=== PATIENT | female | born 1935 | race Caucasian/White ===

== ENCOUNTER 2017-05-20 19:22 | Inpatient (IN) | payer MEDICARE, BC ==
[2017-05-20] MEDS ORDERED: Albuterol/Ipratropium 3.0-0.5 MG/3 ML Neb Soln NEB ONE (19:48)
[2017-05-20] MEDS: Sodium Chloride 0.9% 10 ML Syringe FLUSH PRN (19:58)
[2017-05-20] MEDS ORDERED: Cefepime 2 GM in Premix Bag 1 BAG IV ONE (19:59)
[2017-05-20] MEDS ORDERED: Vancomycin 1 GM, Vancomycin 500 MG in Sodium Chloride 0.9% 500 ML IV SCH (20:00)
[2017-05-20] MEDS ORDERED: Sodium Chloride 0.9% 500 ML IV ONE (20:17)
[2017-05-20] MEDS ORDERED: methylPREDNISolone Sodium Succinate 125 MG/2 ML SDV IVPUSH ONE (20:18)
--- NOTE | 2017-05-20 20:19 | EDM.PDOC ---
ED HPI GENERAL MEDICAL PROBLEM - General Chief Complaint: Respiratory Problem Stated Complaint: RAPID HEART BEAT Time Seen by Provider: 05/20/17 19:32 Source of Information: Reports: Patient History Limitations: Reports: No Limitations - History of Present Illness INITIAL COMMENTS - FREE TEXT/NARRATIVE: The patient is an 82-year-old female with a history of a prior partial pneumonectomy due to lung cancer many years ago without recurrence of cancer, COPD, baseline oxygen requirement of 2 L/m, renal insufficiency, who presents to the emergency department today with cough and shortness of breath. She states she's been ill for about a month. She's had a cough that is productive of clear sputum. This seems to be getting worse. She's also been feeling mildly short of breath. No chest pain. She completed a course of an antibiotic and didn 't improve. She was seen in clinic today and noted to be hypoxic and tachycardic so sent here for further evaluation. She denies fever. No abdominal pain or vomiting. No lower extremity pain or swelling. - Related Data Allergies Allergy/AdvReac Type Severity Reaction Status Date / Time levofloxacin [From Levaquin] Allergy Cannot Verified 05/20/17 19:33 Remember Home Meds: Home Meds Albuterol [Take Home: Albuterol 6.7 GM, 1 INH Pack] 1 dose INH ASDIRECTED PRN [History] Albuterol/Ipratropium [DuoNeb 3.0-0.5 MG/3 ML] 1 dose INH ASDIRECTED PRN [History] Allopurinol [Zyloprim] 200 mg PO DAILY 05/20/17 [History] Cefdinir [Omnicef] 300 mg PO BID 05/20/17 [History] Diltiazem HCl [Cardizem] 60 mg PO BID 05/20/17 [History] Fluticasone/Salmeterol [Advair 250-50 Diskus] 1 puff INH ASDIRECTED PRN [History] Furosemide [Lasix] 80 mg PO DAILY 05/20/17 [History] Levothyroxine 125 mcg PO DAILY 05/20/17 [History] Lisinopril 20 mg PO BEDTIME 05/20/17 [History] Methotrexate 2 tab PO WEEKLY 05/20/17 [History] ED ROS GENERAL - Review of Systems Review Of Systems: See Below Constitutional: Reports: Weakness, Fatigue. Denies: Fever HEENT: Reports: No Symptoms Respiratory: Reports: Shortness of Breath, Cough Cardiovascular: Denies: Chest Pain Endocrine: Reports: No Symptoms GI/Abdominal: Denies: Abdominal Pain : Reports: No Symptoms Musculoskeletal: Reports: No Symptoms. Denies: Leg Pain, Joint Swelling Skin: Reports: No Symptoms Neurological: Reports: No Symptoms Psychiatric: Reports: No Symptoms Hematologic/Lymphatic: Reports: No Symptoms Immunologic: Reports: No Symptoms ED EXAM, GENERAL - Physical Exam Exam: See Below Exam Limited By: No Limitations General Appearance: Alert, WD/WN, No Apparent Distress Eye Exam: Bilateral Eye: Normal Inspection Ears: Normal External Exam Nose: Normal Inspection Throat/Mouth: Normal Voice, Other (Dry mucous membranes) Head: Atraumatic, Normocephalic Neck: Normal Inspection, Supple, Non-Tender, Full Range of Motion Respiratory/Chest: No Respiratory Distress, No Accessory Muscle Use, Other (Few basilar crackles and wheezes). No: Decreased Breath Sounds Cardiovascular: Normal Peripheral Pulses, No Edema, No Murmur, Tachycardia GI/Abdominal: Soft, Non-Tender, No Distention. No: Rebound Back Exam: Normal Inspection Extremities: Normal Inspection, Non-Tender. No: Pedal Edema Neurological: Alert, Oriented, Normal Cognition, No Motor/Sensory Deficits Psychiatric: Normal Affect, Normal Mood Skin Exam: Warm, Dry, Intact, Normal Color, No Rash Course - Vital Signs Last Recorded V/S: Last Vital Signs Temp 36.6 C 05/20/17 19:28 Pulse 90 05/20/17 19:28 Resp 20 05/20/17 19:28 BP 88/58 L 05/20/17 19:28 Pulse Ox 90 L 05/20/17 20:30 - Orders/Labs/Meds Orders: Active Orders 24 hr Category Date Time Status EKG 12 Lead [EKG Documentation Completion] [RC] STAT Care 05/20/17 19:35 Active Peripheral IV Care [RC] . DIRECTED Care 05/20/17 19:36 Active RT Aerosol Therapy [RC] ASDIRECTED Care 05/20/17 19:48 Active Chest 1V Frontal [CR] Stat Exams 05/20/17 19:35 Taken CULTURE BLOOD [BC] Stat Lab 05/20/17 19:55 Received CULTURE BLOOD [BC] Stat Lab 05/20/17 20:05 Received Sodium Chloride 0.9% [Saline Flush] Med 05/20/17 19:36 Active 10 ml FLUSH ASDIRECTED PRN Vancomycin 1 gm Med 05/20/17 20:00 Active Vancomycin 500 mg Sodium Chloride 0.9% [Normal Saline] 500 ml IV Q24H Blood Culture x2 Reflex Set [OM.PC] Stat Oth 05/20/17 19:36 Ordered Peripheral IV Insertion Adult [OM.PC] Routine Oth 05/20/17 19:36 Ordered Medication Orders Vancomycin HCl 1 gm/Vancomycin HCl 500 mg/ Sodium Chloride 500 mls @ 333 mls/ hr IV Q24H DANIEL Last Admin: 05/20/17 21:05 Dose: 333 mls/hr Sodium Chloride (Saline Flush) 10 ml FLUSH ASDIRECTED PRN PRN Reason: Keep Vein Open Last Admin: 05/20/17 19:58 Dose: 10 ml Labs: Laboratory Tests 05/20/17 05/20/17 05/20/17 Range/Units 19:55 19:55 20:05 WBC 14.77 H (3.98-10.04) K/mm3 RBC 3.35 L (3.98-5.22) M/mm3 Hgb 11.5 (11.2-15.7) gm/L Hct 34.8 (34.1-44.9) % MCV 103.9 H (79.4-94.8) fl MCH 34.3 H (25.6-32.2) pg MCHC 33.0 (32.2-35.5) g/dl RDW Std Deviation 64.8 H (36.4-46.3) fL Plt Count 405 H (182-369) K/mm3 MPV 9.7 (9.4-12.3) fl Neut % (Auto) 65.4 (34.0-71.1) % Lymph % (Auto) 13.3 L (19.3-51.7) % [place] % (Auto) 15.7 H (4.7-12.5) % Eos % (Auto) 3.7 (0.7-5.8) Baso % (Auto) 0.9 (0.1-1.2) % Neut # (Auto) 9.67 H (1.56-6.13) K/mm3 Lymph # (Auto) 1.96 (1.18-3.74) K/mm3 [place] # (Auto) 2.32 H (0.24-0.36) K/mm3 Eos # (Auto) 0.54 H (0.04-0.36) K/mm3 Baso # (Auto) 0.13 H (0.01-0.08) K/mm3 Manual Slide Review Abnormal smear Sodium 139 (136-145) mEq/L Potassium 3.8 (3.5-5.1) mEq/L Chloride 101 (98-107) mEq/L Carbon Dioxide 27 (21-32) mEq/L Anion Gap 14.8 (5-15) BUN 42 H (7-18) mg/dL Creatinine 2.4 H (0.55-1.02) mg/dL Est Cr Clr Drug Dosing 13.40 mL/min Estimated GFR (MDRD) 19 (>60) mL/min BUN/Creatinine Ratio 17.5 (14-18) Glucose 162 H (83-115) mg/dL Lactic Acid 1.3 (0.4-2.0) mmol/L Calcium 9.9 (8.5-10.1) mg/dL Magnesium 1.9 (1.8-2.4) mg/dl Total Bilirubin 0.4 (0.2-1.0) mg/dL AST 25 (15-37) U/L ALT 23 (14-59) U/L Alkaline Phosphatase 54 (46-116) U/L Troponin I 0.084 H* (0.00-0.056) ng/mL NT-Pro-B Natriuret Pep 75172 H (0-450) pg/mL Total Protein 6.8 (6.4-8.2) g/dl Albumin 2.9 L (3.4-5.0) g/dl Globulin 3.9 gm/dL Albumin/Globulin Ratio 0.7 L (1-2) Lipase 223 (73-393) U/L Meds: Medications Generic Name Dose Route Start Last Admin Trade Name Freq PRN Reason Stop Dose Admin Vancomycin HCl 1 gm/ 500 mls @ 333 mls/hr 05/20/17 20:00 05/20/17 21:05 Vancomycin HCl 500 mg/ Sodium IV 333 mls/hr Chloride Q24H DANIEL Administration Sodium Chloride 10 ml 05/20/17 19:36 05/20/17 19:58 Saline Flush FLUSH 10 ml ASDIRECTED PRN Administration Keep Vein Open Discontinued Medications Generic Name Dose Route Start Last Admin Trade Name Jana PRN Reason Stop Dose Admin Albuterol/Ipratropium 3 ml 05/20/17 19:48 05/20/17 20:34 Duoneb 3.0-0.5 Mg/3 Ml NEB 05/20/17 19:49 3 ml ONETIME ONE Administration Cefepime HCl 2 gm/ Premix 50 mls @ 100 mls/hr 05/20/17 19:59 05/20/17 20:30 IV 05/20/17 20:28 100 mls/hr ONETIME ONE Administration Sodium Chloride 500 mls @ 1,000 mls/hr 05/20/17 20:17 05/20/17 20:30 Normal Saline IV 05/20/17 20:46 1,000 mls/hr ONETIME ONE Administration Methylprednisolone Sodium Succinate 125 mg 05/20/17 20:18 05/20/17 20:26 Solu-Medrol IVPUSH 05/20/17 20:19 125 mg ONETIME ONE Administration - Re-Assessments/Exams Free Text/Narrative Re-Assessment/Exam: 05/20/17 21:40 Chest x-ray shows right hemidiaphragm is elevated, similar to prior. Slight increased interstitial markings and haziness at the bases and in the left perihilar area. There are some discrete appearing pulmonary nodules versus foci of infection in the left perihilar area. EKG shows normal sinus rhythm, tachycardia, diffuse subtle ST depressions, no ST elevation, suspicious for supply demand ischemia. Lab significant for elevated BNP, minimally elevated troponin, elevated creatininepatient does have a history of renal insufficiency and baseline creatinine is unknown. White blood cell count is also elevated. I believe the patient has a mixed picture is far as etiology of her hypoxia and shortness of breath. I do suspect possible early pneumonia based on her worsening cough and tachycardia and chest x-ray findings as well as her elevated white blood cell count, broad-spectrum antibiotics ordered given recent failure of by mouth antibiotics. Next, she may have a component of CHF exacerbationher BNP is quite elevated and she does have some mildly increased pulmonary markings, however she does not have any peripheral evidence of volume overload. I did give her a small bolus upon arrival due to tachycardia, hypotension, and suspected infection. We'll defer further fluid management to the hospitalist. Next she does have a significantly elevated creatinine though baseline is unknown. Meanwhile, she does look reasonably well and is only requiring 3 L/m oxygen via nasal cannula after nebulizer treatment. Discussed with Dr. Cannon who agrees to admit the patient for further care. Departure - Departure Time of Disposition: 21:03 Disposition: Admitted As Inpatient 65 Clinical Impression: Troponin I above reference range, COPD exacerbation, Hypoxia Pneumonia Qualifiers: Pneumonia type: due to unspecified organism Laterality: bilateral Lung location : lower lobe of lung Qualified Code(s): J18.9 - Pneumonia, unspecified organism Chronic renal insufficiency Qualifiers: Chronic kidney disease stage: unspecified stage Qualified Code(s): N18.9 - Chronic kidney disease, unspecified CHF exacerbation Qualifiers: Congestive heart failure type: unspecified congestive heart failure type Qualified Code(s): I50.9 - Heart failure, unspecified - Discharge Information Referrals: Eduardo Rosas MD [Primary Care Provider] - Forms: ED Department Discharge - My Orders Last 24 Hours: My Active Orders 05/20/17 19:35 EKG 12 Lead [EKG Documentation Completion] [RC] STAT Chest 1V Frontal [CR] Stat 05/20/17 19:36 Peripheral IV Care [RC] . DIRECTED Sodium Chloride 0.9% [Saline Flush] 10 ml FLUSH ASDIRECTED PRN Blood Culture x2 Reflex Set [OM.PC] Stat Peripheral IV Insertion Adult [OM.PC] Routine 05/20/17 19:48 RT Aerosol Therapy [RC] ASDIRECTED 05/20/17 19:55 CULTURE BLOOD [BC] Stat 05/20/17 20:00 Vancomycin 1 gm Vancomycin 500 mg Sodium Chloride 0.9% [Normal Saline] 500 ml IV Q24H 05/20/17 20:05 CULTURE BLOOD [BC] Stat - Assessment/Plan Last 24 Hours: My Active Orders 05/20/17 19:35 EKG 12 Lead [EKG Documentation Completion] [RC] STAT Chest 1V Frontal [CR] Stat 05/20/17 19:36 Peripheral IV Care [RC] . DIRECTED Sodium Chloride 0.9% [Saline Flush] 10 ml FLUSH ASDIRECTED PRN Blood Culture x2 Reflex Set [OM.PC] Stat Peripheral IV Insertion Adult [OM.PC] Routine 05/20/17 19:48 RT Aerosol Therapy [RC] ASDIRECTED 05/20/17 19:55 CULTURE BLOOD [BC] Stat 05/20/17 20:00 Vancomycin 1 gm Vancomycin 500 mg Sodium Chloride 0.9% [Normal Saline] 500 ml IV Q24H 05/20/17 20:05 CULTURE BLOOD [BC] Stat
[2017-05-20] MEDS ORDERED: Acetaminophen 325 MG Tab PO PRN (23:26)
[2017-05-20] MEDS ORDERED: Albuterol/Ipratropium 3.0-0.5 MG/3 ML Neb Soln NEB PRN (23:26)
[2017-05-20] MEDS ORDERED: Temazepam 7.5 MG Cap PO PRN (23:26)
[2017-05-20] MEDS ORDERED: Cefepime 1 GM in Premix Bag 1 BAG IV SCH (23:30)
[2017-05-20] MEDS ORDERED: Sodium Chloride 0.9% 1,000 ML IV SCH (23:30)
[2017-05-21] MEDS: methylPREDNISolone Sodium Succinate 125 MG/2 ML SDV IVPUSH SCH ×4 (04:49→22:05)
[2017-05-21] MEDS ORDERED: Albuterol/Ipratropium 3.0-0.5 MG/3 ML Neb Soln INH PRN (06:28)
--- NOTE | 2017-05-21 06:35 | PCM.HP ---
H&P History of Present Illness - General Date of Service: 05/21/17 Admit Problem/Dx: Analy is an 82yo female, appears younger than her age who presented to ED with worsening SOB over the past few weeks. She was seen in the clinic and given rx for PO antibiotics. She has been more fatigued, coughing with thick sputum the past few days, minimal appetite and worsened SOB/BLUNT symptoms the past 2 days. She denies f/c/s. She was seen again at the clinic today, found to be hypoxic and sent to ED for further evaluation. ED evaluation: is with WBC elevated at 14.77, macrocytosis but normal H&H, platelets elevated at 405. Metabolic panel with creatinine of 2.4, BUN of 42, normal electrolytes and magnesium. Glucose is elevated at 162. Normal liver enzymes. Lactic acid normal at 1.3. Troponin is slightly elevated at 0.084, BNP significantly elevated at 26,969 and lipase normal at 223. CXR shows interstitial markings increased and likely LLL pneumonia. She has PMH of prior lung cancer s/p lobectomy years ago, COPD, CKD, hx of RA, takes MTX on Mondays, hypothyroid, CKD stage 4 at baseline, follows Print [employer] Dr. Perez. Hospitalist service is consulted for admission for CHF exacerbation, PNA and elevated troponin. PCP is Dr. Rosas with [facility] in [place]. She is DNR/DNI. Source of Information: Patient, Other (ED notes) History Limitations: Reports: No Limitations - History of Present Illness Onset of Symptoms: Reports: Gradual Duration of Symptoms: Reports: Week(s): Location: Reports: Chest Improves with: Reports: None Worsens with: Reports: Breathing Associated Symptoms: Reports: Cough, Loss of Appetite, Malaise, Shortness of Breath, Weakness - Related Data Home Medications: Home Meds Albuterol [Take Home: Albuterol 6.7 GM, 1 INH Pack] 1 dose INH ASDIRECTED PRN [History] Albuterol/Ipratropium [DuoNeb 3.0-0.5 MG/3 ML] 1 dose INH ASDIRECTED PRN [History] Allopurinol [Zyloprim] 200 mg PO DAILY 05/20/17 [History] Cefdinir [Omnicef] 300 mg PO BID 05/20/17 [History] Diltiazem HCl [Cardizem] 60 mg PO BID 05/20/17 [History] Fluticasone/Salmeterol [Advair 250-50 Diskus] 1 puff INH ASDIRECTED PRN [History] Furosemide [Lasix] 80 mg PO DAILY 05/20/17 [History] Levothyroxine 125 mcg PO DAILY 05/20/17 [History] Lisinopril 20 mg PO DAILY 05/20/17 [History] Methotrexate 2 tab PO WEEKLY 05/20/17 [History] Past Medical History HEENT History: Reports: Impaired Vision Other HEENT History: glasses Cardiovascular History: Reports: High Cholesterol, Hypertension Respiratory History: Reports: COPD Genitourinary History: Reports: Other (See Below) Other Genitourinary History: low kidney function [employer] History: Reports: Other OB/BYN History: 5 kids Musculoskeletal History: Reports: Arthritis Endocrine/Metabolic History: Reports: Hypothyroidism, Obesity/BMI 30+ Oncologic (Cancer) History: Reports: Lung Dermatologic History: Reports: Psoriasis - Past Surgical History HEENT Surgical History: Reports: Adenoidectomy, Cataract Surgery, Tonsillectomy Other Respiratory Surgeries/Procedures: hx lung CA - Patient stated she had 2 of the 3 lobes on the right side removed. Use oxygen at home 2L/NC. GI Surgical History: Reports: Cholecystectomy Oncologic Surgical History: Reports: Lobectomy Social & Family History - Family History Family Medical History: Noncontributory - Tobacco Use Smoking Status *Q: Former Smoker Years of Tobacco use: 40 Packs/Tins Daily: 1 Used Tobacco, but Quit: Yes Month Tobacco Last Used: 1990 - Caffeine Use Caffeine Use: Reports: Coffee Other Caffeine Use: couple cups in the morning - Recreational Drug Use Recreational Drug Use: No H&P Review of Systems - Review of Systems: Review Of Systems: See Below General: Reports: Malaise, Weakness, Fatigue. Denies: Fever, Chills HEENT: Reports: No Symptoms Pulmonary: Reports: Shortness of Breath, Cough, Sputum. Denies: Hemoptysis Cardiovascular: Reports: Dyspnea on Exertion. Denies: Chest Pain, Palpitations Gastrointestinal: Reports: No Symptoms. Denies: Nausea, Vomiting Genitourinary: Reports: No Symptoms Musculoskeletal: Reports: No Symptoms Neurological: Reports: No Symptoms Exam - Exam Exam: See Below - Vital Signs Vital Signs: Last Vital Signs Temp 97.3 F 05/21/17 02:44 Pulse 86 05/21/17 02:44 Resp 19 05/21/17 02:44 BP 100/59 L 05/21/17 02:44 Pulse Ox 96 05/21/17 02:44 Weight: 183 lb 9.6 oz - Exam Quality Assessment: Supplemental Oxygen, DVT Prophylaxis General: Alert, Oriented, Cooperative HEENT: Conjunctiva Clear, Mucosa Moist & [place], Pupils Equal, PERRLA Neck: Supple. No: JVD Lungs: Normal Respiratory Effort, Decreased Breath Sounds (bases), Rhonchi (exp mid to lower lobes bilat) GI/Abdominal Exam: Normal Bowel Sounds, Soft, Non-Tender (Female) Exam: Deferred Rectal (Female) Exam: Deferred Extremities: Normal Capillary Refill, Pedal Edema (trace to ankles) Peripheral Pulses: 1+: Dorsalis Pedis (L), Dorsalis Pedis (R) Neurological: Cranial Nerves Intact Neuro Extensive - Mental Status: Alert, Oriented x3, Normal Mood/Affect, Normal Cognition, Memory Intact Psychiatric: Alert, Normal Affect, Normal Mood - Patient Data Lab Results Last 24 hrs: Laboratory Results - last 24 hr 05/21/17 05/21/17 Range/Units 05:02 05:10 WBC 9.75 (3.98-10.04) K/mm3 RBC 3.15 L (3.98-5.22) M/mm3 Hgb 10.9 L (11.2-15.7) gm/L Hct 32.5 L (34.1-44.9) % MCV 103.2 H (79.4-94.8) fl MCH 34.6 H (25.6-32.2) pg MCHC 33.5 (32.2-35.5) g/dl RDW Std Deviation 64.9 H (36.4-46.3) fL Plt Count 381 H (182-369) K/mm3 MPV 9.7 (9.4-12.3) fl Neut % (Auto) 91.2 H (34.0-71.1) % Lymph % (Auto) 6.5 L (19.3-51.7) % [place] % (Auto) 0.5 L (4.7-12.5) % Eos % (Auto) 0.2 L (0.7-5.8) Baso % (Auto) 0.6 (0.1-1.2) % Neut # (Auto) 8.89 H (1.56-6.13) K/mm3 Lymph # (Auto) 0.63 L (1.18-3.74) K/mm3 [place] # (Auto) 0.05 L (0.24-0.36) K/mm3 Eos # (Auto) 0.02 L (0.04-0.36) K/mm3 Baso # (Auto) 0.06 (0.01-0.08) K/mm3 Manual Slide Review Abnormal smear Sodium 140 (136-145) mEq/L Potassium 4.0 (3.5-5.1) mEq/L Chloride 105 (98-107) mEq/L Carbon Dioxide 23 (21-32) mEq/L Anion Gap 16.0 H (5-15) BUN 40 H (7-18) mg/dL Creatinine 2.2 H (0.55-1.02) mg/dL Est Cr Clr Drug Dosing 14.97 mL/min Estimated GFR (MDRD) 21 (>60) mL/min BUN/Creatinine Ratio 18.2 H (14-18) Glucose 184 H (83-115) mg/dL Calcium 9.4 (8.5-10.1) mg/dL Magnesium 1.9 (1.8-2.4) mg/dl Result Diagrams: 05/22/17 05:50 05/22/17 05:50 *Q Meaningful Use (ADM) - VTE *Q VTE Criteria *Q: - Stroke *Q Stroke Criteria *Q: - AMI *Q AMI Criteria *Q: - Problem List (1) CHF exacerbation SNOMED Code(s): 79617153 ICD Code: I50.9 - HEART FAILURE, UNSPECIFIED Status: Acute Priority: High Current Visit: Yes Qualifiers: Congestive heart failure type: unspecified congestive heart failure type Qualified Code(s): I50.9 - Heart failure, unspecified (2) COPD exacerbation SNOMED Code(s): 040158044562211 ICD Code: J44.1 - CHRONIC OBSTRUCTIVE PULMONARY DISEASE W (ACUTE) EXACERBATION Status: Acute Priority: High Current Visit: Yes (3) Hypoxia SNOMED Code(s): 443260780 ICD Code: R09.02 - HYPOXEMIA Status: Acute Priority: High Current Visit : Yes (4) Pneumonia SNOMED Code(s): 981654299 ICD Code: J18.9 - PNEUMONIA, UNSPECIFIED ORGANISM Status: Acute Priority : High Current Visit: Yes Qualifiers: Pneumonia type: due to unspecified organism Laterality: bilateral Lung location: lower lobe of lung Qualified Code(s): J18.9 - Pneumonia, unspecified organism (5) Troponin I above reference range SNOMED Code(s): 915964480 ICD Code: R74.8 - ABNORMAL LEVELS OF OTHER SERUM ENZYMES Status: Acute Current Visit: Yes (6) Chronic renal insufficiency SNOMED Code(s): 623173057 ICD Code: N18.9 - CHRONIC KIDNEY DISEASE, UNSPECIFIED Status: Chronic Priority: High Current Visit: Yes Qualifiers: Chronic kidney disease stage: stage 4 (severe) Qualified Code(s): N18.4 - Chronic kidney disease, stage 4 (severe) Problem List Initiated/Reviewed/Updated: Yes Orders Last 24hrs: Active Orders 24 hr Category Date Time Status Patient Status [ADT] Routine ADT 05/20/17 20:22 Active Activity as Tolerated [RC] .Routine Care 05/20/17 23:26 Active RT Aerosol Therapy [RC] ASDIRECTED Care 05/20/17 23:28 Active OT Evaluation and Treatment [CONS] Routine Cons 05/20/17 23:26 Active PT Evaluation and Treatment [CONS] Routine Cons 05/20/17 23:26 Active VANCOMYCIN RANDOM [CHEM] Routine Lab 05/21/17 21:00 Ordered Acetaminophen [Tylenol] Med 05/20/17 23:26 Active 650 mg PO Q6H PRN Albuterol/Ipratropium [DuoNeb 3.0-0.5 MG/3 ML] Med 05/21/17 06:28 Ordered 1 dose INH ASDIRECTED PRN Albuterol/Ipratropium [DuoNeb 3.0-0.5 MG/3 ML] Med 05/20/17 23:26 Active 3 ml NEB Q6HRRT PRN Allopurinol [Zyloprim] Med 05/21/17 09:00 Ordered 200 mg PO DAILY Cefepime [Maxipime in D5W 1 GM/50 ML] 1 gm Med 05/21/17 20:30 Active Premix Bag 1 bag IV Q24H Diltiazem IR [Cardizem] Med 05/21/17 09:00 Ordered 60 mg PO BID Fluticasone/Salmeterol Med 05/21/17 09:00 Ordered 1 puff INH BID Furosemide [Lasix] Med 05/21/17 09:00 Ordered 80 mg PO DAILY Levothyroxine Med 05/21/17 09:00 Ordered 125 mcg PO DAILY Lisinopril [Prinivil] Med 05/21/17 09:00 Ordered 20 mg PO DAILY Sodium Chloride 0.9% [Normal Saline] 1,000 ml Med 05/20/17 23:30 Active IV ASDIRECTED Temazepam [Restoril] Med 05/20/17 23:26 Active 7.5 mg PO BEDTIME PRN Vancomycin Pharmacy to Dose [Pharmacy to Dose - Med 05/20/17 23:45 Pending Vancomycin] 1 dose .XX ASDIRECTED methylPREDNISolone Sod Succ [Solu-MEDROL] Med 05/21/17 05:00 Active 125 mg IVPUSH Q6H CM Social Work Follow Up [CM] Routine Oth 05/20/17 23:26 Active Resuscitation Status Routine Resus Stat 05/20/17 22:55 Ordered Medication Orders Acetaminophen (Tylenol) 650 mg PO Q6H PRN PRN Reason: Fever Albuterol/Ipratropium (Duoneb 3.0-0.5 Mg/3 Ml) 3 ml NEB Q6HRRT PRN PRN Reason: Shortness of Breath Albuterol/Ipratropium (Duoneb 3.0-0.5 Mg/3 Ml) ml INH ASDIRECTED PRN PRN Reason: Shortness of Breath Allopurinol (Zyloprim) 200 mg PO DAILY DANIEL Diltiazem HCl (Cardizem) 60 mg PO BID DANIEL Furosemide (Lasix) 80 mg PO DAILY DANIEL Sodium Chloride (Normal Saline) 1,000 mls @ 100 mls/hr IV ASDIRECTED DANIEL Last Admin: 05/21/17 00:20 Dose: 100 mls/hr Cefepime HCl 1 gm/ Premix 50 mls @ 100 mls/hr IV Q24H DANIEL Levothyroxine Sodium (Levothyroxine) 125 mcg PO DAILY DANIEL Lisinopril (Prinivil) 20 mg PO DAILY DANIEL Methylprednisolone Sodium Succinate (Solu-Medrol) 125 mg IVPUSH Q6H [facility] Last Admin: 05/21/17 04:49 Dose: 125 mg Non-Formulary Medication (Fluticasone/Salmeterol) 1 puff INH BID [facility] Sodium Chloride (Saline Flush) 10 ml FLUSH ASDIRECTED PRN PRN Reason: Keep Vein Open Last Admin: 05/20/17 19:58 Dose: 10 ml Temazepam (Restoril) 7.5 mg PO BEDTIME PRN PRN Reason: Sleep Vancomycin HCl (Pharmacy To Dose - Vancomycin) 1 dose .XX ASDIRECTED [facility] Assessment/Plan Comment:: I/P: Hypoxia- Etiology is multifactorial and noted below -On 3-4/NC -- keep sats >90%; is on chronic O2 at home of 2L/NC Pneumonia- Etiology uncertain at this time. -Cont on IV abx for now -Aggressive RT/pulmonary toilet--nebs, IS/FV -CXR with likely LLL pna -Negative flu a/b, will check mycoplasma, strep pneumo, respiratory viral panel. -BC obtained in ED, normal lactic acid -Follow am labs CHF exacerbation -Echo ordered; no old one on file. -Diurese, with caution due to CKD; is on 80mg lasix Qam as home med -BNP tomorrow -Faculty Research Assistant for CHF education CKD- stage 4 -Does follow Print Traffic Manager, Dr. Perez -Follow and trend renal function -Caution with diuresis as above -monitor electrolytes, K+ and Mg daily COPD exacerbation -IV solumedrol -RT and pulmonary care as above Troponin elevated -Trend and follow; repeat in 4 hours with CKMB, repeat EKG. -Likely demand due to CHF/hypoxia and CKD Hypothyroidism -Check TSH Elevated blood sugar -Check A1C Other: GI prophylax DVT prophylax Faculty Research Assistant consult PT/OT- ambulate in hallways if able CM/SW for assist with DC planning--Plan DC 3-4 days after appropriate tx for PNA , diuresis and further evaluation. PCP is Dr. Rosas with [facility] in [place]. Patient is DNR/DNI code status.
[2017-05-21] MEDS ORDERED: Albuterol 0.083% 2.5 MG/3 ML Neb Soln NEB PRN (06:43)
[2017-05-21] MEDS ORDERED: Levothyroxine 125 MCG Tab PO SCH (06:45)
[2017-05-21] MEDS: Formoterol/Mometasone 200-5 MCG 8.8 GM Inhaler IH SCH ×2 (07:15→20:25)
[2017-05-21] MEDS: Allopurinol 100 MG Tab PO SCH (08:59)
[2017-05-21] MEDS: Enoxaparin 30 MG/0.3 ML Syringe SUBCUT SCH ×2 (09:00→09:02)
[2017-05-21] MEDS: Famotidine 20 MG Tab PO SCH (09:00)
[2017-05-21] MEDS: Diltiazem IR 60 MG Tab PO SCH ×2 (09:00→22:06)
[2017-05-21] MEDS ORDERED: Furosemide 80 MG Tab PO SCH (09:00)
[2017-05-21] MEDS: Lisinopril 20 MG Tab PO SCH (09:00)
--- NOTE | 2017-05-21 10:59 | CR ---
Chest: Portable view of the chest was obtained. Comparison: Prior chest x-ray of 09/26/16. Elevated right hemidiaphragm is seen compatible with chronic pleural change within the right lung base. No acute parenchymal change seen within either lung. Heart size is normal. Mild tortuosity of the thoracic aorta is seen. Bony structures are grossly intact. Impression: 1. Chronic findings within the right lung base. Nothing acute is identified on portable chest x-ray. Diagnostic code #2
--- NOTE | 2017-05-21 10:59 | CR ---
Chest: Two views of the chest were obtained. Comparison: Prior chest x-ray of 05/20/17. Chronic change is identified within the right lung base. Left sided lung markings are increased from prior exam. Findings may represent pulmonary vascular congestion if patient has had an acute cardiac event. Heart does not appear enlarged. Lungs otherwise are clear. Bony structures are grossly intact. Impression: 1. Chronic change within the right lung base. 2. Increased lung markings to the left chest is an interval change from prior study possibly due to asymmetric pulmonary vascular congestion. Diagnostic code #3
[2017-05-21] MEDS ORDERED: Piperacillin/Tazobactam 4.5 GM in Sodium Chloride 0.9% 100 ML IV ONE (12:00)
[2017-05-21] MEDS ORDERED: diphenhydrAMINE 50 MG/ML SDV IVPUSH PRN (12:27)
[2017-05-21] MEDS: Tiotropium Inhaler 18 MCG Inhalation Powder Cap Kit of 5 INH SCH (12:31)
[2017-05-21] MEDS: Albuterol/Ipratropium 3.0-0.5 MG/3 ML Neb Soln NEB SCH ×3 (12:32→20:25)
[2017-05-21] MEDS ORDERED: Bumetanide 1 MG/4 ML MDV IVPUSH ONE (12:36)
[2017-05-21] MEDS ORDERED: Bumetanide 1 MG Tab PO ONE (12:40)
[2017-05-21] MEDS: Levofloxacin/Dextrose 5%-Water 250 MG in Premix Bag 1 BAG IV SCH (14:06)
[2017-05-21] MEDS ORDERED: Cefepime 1 GM in Premix Bag 1 BAG IV SCH (20:30)
[2017-05-22] MEDS: Piperacillin/Tazobactam 4.5 GM in Sodium Chloride 0.9% 100 ML IV SCH ×3 (00:38→23:36)
[2017-05-22] MEDS: Levothyroxine 100 MCG Tab PO SCH (05:29)
[2017-05-22] MEDS: methylPREDNISolone Sodium Succinate 125 MG/2 ML SDV IVPUSH SCH (05:30)
[2017-05-22] MEDS: Albuterol/Ipratropium 3.0-0.5 MG/3 ML Neb Soln NEB SCH ×4 (05:47→20:29)
[2017-05-22] MEDS: Formoterol/Mometasone 200-5 MCG 8.8 GM Inhaler IH SCH ×2 (05:47→20:29)
[2017-05-22] MEDS: Furosemide 40 MG Tab PO SCH ×2 (06:58→13:50)
[2017-05-22] MEDS ORDERED: Furosemide 20 MG/2 ML VIAL IVPUSH ONE (08:32)
--- NOTE | 2017-05-22 08:45 | PCM.PN ---
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 She is coughing minimally but is thick and productive on occasion. No f/c/s overnight. No n/v. Appetite is better. Overall she is feeling better today; continues on 3L/NC. PCP is Dr. Rosas Therapeutic Recreation Assistant is Dr. Perez Functional Status: Reports: Pain Controlled, Tolerating Diet, Ambulating, Urinating, Incentive Spirometry - Review of Systems General: Reports: No Symptoms. Denies: Fever, Chills, Night Sweats HEENT: Reports: No Symptoms Pulmonary: Reports: Shortness of Breath (minimal), Cough, Sputum. Denies: Pleuritic Chest Pain, Hemoptysis Cardiovascular: Reports: Dyspnea on Exertion (mild to moderate). Denies: Edema Gastrointestinal: Reports: No Symptoms Genitourinary: Reports: No Symptoms Musculoskeletal: Reports: No Symptoms Neurological: Reports: No Symptoms - Patient Data Vitals - Most Recent: Last Vital Signs Temp 97.2 F 05/22/17 03:14 Pulse 87 05/22/17 03:14 Resp 18 05/22/17 03:14 BP 91/56 L 05/22/17 03:16 Pulse Ox 93 L 05/22/17 05:49 Weight - Most Recent: 183 lb 9.6 oz I&O - Last 24 Hours: Intake & Output 05/21/17 05/22/17 05/22/17 22:59 06:59 14:59 Intake Total 450 900 Balance 450 900 Lab Results Last 24 Hours: Laboratory Results - last 24 hr 05/21/17 05/21/17 05/21/17 Range/Units 05:10 05:10 08:40 WBC (3.98-10.04) K/mm3 RBC (3.98-5.22) M/mm3 Hgb (11.2-15.7) gm/L Hct (34.1-44.9) % MCV (79.4-94.8) fl MCH (25.6-32.2) pg MCHC (32.2-35.5) g/dl RDW Std Deviation (36.4-46.3) fL Plt Count (182-369) K/mm3 MPV (9.4-12.3) fl Neut % (Auto) (34.0-71.1) % Lymph % (Auto) (19.3-51.7) % [place] % (Auto) (4.7-12.5) % Eos % (Auto) (0.7-5.8) Baso % (Auto) (0.1-1.2) % Neut # (Auto) (1.56-6.13) K/mm3 Lymph # (Auto) (1.18-3.74) K/mm3 [place] # (Auto) (0.24-0.36) K/mm3 Eos # (Auto) (0.04-0.36) K/mm3 Baso # (Auto) (0.01-0.08) K/mm3 Manual Slide Review Sodium (136-145) mEq/L Potassium (3.5-5.1) mEq/L Chloride (98-107) mEq/L Carbon Dioxide (21-32) mEq/L Anion Gap (5-15) BUN (7-18) mg/dL Creatinine (0.55-1.02) mg/dL Est Cr Clr Drug Dosing mL/min Estimated GFR (MDRD) (>60) mL/min BUN/Creatinine Ratio (14-18) Glucose (83-115) mg/dL Hemoglobin A1c 6.40 H (4.50-6.20) % Calcium (8.5-10.1) mg/dL Magnesium (1.8-2.4) mg/dl CK-MB (CK-2) (0-3.6) ng/ml Troponin I (0.00-0.056) ng/mL C-Reactive Protein (<1.0) mg/dL NT-Pro-B Natriuret Pep (0-450) pg/mL TSH 3rd Generation 0.232 L (0.358-3.74) uIU/mL Urine Color Yellow (Yellow) Urine Appearance Clear (Clear) Urine pH 5.5 (5.0-8.0) Ur Specific [place] 1.015 (1.005-1.030) Urine Protein Negative (Negative) Urine Glucose (UA) Negative (Negative) Urine Ketones Negative (Negative) Urine Occult Blood Negative (Negative) Urine Nitrite Negative (Negative) Urine Bilirubin Negative (Negative) Urine Urobilinogen 0.2 (0.2-1.0) Ur Leukocyte Esterase Trace H (Negative) Urine RBC 0-5 (0-5) /hpf Urine WBC 5-10 H (0-5) /hpf Ur Epithelial Cells 0-5 (0-5) /hpf Urine Bacteria Few (FEW) /hpf Hyaline Casts 0-5 (0-5) /lpf Urine Mucus Not seen (FEW) /hpf 05/21/17 05/22/17 05/22/17 Range/Units 11:15 05:50 05:50 WBC (3.98-10.04) K/mm3 RBC (3.98-5.22) M/mm3 Hgb (11.2-15.7) gm/L Hct (34.1-44.9) % MCV (79.4-94.8) fl MCH (25.6-32.2) pg MCHC (32.2-35.5) g/dl RDW Std Deviation (36.4-46.3) fL Plt Count (182-369) K/mm3 MPV (9.4-12.3) fl Neut % (Auto) (34.0-71.1) % Lymph % (Auto) (19.3-51.7) % [place] % (Auto) (4.7-12.5) % Eos % (Auto) (0.7-5.8) Baso % (Auto) (0.1-1.2) % Neut # (Auto) (1.56-6.13) K/mm3 Lymph # (Auto) (1.18-3.74) K/mm3 [place] # (Auto) (0.24-0.36) K/mm3 Eos # (Auto) (0.04-0.36) K/mm3 Baso # (Auto) (0.01-0.08) K/mm3 Manual Slide Review Sodium 139 (136-145) mEq/L Potassium 3.9 (3.5-5.1) mEq/L Chloride 103 (98-107) mEq/L Carbon Dioxide 21 (21-32) mEq/L Anion Gap 18.9 H (5-15) BUN 47 H (7-18) mg/dL Creatinine 2.2 H (0.55-1.02) mg/dL Est Cr Clr Drug Dosing 14.97 mL/min Estimated GFR (MDRD) 21 (>60) mL/min BUN/Creatinine Ratio 21.4 H (14-18) Glucose 165 H (83-115) mg/dL Hemoglobin A1c (4.50-6.20) % Calcium 9.5 (8.5-10.1) mg/dL Magnesium 1.9 (1.8-2.4) mg/dl CK-MB (CK-2) 1.5 (0-3.6) ng/ml Troponin I 0.075 H* (0.00-0.056) ng/mL C-Reactive Protein 3.6 H* (<1.0) mg/dL NT-Pro-B Natriuret Pep 11479 H (0-450) pg/mL TSH 3rd Generation (0.358-3.74) uIU/mL Urine Color (Yellow) Urine Appearance (Clear) Urine pH (5.0-8.0) Ur Specific [place] (1.005-1.030) Urine Protein (Negative) Urine Glucose (UA) (Negative) Urine Ketones (Negative) Urine Occult Blood (Negative) Urine Nitrite (Negative) Urine Bilirubin (Negative) Urine Urobilinogen (0.2-1.0) Ur Leukocyte Esterase (Negative) Urine RBC (0-5) /hpf Urine WBC (0-5) /hpf Ur Epithelial Cells (0-5) /hpf Urine Bacteria (FEW) /hpf Hyaline Casts (0-5) /lpf Urine Mucus (FEW) /hpf 05/22/17 Range/Units 05:50 WBC 9.91 (3.98-10.04) K/mm3 RBC 3.32 L (3.98-5.22) M/mm3 Hgb 11.2 (11.2-15.7) gm/L Hct 33.9 L (34.1-44.9) % MCV 102.1 H (79.4-94.8) fl MCH 33.7 H (25.6-32.2) pg MCHC 33.0 (32.2-35.5) g/dl RDW Std Deviation 63.4 H (36.4-46.3) fL Plt Count 282 (182-369) K/mm3 MPV 10.4 (9.4-12.3) fl Neut % (Auto) 81.5 H (34.0-71.1) % Lymph % (Auto) 4.4 L (19.3-51.7) % [place] % (Auto) 4.7 (4.7-12.5) % Eos % (Auto) 7.8 H (0.7-5.8) Baso % (Auto) 0.1 (0.1-1.2) % Neut # (Auto) 8.07 H (1.56-6.13) K/mm3 Lymph # (Auto) 0.44 L (1.18-3.74) K/mm3 [place] # (Auto) 0.47 H (0.24-0.36) K/mm3 Eos # (Auto) 0.77 H (0.04-0.36) K/mm3 Baso # (Auto) 0.01 (0.01-0.08) K/mm3 Manual Slide Review Abnormal smear Sodium (136-145) mEq/L Potassium (3.5-5.1) mEq/L Chloride (98-107) mEq/L Carbon Dioxide (21-32) mEq/L Anion Gap (5-15) BUN (7-18) mg/dL Creatinine (0.55-1.02) mg/dL Est Cr Clr Drug Dosing mL/min Estimated GFR (MDRD) (>60) mL/min BUN/Creatinine Ratio (14-18) Glucose (83-115) mg/dL Hemoglobin A1c (4.50-6.20) % Calcium (8.5-10.1) mg/dL Magnesium (1.8-2.4) mg/dl CK-MB (CK-2) (0-3.6) ng/ml Troponin I (0.00-0.056) ng/mL C-Reactive Protein (<1.0) mg/dL NT-Pro-B Natriuret Pep (0-450) pg/mL TSH 3rd Generation (0.358-3.74) uIU/mL Urine Color (Yellow) Urine Appearance (Clear) Urine pH (5.0-8.0) Ur Specific [place] (1.005-1.030) Urine Protein (Negative) Urine Glucose (UA) (Negative) Urine Ketones (Negative) Urine Occult Blood (Negative) Urine Nitrite (Negative) Urine Bilirubin (Negative) Urine Urobilinogen (0.2-1.0) Ur Leukocyte Esterase (Negative) Urine RBC (0-5) /hpf Urine WBC (0-5) /hpf Ur Epithelial Cells (0-5) /hpf Urine Bacteria (FEW) /hpf Hyaline Casts (0-5) /lpf Urine Mucus (FEW) /hpf [facility] Results Last 24 Hours: Microbiology 05/21/17 12:10 Respiratory Virus Panel (PCR) ([facility]) - Final Nasopharyngeal Swab Med Orders - Current: Current Medications Acetaminophen (Tylenol) 650 mg PO Q6H PRN PRN Reason: Fever Albuterol (Proventil Neb Soln) 2.5 mg NEB Q4HRRT PRN PRN Reason: sob/wheeze/coughing Albuterol/Ipratropium (Duoneb 3.0-0.5 Mg/3 Ml) 3 ml NEB QIDRT [facility] Last Admin: 05/22/17 05:47 Dose: 3 ml Allopurinol (Zyloprim) 200 mg PO DAILY [facility] Last Admin: 05/21/17 08:59 Dose: 200 mg Diltiazem HCl (Cardizem) 60 mg PO BID [facility] Last Admin: 05/21/17 22:06 Dose: Not Given Diphenhydramine HCl (Benadryl) 50 mg IVPUSH Q4H PRN PRN Reason: rash/itching/allergy Enoxaparin Sodium (Lovenox) 30 mg SUBCUT DAILY [facility] Last Admin: 05/21/17 09:02 Dose: Not Given Famotidine (Pepcid) 20 mg PO DAILY [facility] Last Admin: 05/21/17 09:00 Dose: 20 mg Furosemide (Lasix) 40 mg PO BIDDIURETIC [facility] Last Admin: 05/22/17 06:58 Dose: 40 mg Furosemide (Lasix) 20 mg IVPUSH NOW ONE Stop: 05/22/17 08:33 Piperacillin Sod/Tazobactam (Sod 4.5 gm/ Sodium Chloride) 100 mls @ 25 mls/hr IV Q12H [facility] Last Admin: 05/22/17 00:38 Dose: 25 mls/hr Levofloxacin/Dextrose 250 mg/ (Premix) 50 mls @ 50 mls/hr IV Q24H [facility] Last Admin: 05/21/17 14:06 Dose: 50 mls/hr Levothyroxine Sodium (Synthroid) 100 mcg PO ACBREAKFAST [facility] Last Admin: 05/22/17 05:29 Dose: 100 mcg Lisinopril (Prinivil) 20 mg PO DAILY [facility] Last Admin: 05/21/17 09:00 Dose: 20 mg Methylprednisolone Sodium Succinate (Solu-Medrol) 125 mg IVPUSH Q6H [facility] Last Admin: 05/22/17 05:30 Dose: 125 mg Mometasone Furoate/Formoterol Fumar (Dulera 200-5 Mcg) 0 puff IH BIDRT [facility] Last Admin: 05/22/17 05:47 Dose: 2 puff Sodium Chloride (Saline Flush) 10 ml FLUSH ASDIRECTED PRN PRN Reason: Keep Vein Open Last Admin: 05/20/17 19:58 Dose: 10 ml Spironolactone (Aldactone) 25 mg PO DAILY [facility] Temazepam (Restoril) 7.5 mg PO BEDTIME PRN PRN Reason: Sleep Tiotropium Superior (Spiriva Handihaler) 18 mcg INH DAILY [facility] Last Admin: 05/21/17 12:31 Dose: 1 cap Discontinued Medications Albuterol/Ipratropium (Duoneb 3.0-0.5 Mg/3 Ml) 3 ml NEB ONETIME ONE Stop: 05/20/17 19:49 Last Admin: 05/20/17 20:34 Dose: 3 ml Albuterol/Ipratropium (Duoneb 3.0-0.5 Mg/3 Ml) 3 ml NEB Q6HRRT PRN PRN Reason: Shortness of Breath Bumetanide (Bumex) 1 mg IVPUSH ONETIME ONE Stop: 05/21/17 12:37 Last Admin: 05/21/17 13:24 Dose: Not Given Bumetanide (Bumex) 1 mg PO ONETIME ONE Stop: 05/21/17 12:41 Last Admin: 05/21/17 13:19 Dose: 1 mg Furosemide (Lasix) 80 mg PO DAILY [facility] Last Admin: 05/21/17 08:59 Dose: 80 mg Cefepime HCl 2 gm/ Premix 50 mls @ 100 mls/hr IV ONETIME ONE Stop: 05/20/17 20:28 Last Admin: 05/20/17 20:30 Dose: 100 mls/hr Vancomycin HCl 1 gm/Vancomycin HCl 500 mg/ Sodium Chloride 500 mls @ 333 mls/ hr IV Q24H [facility] Last Admin: 05/20/17 21:05 Dose: 333 mls/hr Sodium Chloride (Normal Saline) 500 mls @ 1,000 mls/hr IV ONETIME ONE Stop: 05/20/17 20:46 Last Admin: 05/20/17 20:30 Dose: 1,000 mls/hr Sodium Chloride (Normal Saline) 1,000 mls @ 100 mls/hr IV ASDIRECTED [facility] Last Admin: 05/21/17 00:20 Dose: 100 mls/hr Cefepime HCl 1 gm/ Premix 50 mls @ 100 mls/hr IV Q24H [facility] Piperacillin Sod/Tazobactam (Sod 4.5 gm/ Sodium Chloride) 100 mls @ 200 mls/hr IV ONETIME ONE Stop: 05/21/17 12:29 Last Admin: 05/21/17 12:00 Dose: 200 mls/hr Levothyroxine Sodium (Levothyroxine) 125 mcg PO ACBREAKFAST [facility] Last Admin: 05/21/17 07:03 Dose: 125 mcg Methylprednisolone Sodium Succinate (Solu-Medrol) 125 mg IVPUSH ONETIME ONE Stop: 05/20/17 20:19 Last Admin: 05/20/17 20:26 Dose: 125 mg Vancomycin HCl (Pharmacy To Dose - Vancomycin) 1 dose .XX ASDIRECTED [facility] - Exam Quality Assessment: Supplemental Oxygen, DVT Prophylaxis General: Alert, Oriented, Cooperative, No Acute Distress HEENT: Pupils Equal, EOMI, Mucous Membr. Moist/[place] Neck: Supple Lungs: Normal Respiratory Effort, Decreased Breath Sounds (bases), Rales (bases) , Wheezing (exp) Cardiovascular: Regular Rate, Regular Rhythm GI/Abdominal Exam: Normal Bowel Sounds, Soft, Non-Tender (Female) Exam: Deferred Extremities: Normal Inspection, No Pedal Edema, Normal Capillary Refill Peripheral Pulses: 1+: Dorsalis Pedis (L), Dorsalis Pedis (R) Neurological: No New Focal Deficit Psy/Mental Status: Alert, Normal Affect, Normal Mood - Problem List & Annotations (1) Hypoxia SNOMED Code(s): 514851999 Code(s): R09.02 - HYPOXEMIA Status: Acute Priority: High Current Visit : Yes (2) CHF exacerbation SNOMED Code(s): 96391412 Code(s): I50.9 - HEART FAILURE, UNSPECIFIED Status: Acute Priority: High Current Visit: Yes Qualifiers: Congestive heart failure type: unspecified congestive heart failure type Qualified Code(s): I50.9 - Heart failure, unspecified (3) Pneumonia SNOMED Code(s): 090806891 Code(s): J18.9 - PNEUMONIA, UNSPECIFIED ORGANISM Status: Acute Priority: High Current Visit: Yes Qualifiers: Pneumonia type: due to unspecified organism Laterality: bilateral Lung location: lower lobe of lung Qualified Code(s): J18.9 - Pneumonia, unspecified organism (4) Rhinovirus infection SNOMED Code(s): 39103951 Code(s): B34.8 - OTHER VIRAL INFECTIONS OF UNSPECIFIED SITE Status: Acute Priority: High Current Visit: Yes (5) COPD exacerbation SNOMED Code(s): 659154571707242 Code(s): J44.1 - CHRONIC OBSTRUCTIVE PULMONARY DISEASE W (ACUTE) EXACERBATION Status: Acute Priority: High Current Visit: Yes (6) Chronic renal insufficiency SNOMED Code(s): 380353633 Code(s): N18.9 - CHRONIC KIDNEY DISEASE, UNSPECIFIED Status: Chronic Priority: High Current Visit: Yes Qualifiers: Chronic kidney disease stage: stage 4 (severe) Qualified Code(s): N18.4 - Chronic kidney disease, stage 4 (severe) (7) Macrocytosis SNOMED Code(s): 293519005 Code(s): D75.89 - OTHER SPECIFIED DISEASES OF BLOOD AND BLOOD-FORMING ORGANS Status: Chronic Priority: Medium Current Visit: Yes (8) Troponin I above reference range SNOMED Code(s): 247686691 Code(s): R74.8 - ABNORMAL LEVELS OF OTHER SERUM ENZYMES Status: Acute Current Visit: Yes - Problem List Review Problem List Initiated/Reviewed/Updated: Yes - My Orders Last 24 Hours: My Active Orders 05/21/17 08:40 STREP PNEUMONIAE ANTIGEN [MREF] Routine 05/21/17 09:00 Allopurinol [Zyloprim] 200 mg PO DAILY Diltiazem IR [Cardizem] 60 mg PO BID Famotidine [Pepcid] 20 mg PO DAILY Lisinopril [Prinivil] 20 mg PO DAILY Tiotropium [Spiriva HandiHaler] 18 mcg INH DAILY 05/21/17 10:00 Albuterol/Ipratropium [DuoNeb 3.0-0.5 MG/3 ML] 3 ml NEB QIDRT 05/21/17 12:27 diphenhydrAMINE [Benadryl] 50 mg IVPUSH Q4H PRN 05/21/17 12:45 Levofloxacin/Dextrose 5%-Water [Levaquin in D5W 250 MG/50 ML] 250 mg Premix Bag 1 bag IV Q24H 05/22/17 00:00 Piperacillin/Tazobactam [Zosyn] 4.5 gm Sodium Chloride 0.9% [Normal Saline] 100 ml IV Q12H 05/22/17 06:00 Levothyroxine [Synthroid] 100 mcg PO ACBREAKFAST 05/22/17 07:00 Furosemide [Lasix] 40 mg PO BIDDIURETIC 05/22/17 08:31 FE, TIBC, TRANSFERRIN, FE SAT [CHEM] Routine FOLIC ACID [CHEM] Routine VITAMIN B12 [CHEM] Routine 05/22/17 08:32 Furosemide [Lasix] 20 mg IVPUSH NOW ONE 05/22/17 09:00 Spironolactone [Aldactone] 25 mg PO DAILY 05/23/17 05:00 BASIC METABOLIC PANEL,BMP [CHEM] DAILY C-REACTIVE PROTEIN [CHEM] DAILY MAGNESIUM [CHEM] DAILY 05/23/17 05:11 Chest 2V [CR] AM 05/23/17 06:45 CBC WITH AUTO DIFF [HEME] DAILY 05/24/17 05:00 BASIC METABOLIC PANEL,BMP [CHEM] DAILY C-REACTIVE PROTEIN [CHEM] DAILY MAGNESIUM [CHEM] DAILY 05/24/17 06:45 CBC WITH AUTO DIFF [HEME] DAILY 05/25/17 06:45 CBC WITH AUTO DIFF [HEME] DAILY 05/26/17 06:45 CBC WITH AUTO DIFF [HEME] DAILY - Plan Plan:: I/P: Hypoxia- Etiology is multifactorial and noted below -Still on 3L/NC at 93% this morning Pneumonia- etiology likely rhinovirus/enterovirus returned from resp viral panel -Cont on IV abx for now -Aggressive RT/pulmonary toilet--nebs, IS/FV -mucinex -Repeat CXR tomorrow to follow; consider Chest CT -Negative flu a/b, negative mycoplasma, negative s.pneumo, negative BC -Follow am labs CHF exacerbation -Echo obtained yesterday- awaiting results -Diurese, with caution due to CKD -Consider ACEI but will hold due to renal status -Added spironolactone this morning -BNP repeat this morning is pending -[employer] for CHF education CKD- stage 4 -Does follow Therapeutic Recreation Assistant, Dr. Perez -Follow and trend renal function -Caution with diuresis as above -monitor electrolytes, K+ and Mg daily COPD exacerbation -IV solumedrol---consider taper in next 1-2 days -RT and pulmonary care as above Troponin elevated -Negative or normal CKMB -Likely demand due to CHF/hypoxia and CKD -Recheck is trending down, no further need to follow Hypothyroidism -TSH is low at 0.2, may be contributing to CHF exacerbation -Decrease levothyroxine dose from 125mcg to 100mcg -Recommend recheck TSH in 3 months with PCP Other: GI prophylax DVT prophylax PT/OT CM/SW for assist with DC planning--Plan DC in next 48 hours pending therapy recommendations, likely back to [place]. PCP is Dr. Rosas with [facility] in [place]. Patient is DNR/DNI code status.
[2017-05-22] MEDS: Famotidine 20 MG Tab PO SCH (09:22)
[2017-05-22] MEDS: Diltiazem IR 60 MG Tab PO SCH ×2 (09:22→22:34)
[2017-05-22] MEDS: Lisinopril 20 MG Tab PO SCH (09:22)
[2017-05-22] MEDS: Spironolactone 25 MG Tab PO SCH (09:22)
[2017-05-22] MEDS: Enoxaparin 30 MG/0.3 ML Syringe SUBCUT SCH (09:23)
[2017-05-22] MEDS: Allopurinol 100 MG Tab PO SCH (09:23)
[2017-05-22] MEDS: Tiotropium Inhaler 18 MCG Inhalation Powder Cap Kit of 5 INH SCH (09:26)
[2017-05-22] MEDS: Levofloxacin/Dextrose 5%-Water 250 MG in Premix Bag 1 BAG IV SCH (12:46)
[2017-05-22] MEDS: Metoprolol Succinate 25 MG Tab.ER PO SCH (12:47)
[2017-05-22] MEDS: Folic Acid 1 MG Tab PO SCH (12:47)
[2017-05-22] MEDS ORDERED: Sennosides 8.6 MG Tab PO PRN (12:52)
[2017-05-22] MEDS ORDERED: methylPREDNISolone Sodium Succinate 125 MG/2 ML SDV IVPUSH SCH (13:00)
[2017-05-22] MEDS: methylPREDNISolone Sodium Succinate 40 MG/1 ML SDV IVPUSH SCH (13:50)
[2017-05-23] MEDS: methylPREDNISolone Sodium Succinate 40 MG/1 ML SDV IVPUSH SCH ×2 (02:27→14:52)
[2017-05-23] MEDS: Albuterol/Ipratropium 3.0-0.5 MG/3 ML Neb Soln NEB SCH ×4 (05:39→20:55)
[2017-05-23] MEDS: Formoterol/Mometasone 200-5 MCG 8.8 GM Inhaler IH SCH ×2 (05:40→20:54)
[2017-05-23] MEDS: Furosemide 40 MG Tab PO SCH (06:15)
[2017-05-23] MEDS: Levothyroxine 100 MCG Tab PO SCH (06:15)
[2017-05-23] MEDS: Spironolactone 25 MG Tab PO SCH (08:11)
[2017-05-23] MEDS: Allopurinol 100 MG Tab PO SCH (08:11)
[2017-05-23] MEDS: Folic Acid 1 MG Tab PO SCH (08:11)
[2017-05-23] MEDS: Diltiazem IR 60 MG Tab PO SCH ×2 (08:11→22:23)
[2017-05-23] MEDS: Enoxaparin 30 MG/0.3 ML Syringe SUBCUT SCH (08:11)
[2017-05-23] MEDS: Famotidine 20 MG Tab PO SCH (08:11)
[2017-05-23] MEDS: Metoprolol Succinate 25 MG Tab.ER PO SCH (08:12)
[2017-05-23] MEDS ORDERED: Lisinopril 10 MG Tab PO SCH (09:00)
[2017-05-23] MEDS: Tiotropium Inhaler 18 MCG Inhalation Powder Cap Kit of 5 INH SCH (09:36)
[2017-05-23] MEDS ORDERED: Magnesium Hydroxide 400 MG/5 ML Susp 30 ML Cup PO ONE (10:00)
[2017-05-23] MEDS ORDERED: hydrALAZINE 20 MG/ML SDV IVPUSH PRN (11:23)
[2017-05-23] MEDS: Levofloxacin/Dextrose 5%-Water 250 MG in Premix Bag 1 BAG IV SCH (12:27)
--- NOTE | 2017-05-23 13:14 | PCM.PN ---
- General Info Date of Service: 05/23/17 Functional Status: Reports: Tolerating Diet, Ambulating, Urinating - Review of Systems General: Reports: Weakness HEENT: Reports: No Symptoms Pulmonary: Reports: No Symptoms Cardiovascular: Reports: No Symptoms Gastrointestinal: Reports: No Symptoms Genitourinary: Reports: No Symptoms Musculoskeletal: Reports: No Symptoms Skin: Reports: No Symptoms Neurological: Reports: No Symptoms Psychiatric: Reports: No Symptoms - Patient Data Vitals - Most Recent: Last Vital Signs Temp 36.7 C 05/23/17 07:51 Pulse 79 05/23/17 09:37 Resp 18 05/23/17 09:37 BP 100/53 L 05/23/17 08:12 Pulse Ox 95 05/23/17 09:37 Weight - Most Recent: 84.187 kg I&O - Last 24 Hours: Intake & Output 05/22/17 05/23/17 05/23/17 22:59 06:59 14:59 Intake Total 950 1000 180 Output Total 500 1625 Balance 450 -625 180 Lab Results Last 24 Hours: Laboratory Results - last 24 hr 05/23/17 05/23/17 Range/Units 05:35 05:35 WBC 13.07 H (3.98-10.04) K/mm3 RBC 3.11 L (3.98-5.22) M/mm3 Hgb 10.5 L (11.2-15.7) gm/L Hct 31.9 L (34.1-44.9) % MCV 102.6 H (79.4-94.8) fl MCH 33.8 H (25.6-32.2) pg MCHC 32.9 (32.2-35.5) g/dl RDW Std Deviation 63.8 H (36.4-46.3) fL Plt Count 353 (182-369) K/mm3 MPV 9.8 (9.4-12.3) fl Neut % (Auto) 93.6 H (34.0-71.1) % Lymph % (Auto) 2.4 L (19.3-51.7) % Beckham % (Auto) 3.5 L (4.7-12.5) % Eos % (Auto) 0 L (0.7-5.8) Baso % (Auto) 0.1 (0.1-1.2) % Neut # (Auto) 12.23 H (1.56-6.13) K/mm3 Lymph # (Auto) 0.32 L (1.18-3.74) K/mm3 Beckham # (Auto) 0.46 H (0.24-0.36) K/mm3 Eos # (Auto) 0.00 L (0.04-0.36) K/mm3 Baso # (Auto) 0.01 (0.01-0.08) K/mm3 Manual Slide Review Abnormal smear Sodium 140 (136-145) mEq/L Potassium 3.6 (3.5-5.1) mEq/L Chloride 104 (98-107) mEq/L Carbon Dioxide 24 (21-32) mEq/L Anion Gap 15.6 H (5-15) BUN 65 H (7-18) mg/dL Creatinine 2.5 H (0.55-1.02) mg/dL Est Cr Clr Drug Dosing 13.18 mL/min Estimated GFR (MDRD) 18 (>60) mL/min BUN/Creatinine Ratio 26.0 H (14-18) Glucose 178 H (83-115) mg/dL Calcium 9.6 (8.5-10.1) mg/dL Magnesium 1.9 (1.8-2.4) mg/dl C-Reactive Protein 2.5 H* (<1.0) mg/dL [place] Results Last 24 Hours: Microbiology 05/21/17 08:40 Streptococcus pneumoniae Antigen (M - Final Urine Med Orders - Current: Current Medications Acetaminophen (Tylenol) 650 mg PO Q6H PRN PRN Reason: Fever Albuterol (Proventil Neb Soln) 2.5 mg NEB Q4HRRT PRN PRN Reason: sob/wheeze/coughing Albuterol/Ipratropium (Duoneb 3.0-0.5 Mg/3 Ml) 3 ml NEB QIDRT [facility] Last Admin: 05/23/17 09:36 Dose: 3 ml Allopurinol (Zyloprim) 200 mg PO DAILY [facility] Last Admin: 05/23/17 08:11 Dose: 200 mg Diltiazem HCl (Cardizem) 60 mg PO BID [facility] Last Admin: 05/23/17 08:11 Dose: 60 mg Diphenhydramine HCl (Benadryl) 50 mg IVPUSH Q4H PRN PRN Reason: rash/itching/allergy Enoxaparin Sodium (Lovenox) 30 mg SUBCUT DAILY [facility] Last Admin: 05/23/17 08:11 Dose: 30 mg Famotidine (Pepcid) 20 mg PO DAILY [facility] Last Admin: 05/23/17 08:11 Dose: 20 mg Folic Acid (Folic Acid) 1 mg PO DAILY [facility] Last Admin: 05/23/17 08:11 Dose: 1 mg Furosemide (Lasix) 40 mg PO BIDDIURETIC [facility] Last Admin: 05/23/17 06:15 Dose: 40 mg Hydralazine HCl (Apresoline) 10 mg IVPUSH Q6H PRN PRN Reason: Hypertension Levofloxacin/Dextrose 250 mg/ (Premix) 50 mls @ 50 mls/hr IV Q24H [facility] Last Admin: 05/23/17 12:27 Dose: 50 mls/hr Levothyroxine Sodium (Synthroid) 100 mcg PO ACBREAKFAST [facility] Last Admin: 05/23/17 06:15 Dose: 100 mcg Lisinopril (Prinivil) 10 mg PO DAILY [facility] Last Admin: 05/23/17 08:12 Dose: 10 mg Methylprednisolone Sodium Succinate (Solu-Medrol) 40 mg IVPUSH Q12H [facility] Metoprolol Succinate (Toprol Xl) 25 mg PO DAILY [facility] Last Admin: 05/23/17 08:12 Dose: 25 mg Mometasone Furoate/Formoterol Fumar (Dulera 200-5 Mcg) 0 puff IH BIDRT [facility] Last Admin: 05/23/17 05:40 Dose: 2 puff Senna (Senna) 8.6 mg PO BID PRN PRN Reason: Constipation Last Admin: 05/22/17 13:50 Dose: 8.6 mg Sodium Chloride (Saline Flush) 10 ml FLUSH ASDIRECTED PRN PRN Reason: Keep Vein Open Last Admin: 05/20/17 19:58 Dose: 10 ml Spironolactone (Aldactone) 25 mg PO DAILY [facility] Last Admin: 05/23/17 08:11 Dose: 25 mg Temazepam (Restoril) 7.5 mg PO BEDTIME PRN PRN Reason: Sleep Tiotropium Franklin (Spiriva Handihaler) 18 mcg INH DAILY [facility] Last Admin: 05/23/17 09:36 Dose: 1 cap Discontinued Medications Albuterol/Ipratropium (Duoneb 3.0-0.5 Mg/3 Ml) 3 ml NEB ONETIME ONE Stop: 05/20/17 19:49 Last Admin: 05/20/17 20:34 Dose: 3 ml Albuterol/Ipratropium (Duoneb 3.0-0.5 Mg/3 Ml) 3 ml NEB Q6HRRT PRN PRN Reason: Shortness of Breath Bumetanide (Bumex) 1 mg IVPUSH ONETIME ONE Stop: 05/21/17 12:37 Last Admin: 05/21/17 13:24 Dose: Not Given Bumetanide (Bumex) 1 mg PO ONETIME ONE Stop: 05/21/17 12:41 Last Admin: 05/21/17 13:19 Dose: 1 mg Furosemide (Lasix) 80 mg PO DAILY [facility] Last Admin: 05/21/17 08:59 Dose: 80 mg Furosemide (Lasix) 20 mg IVPUSH NOW ONE Stop: 05/22/17 08:33 Last Admin: 05/22/17 09:23 Dose: 20 mg Cefepime HCl 2 gm/ Premix 50 mls @ 100 mls/hr IV ONETIME ONE Stop: 05/20/17 20:28 Last Admin: 05/20/17 20:30 Dose: 100 mls/hr Vancomycin HCl 1 gm/Vancomycin HCl 500 mg/ Sodium Chloride 500 mls @ 333 mls/ hr IV Q24H [facility] Last Admin: 05/20/17 21:05 Dose: 333 mls/hr Sodium Chloride (Normal Saline) 500 mls @ 1,000 mls/hr IV ONETIME ONE Stop: 05/20/17 20:46 Last Admin: 05/20/17 20:30 Dose: 1,000 mls/hr Sodium Chloride (Normal Saline) 1,000 mls @ 100 mls/hr IV ASDIRECTED [facility] Last Admin: 05/21/17 00:20 Dose: 100 mls/hr Cefepime HCl 1 gm/ Premix 50 mls @ 100 mls/hr IV Q24H [facility] Piperacillin Sod/Tazobactam (Sod 4.5 gm/ Sodium Chloride) 100 mls @ 25 mls/hr IV Q12H [facility] Last Admin: 05/22/17 23:36 Dose: 25 mls/hr Piperacillin Sod/Tazobactam (Sod 4.5 gm/ Sodium Chloride) 100 mls @ 200 mls/hr IV ONETIME ONE Stop: 05/21/17 12:29 Last Admin: 05/21/17 12:00 Dose: 200 mls/hr Levothyroxine Sodium (Levothyroxine) 125 mcg PO ACBREAKFAST [facility] Last Admin: 05/21/17 07:03 Dose: 125 mcg Lisinopril (Prinivil) 20 mg PO DAILY [facility] Last Admin: 05/22/17 09:22 Dose: 20 mg Magnesium Hydroxide (Milk Of Magnesia) 30 ml PO ONETIME ONE Stop: 05/23/17 10:01 Last Admin: 05/23/17 11:06 Dose: 30 ml Methylprednisolone Sodium Succinate (Solu-Medrol) 125 mg IVPUSH ONETIME ONE Stop: 05/20/17 20:19 Last Admin: 05/20/17 20:26 Dose: 125 mg Methylprednisolone Sodium Succinate (Solu-Medrol) 125 mg IVPUSH Q6H [facility] Last Admin: 05/22/17 05:30 Dose: 125 mg Methylprednisolone Sodium Succinate (Solu-Medrol) 125 mg IVPUSH Q8H [facility] Methylprednisolone Sodium Succinate (Solu-Medrol) 80 mg IVPUSH Q12H [facility] Last Admin: 05/23/17 02:27 Dose: 80 mg Vancomycin HCl (Pharmacy To Dose - Vancomycin) 1 dose .XX ASDIRECTED [facility] - Exam Quality Assessment: DVT Prophylaxis General: Alert, Oriented, Cooperative, No Acute Distress HEENT: Pupils Equal, Pupils Reactive, EOMI Neck: Supple, Trachea Midline, No JVD Lungs: Normal Respiratory Effort Cardiovascular: Regular Rate GI/Abdominal Exam: Normal Bowel Sounds, Soft, Non-Tender, No Organomegaly, No Distention (Female) Exam: Deferred Back Exam: Normal Inspection Extremities: Normal Inspection, Pedal Edema (trace) Skin: Warm Neurological: No New Focal Deficit, Normal Gait, Normal Speech Psy/Mental Status: Alert, Normal Affect, Normal Mood - Problem List Review Problem List Initiated/Reviewed/Updated: Yes - My Orders Last 24 Hours: My Active Orders 05/23/17 11:23 hydrALAZINE [Apresoline] 10 mg IVPUSH Q6H PRN 05/23/17 14:00 methylPREDNISolone Sod Succ [Solu-MEDROL] 40 mg IVPUSH Q12H - Plan Plan:: I/P: Hypoxia- Etiology is multifactorial and noted below -On 3-4/NC -- keep sats >90%; is on chronic O2 at home of 2L/NC Pneumonia- Etiology uncertain at this time. -Cont on IV abx for now -Aggressive RT/pulmonary toilet--nebs, IS/FV -CXR with likely LLL pna -Negative flu a/b, will check mycoplasma, strep pneumo, respiratory viral panel. -BC obtained in ED, normal lactic acid -Follow am labs CHF exacerbation -Echo ordered; no old one on file. -Diurese, with caution due to CKD -BNP -Civil Drafting Technician for CHF education CKD- stage 4 -Does follow Mixing Picker Tender, Dr. Perez -Follow and trend renal function -Caution with diuresis as above -monitor electrolytes, K+ and Mg daily COPD exacerbation -IV solumedrol-->titrate off -RT and pulmonary care as above Troponin elevated -Trend and follow. -Likely demand due to CHF/hypoxia and CKD Hypothyroidism -Check TSH Elevated blood sugar -Check A1C Other: GI prophylax DVT prophylax Civil Drafting Technician consult PT/OT- ambulate in hallways if able CM/SW for assist with DC planning--Plan DC 3-4 days after appropriate tx for PNA , diuresis and further evaluation. PCP is Dr. Rosas with [facility] in [place]. Patient is DNR/DNI code status. DC 24-48 hours.
[2017-05-23] MEDS: Sodium Chloride 0.9% 10 ML Syringe FLUSH PRN (14:49)
[2017-05-24] MEDS: methylPREDNISolone Sodium Succinate 40 MG/1 ML SDV IVPUSH SCH ×2 (02:42→13:44)
[2017-05-24] MEDS: Levothyroxine 100 MCG Tab PO SCH (06:16)
[2017-05-24] MEDS: Formoterol/Mometasone 200-5 MCG 8.8 GM Inhaler IH SCH (06:30)
[2017-05-24] MEDS: Albuterol/Ipratropium 3.0-0.5 MG/3 ML Neb Soln NEB SCH ×2 (06:30→09:33)
[2017-05-24] MEDS: Tiotropium Inhaler 18 MCG Inhalation Powder Cap Kit of 5 INH SCH (09:33)
[2017-05-24] MEDS: Metoprolol Succinate 25 MG Tab.ER PO SCH (10:22)
[2017-05-24] MEDS: Folic Acid 1 MG Tab PO SCH (10:22)
[2017-05-24] MEDS: Allopurinol 100 MG Tab PO SCH (10:22)
[2017-05-24] MEDS: Famotidine 20 MG Tab PO SCH (10:23)
[2017-05-24] MEDS: Enoxaparin 30 MG/0.3 ML Syringe SUBCUT SCH (10:23)
[2017-05-24] MEDS: Spironolactone 25 MG Tab PO SCH (10:23)
[2017-05-24] MEDS: Diltiazem IR 60 MG Tab PO SCH (10:23)
[2017-05-24] MEDS: Levofloxacin/Dextrose 5%-Water 250 MG in Premix Bag 1 BAG IV SCH (12:45)
--- NOTE | 2017-05-24 13:08 | PCM.DCSUM1 ---
Discharge Summary - Hospital Course Free Text/Narrative:: Analy is an 82yo female, appears younger than her age who presented to ED with worsening SOB over the past few weeks. She was seen in the clinic and given rx for PO antibiotics. She has been more fatigued, coughing with thick sputum the past few days, minimal appetite and worsened SOB/BLUNT symptoms the past 2 days. She denies f/c/s. She was seen again at the clinic today, found to be hypoxic and sent to ED for further evaluation. ED evaluation: is with WBC elevated at 14.77, macrocytosis but normal H&H, platelets elevated at 405. Metabolic panel with creatinine of 2.4, BUN of 42, normal electrolytes and magnesium. Glucose is elevated at 162. Normal liver enzymes. Lactic acid normal at 1.3. Troponin is slightly elevated at 0.084, BNP significantly elevated at 26,969 and lipase normal at 223. CXR shows interstitial markings increased and likely LLL pneumonia. She has PMH of prior lung cancer s/p lobectomy years ago, COPD, CKD, hx of RA, takes MTX on Mondays, hypothyroid, CKD stage 4 at baseline, follows Import Manager Dr. Perez. Hospitalist service is consulted for admission for CHF exacerbation, PNA and elevated troponin. PCP is Dr. Rosas with [facility] in [place]. She is DNR/DNI. She improved back to baseline while in our care. She was treated aggressively by RT with duonebs, Spiriva, dulera, IS, and Acapella. Flu A/B was negative, as was mycopasma, and strep pneumo. Viral respiratory panel was positive for rhinovirus/enterovirus. Blood cultures were negative. UA was negative. Her oxygen was weaned down and she is now on her normal 2 L. Echo was obtained on . It was interpreted as: 1. Normal left ventricular systolic function. 2. The calculated left ventricular ejection fraction by Salomon's MOD, from apical four-chamber view is a proximally 63%. 3. Pseudo-normal (grade 2) pattern of left ventricular diastolic filling. 4. Normal right ventricular systolic function. 5. Mild to moderate aortic valve regurgitation. 6. Right ventricular systolic pressure is normal. 7. Aortic root is\are normal. Chest x-ray showed chronic changes in the right lung base. Increased lung markings the left chest was noted as an interval change from prior study possibly due to asymmetric pulmonary vascular congestion. Troponin was slightly elevated however CK-MB was normal. Troponin trended down on repeat. Metoprolol was added for heart rate control. Lisinopril was decreased due to hypotension. Lasix was stopped and spironolactone was started in an attempt to better diuresis the patient. Her kidney function is poor. She is aware of this. She sees Dr. Perez for this. I discussed salt restrictions. I also discussed fluid restrictions although I'm concerned for her to be too dry given her poor kidney function. Ultimately this would be something to discuss with her peoplesoft business analyst and primary care provider. She will be discharged home today. I' ve given her a steroid stepdown and have adjusted other medications as noted. She is to follow-up with her primary care provider, Dr. Rosas, in 7-10 days. Her folate level was found to be low here and she should be monitored via lab work in the future. I personally met face to face with oLre to discuss her hospital discharge instructions and continued plan of care. At this time she would benefit from home health and PT/OT due to the listed diagnoses. She becomes short of breath easily and has difficulty with ambulation and transportation concerns. She is chronically on oxygen at home. She has some difficulty with ADLs. She will be homebound due to these conditions as well. After discharge her pcp, Dr. Rosas, can monitor need for assistance and adjust care plan accordingly. - Discharge Data Discharge Date: 05/24/17 (Admit date 05/20/17) Discharge Disposition: Home, W Home Health Agency 06 Condition: Good - Discharge Diagnosis/Problem(s) (1) CHF exacerbation SNOMED Code(s): 87984548 ICD Code: I50.9 - HEART FAILURE, UNSPECIFIED Status: Acute Priority: High Current Visit: Yes Qualifiers: Congestive heart failure type: unspecified congestive heart failure type Qualified Code(s): I50.9 - Heart failure, unspecified (2) COPD exacerbation SNOMED Code(s): 617545649010001 ICD Code: J44.1 - CHRONIC OBSTRUCTIVE PULMONARY DISEASE W (ACUTE) EXACERBATION Status: Acute Priority: High Current Visit: Yes (3) Hypoxia SNOMED Code(s): 332715491 ICD Code: R09.02 - HYPOXEMIA Status: Acute Priority: High Current Visit : Yes (4) Pneumonia SNOMED Code(s): 644499174 ICD Code: J18.9 - PNEUMONIA, UNSPECIFIED ORGANISM Status: Acute Priority : High Current Visit: Yes Qualifiers: Pneumonia type: due to unspecified organism Laterality: bilateral Lung location: lower lobe of lung Qualified Code(s): J18.9 - Pneumonia, unspecified organism (5) Rhinovirus infection SNOMED Code(s): 82514681 ICD Code: B34.8 - OTHER VIRAL INFECTIONS OF UNSPECIFIED SITE Status: Acute Priority: High Current Visit: Yes (6) Troponin I above reference range SNOMED Code(s): 254530483 ICD Code: R74.8 - ABNORMAL LEVELS OF OTHER SERUM ENZYMES Status: Acute Priority: Low Current Visit: Yes (7) Chronic renal insufficiency SNOMED Code(s): 661837827 ICD Code: N18.9 - CHRONIC KIDNEY DISEASE, UNSPECIFIED Status: Chronic Priority: High Current Visit: Yes Qualifiers: Chronic kidney disease stage: stage 4 (severe) Qualified Code(s): N18.4 - Chronic kidney disease, stage 4 (severe) (8) Macrocytosis SNOMED Code(s): 366745793 ICD Code: D75.89 - OTHER SPECIFIED DISEASES OF BLOOD AND BLOOD-FORMING ORGANS Status: Chronic Priority: Medium Current Visit: Yes - Patient Summary/Data Consults: Consultations 05/20/17 23:26 OT Evaluation and Treatment [CONS] Routine PT Evaluation and Treatment [CONS] Routine 05/21/17 06:46 Consult to Basket Assembler [CONS] Routine - Patient Instructions Diet: Heart Healthy Diet, Low Sodium Fluid Restriction: talk with your peoplesoft business analyst for his recommendation on fluid intake Activity: As Tolerated Driving: Do Not Drive Showering/Bathing: May Shower Notify Provider of: Fever, Increased Pain, Nausea and/or Vomiting (worsening shortness of breath, chest pain.) - Discharge Plan Prescriptions/Med Rec: Folic Acid 1 mg PO DAILY #20 tablet Levofloxacin [Levaquin] 250 mg PO Q24H #8 tablet Levothyroxine [Synthroid] 100 mcg PO ACBREAKFAST #20 tablet Lisinopril [Prinivil] 10 mg PO DAILY #20 tablet Metoprolol Succinate [Toprol XL] 25 mg PO DAILY #20 tab.er Prednisone [IJD: Prednisone] See Taper PO DAILY #30 tab Spironolactone [Aldactone] 25 mg PO DAILY #20 tablet Tiotropium [Spiriva HandiHaler] 18 mcg INH DAILY #20 cap Home Medications: Home Meds Albuterol [Take Home: Albuterol 6.7 GM, 1 INH Pack] 1 dose INH ASDIRECTED PRN [History] Albuterol/Ipratropium [DuoNeb 3.0-0.5 MG/3 ML] 1 dose INH ASDIRECTED PRN [History] Allopurinol [Zyloprim] 200 mg PO DAILY 05/20/17 [History] Diltiazem HCl [Cardizem] 60 mg PO BID 05/20/17 [History] Fluticasone/Salmeterol [Advair 250-50 Diskus] 1 puff INH ASDIRECTED PRN [History] Methotrexate 2 tab PO WEEKLY 05/20/17 [History] Folic Acid 1 mg PO DAILY #20 tablet 05/24/17 [Rx] Levofloxacin [Levaquin] 250 mg PO Q24H #8 tablet 05/24/17 [Rx] Levothyroxine [Synthroid] 100 mcg PO ACBREAKFAST #20 tablet 05/24/17 [Rx] Lisinopril [Prinivil] 10 mg PO DAILY #20 tablet 05/24/17 [Rx] Metoprolol Succinate [Toprol XL] 25 mg PO DAILY #20 tab.er 05/24/17 [Rx] Prednisone [IJD: Prednisone] See Taper PO DAILY #30 tab 05/24/17 [Rx] Spironolactone [Aldactone] 25 mg PO DAILY #20 tablet 05/24/17 [Rx] Tiotropium [Spiriva HandiHaler] 18 mcg INH DAILY #20 cap 05/24/17 [Rx] Patient Handouts: Chronic Obstructive Pulmonary Disease Exacerbation, Easy-to- Read, Hypoxemia, Chronic Obstructive Pulmonary Disease, [id number], Community- Acquired Pneumonia, Adult, [id number] Forms: ED Department Discharge Referrals: Eduardo Rosas MD [Primary Care Provider] - (Please see Dr. Rosas at [facility] on Saturday06/03/17 at 4:00 PM.) - Discharge Summary/Plan Comment DC Time >30 min.: Yes (45 minutes ) - General Info Functional Status: Reports: Pain Controlled, Tolerating Diet, Ambulating, Urinating, Incentive Spirometry. Denies: New Symptoms - Review of Systems General: Reports: No Symptoms. Denies: Fever, Weakness, Fatigue, Malaise, Chills, Night Sweats HEENT: Reports: No Symptoms Pulmonary: Reports: Shortness of Breath (baseline ), Cough (improved ). Denies : Pleuritic Chest Pain, Wheezing Cardiovascular: Reports: Dyspnea on Exertion (baseline ). Denies: Chest Pain, Palpitations, Orthopnea, PND, Edema Gastrointestinal: Reports: No Symptoms Genitourinary: Reports: No Symptoms Musculoskeletal: Reports: No Symptoms Skin: Reports: No Symptoms Neurological: Reports: No Symptoms Psychiatric: Reports: No Symptoms - Patient Data Vitals - Most Recent: Last Vital Signs Temp 97.9 F 05/24/17 02:51 Pulse 81 05/24/17 10:25 Resp 18 05/24/17 10:25 BP 115/72 05/24/17 10:25 Pulse Ox 92 L 05/24/17 10:25 Weight - Most Recent: 185 lb 3.2 oz I&O - Last 24 hours: Intake & Output 05/23/17 05/24/17 05/24/17 22:59 06:59 14:59 Intake Total 210 500 360 Output Total 900 600 Balance -690 -100 360 Lab Results - Last 24 hrs: Laboratory Results - last 24 hr 05/24/17 05/24/17 05/24/17 Range/Units 06:20 06:20 10:55 WBC 11.10 H (3.98-10.04) K/mm3 RBC 3.06 L (3.98-5.22) M/mm3 Hgb 10.3 L (11.2-15.7) gm/L Hct 31.2 L (34.1-44.9) % MCV 102.0 H (79.4-94.8) fl MCH 33.7 H (25.6-32.2) pg MCHC 33.0 (32.2-35.5) g/dl RDW Std Deviation 63.4 H (36.4-46.3) fL Plt Count 329 (182-369) K/mm3 MPV 10.0 (9.4-12.3) fl Neut % (Auto) 95.4 H (34.0-71.1) % Lymph % (Auto) 3.5 L (19.3-51.7) % [place] % (Auto) 0.7 L (4.7-12.5) % Eos % (Auto) 0 L (0.7-5.8) Baso % (Auto) 0.1 (0.1-1.2) % Neut # (Auto) 10.59 H (1.56-6.13) K/mm3 Lymph # (Auto) 0.39 L (1.18-3.74) K/mm3 [place] # (Auto) 0.08 L (0.24-0.36) K/mm3 Eos # (Auto) 0.00 L (0.04-0.36) K/mm3 Baso # (Auto) 0.01 (0.01-0.08) K/mm3 Manual Slide Review Abnormal smear Sodium 142 (136-145) mEq/L Potassium 3.8 (3.5-5.1) mEq/L Chloride 105 (98-107) mEq/L Carbon Dioxide 26 (21-32) mEq/L Anion Gap 14.8 (5-15) BUN 76 H (7-18) mg/dL Creatinine 2.7 H (0.55-1.02) mg/dL Est Cr Clr Drug Dosing 12.20 mL/min Estimated GFR (MDRD) 17 (>60) mL/min BUN/Creatinine Ratio 28.1 H (14-18) Glucose 195 H (83-115) mg/dL Calcium 9.9 (8.5-10.1) mg/dL Magnesium 2.1 (1.8-2.4) mg/dl C-Reactive Protein 1.5 H* (<1.0) mg/dL NT-Pro-B Natriuret Pep 73329 H (0-450) pg/mL Med Orders - Current: Current Medications Acetaminophen (Tylenol) 650 mg PO Q6H PRN PRN Reason: Fever Albuterol (Proventil Neb Soln) 2.5 mg NEB Q4HRRT PRN PRN Reason: sob/wheeze/coughing Albuterol/Ipratropium (Duoneb 3.0-0.5 Mg/3 Ml) 3 ml NEB QIDRT [facility] Last Admin: 05/24/17 09:33 Dose: 3 ml Allopurinol (Zyloprim) 200 mg PO DAILY [facility] Last Admin: 05/24/17 10:22 Dose: 200 mg Diltiazem HCl (Cardizem) 60 mg PO BID [facility] Last Admin: 05/24/17 10:23 Dose: 60 mg Diphenhydramine HCl (Benadryl) 50 mg IVPUSH Q4H PRN PRN Reason: rash/itching/allergy Enoxaparin Sodium (Lovenox) 30 mg SUBCUT DAILY [facility] Last Admin: 05/24/17 10:23 Dose: 30 mg Famotidine (Pepcid) 20 mg PO DAILY [facility] Last Admin: 05/24/17 10:23 Dose: 20 mg Folic Acid (Folic Acid) 1 mg PO DAILY [facility] Last Admin: 05/24/17 10:22 Dose: 1 mg Furosemide (Lasix) 40 mg PO BIDDIURETIC [facility] Last Admin: 05/23/17 06:15 Dose: 40 mg Hydralazine HCl (Apresoline) 10 mg IVPUSH Q6H PRN PRN Reason: Hypertension Levofloxacin/Dextrose 250 mg/ (Premix) 50 mls @ 50 mls/hr IV Q24H [facility] Last Admin: 05/24/17 12:45 Dose: 50 mls/hr Levothyroxine Sodium (Synthroid) 100 mcg PO ACBREAKFAST [facility] Last Admin: 05/24/17 06:16 Dose: 100 mcg Lisinopril (Prinivil) 10 mg PO DAILY [facility] Last Admin: 05/23/17 08:12 Dose: 10 mg Methylprednisolone Sodium Succinate (Solu-Medrol) 40 mg IVPUSH Q12H [facility] Last Admin: 05/24/17 02:42 Dose: 40 mg Metoprolol Succinate (Toprol Xl) 25 mg PO DAILY [facility] Last Admin: 05/24/17 10:22 Dose: 25 mg Mometasone Furoate/Formoterol Fumar (Dulera 200-5 Mcg) 0 puff IH BIDRT [facility] Last Admin: 05/24/17 06:30 Dose: 2 puff Senna (Senna) 8.6 mg PO BID PRN PRN Reason: Constipation Last Admin: 05/22/17 13:50 Dose: 8.6 mg Sodium Chloride (Saline Flush) 10 ml FLUSH ASDIRECTED PRN PRN Reason: Keep Vein Open Last Admin: 05/23/17 14:49 Dose: 10 ml Spironolactone (Aldactone) 25 mg PO DAILY [facility] Last Admin: 05/24/17 10:23 Dose: 25 mg Temazepam (Restoril) 7.5 mg PO BEDTIME PRN PRN Reason: Sleep Tiotropium [place] (Spiriva Handihaler) 18 mcg INH DAILY [facility] Last Admin: 05/24/17 09:33 Dose: 1 cap Discontinued Medications Albuterol/Ipratropium (Duoneb 3.0-0.5 Mg/3 Ml) 3 ml NEB ONETIME ONE Stop: 05/20/17 19:49 Last Admin: 05/20/17 20:34 Dose: 3 ml Albuterol/Ipratropium (Duoneb 3.0-0.5 Mg/3 Ml) 3 ml NEB Q6HRRT PRN PRN Reason: Shortness of Breath Bumetanide (Bumex) 1 mg IVPUSH ONETIME ONE Stop: 05/21/17 12:37 Last Admin: 05/21/17 13:24 Dose: Not Given Bumetanide (Bumex) 1 mg PO ONETIME ONE Stop: 05/21/17 12:41 Last Admin: 05/21/17 13:19 Dose: 1 mg Furosemide (Lasix) 80 mg PO DAILY [facility] Last Admin: 05/21/17 08:59 Dose: 80 mg Furosemide (Lasix) 20 mg IVPUSH NOW ONE Stop: 05/22/17 08:33 Last Admin: 05/22/17 09:23 Dose: 20 mg Cefepime HCl 2 gm/ Premix 50 mls @ 100 mls/hr IV ONETIME ONE Stop: 05/20/17 20:28 Last Admin: 05/20/17 20:30 Dose: 100 mls/hr Vancomycin HCl 1 gm/Vancomycin HCl 500 mg/ Sodium Chloride 500 mls @ 333 mls/ hr IV Q24H [facility] Last Admin: 05/20/17 21:05 Dose: 333 mls/hr Sodium Chloride (Normal Saline) 500 mls @ 1,000 mls/hr IV ONETIME ONE Stop: 05/20/17 20:46 Last Admin: 05/20/17 20:30 Dose: 1,000 mls/hr Sodium Chloride (Normal Saline) 1,000 mls @ 100 mls/hr IV ASDIRECTED [facility] Last Admin: 05/21/17 00:20 Dose: 100 mls/hr Cefepime HCl 1 gm/ Premix 50 mls @ 100 mls/hr IV Q24H [facility] Piperacillin Sod/Tazobactam (Sod 4.5 gm/ Sodium Chloride) 100 mls @ 25 mls/hr IV Q12H [facility] Last Admin: 05/22/17 23:36 Dose: 25 mls/hr Piperacillin Sod/Tazobactam (Sod 4.5 gm/ Sodium Chloride) 100 mls @ 200 mls/hr IV ONETIME ONE Stop: 05/21/17 12:29 Last Admin: 05/21/17 12:00 Dose: 200 mls/hr Levothyroxine Sodium (Levothyroxine) 125 mcg PO ACBREAKFAST [facility] Last Admin: 05/21/17 07:03 Dose: 125 mcg Lisinopril (Prinivil) 20 mg PO DAILY [facility] Last Admin: 05/22/17 09:22 Dose: 20 mg Magnesium Hydroxide (Milk Of Magnesia) 30 ml PO ONETIME ONE Stop: 05/23/17 10:01 Last Admin: 05/23/17 11:06 Dose: 30 ml Methylprednisolone Sodium Succinate (Solu-Medrol) 125 mg IVPUSH ONETIME ONE Stop: 05/20/17 20:19 Last Admin: 05/20/17 20:26 Dose: 125 mg Methylprednisolone Sodium Succinate (Solu-Medrol) 125 mg IVPUSH Q6H [facility] Last Admin: 05/22/17 05:30 Dose: 125 mg Methylprednisolone Sodium Succinate (Solu-Medrol) 125 mg IVPUSH Q8H [facility] Methylprednisolone Sodium Succinate (Solu-Medrol) 80 mg IVPUSH Q12H [facility] Last Admin: 05/23/17 02:27 Dose: 80 mg Vancomycin HCl (Pharmacy To Dose - Vancomycin) 1 dose .XX ASDIRECTED [facility] - Exam Quality Assessment: Reports: Supplemental Oxygen (2L), DVT Prophylaxis General: Reports: Alert, Oriented, Cooperative, No Acute Distress HEENT: Reports: Pupils Equal, Pupils Reactive, EOMI, Mucous Membr. Moist/[place] Neck: Reports: Supple, Trachea Midline, No JVD, No Thyromegaly Lungs: Reports: Normal Respiratory Effort, Decreased Breath Sounds, Wheezing ( mild and improved expiratory ) Cardiovascular: Reports: Regular Rate, Regular Rhythm GI/Abdominal Exam: Normal Bowel Sounds, Soft, Non-Tender, No Organomegaly, No Distention, No Abnormal Bruit, No Mass, Pelvis Stable (Female) Exam: Deferred Rectal (Female) Exam: Deferred Back Exam: Reports: Normal Inspection, Full Range of Motion Extremities: Normal Inspection, Normal Range of Motion, Non-Tender, No Pedal Edema, Normal Capillary Refill Skin: Reports: Warm, Dry, Intact Neurological: Reports: No New Focal Deficit Psy/Mental Status: Reports: Alert, Normal Affect, Normal Mood *Q Meaningful Use (DIS) - VTE *Q VTE Criteria *Q: - Stroke *Q Stroke Criteria *Q: - AMI *Q AMI Criteria *Q:
--- NOTE | 2017-05-27 16:02 | CR ---
Chest: Two views of the chest were obtained. Comparison: Prior chest x-ray of 05/21/17. Increased density is noted within the right lung base which is stable from prior chest x-ray. Central lung markings are increased which appear to be stable from prior x-ray. Heart size is not enlarged. Surgical clips are seen within the right chest. Impression: 1. Chronic change within the right lung base most likely residual from prior right lung surgery. 2. Stable increased lung markings from prior exam. Diagnostic code #3 I agree with preliminary report issued by [facility], please see above ([facility] report finalized on 05/23/17, 3:06 PM Central Time)
== END 2017-05-24 14:57 | disposition home health service (06) | DRG 291 ==
LOC: JD.ED 19:22 → JD.MS 21:43
PROVIDERS: ADMIT Internal Medicine Cardiovascular Disease; ATTEND Internal Medicine Cardiovascular Disease
DX: I13.0 Hypertensive heart and chronic kidney disease with heart failure and stage 1 through stage 4 chronic kidney disease, or unspecified chronic kidney disease (principal); J18.9 Pneumonia, unspecified organism; J44.0 Chronic obstructive pulmonary disease with (acute) lower respiratory infection; N18.4 Chronic kidney disease, stage 4 (severe); J44.1 Chronic obstructive pulmonary disease with (acute) exacerbation; N18.9 Chronic kidney disease, unspecified; I50.9 Heart failure, unspecified; R09.02 Hypoxemia; R74.8 Abnormal levels of other serum enzymes; E03.9 Hypothyroidism, unspecified; Z66 Do not resuscitate; Z79.899 Other long term (current) drug therapy; E78.00 Pure hypercholesterolemia, unspecified; E66.9 Obesity, unspecified; Z68.30 Body mass index [BMI] 30.0-30.9, adult; Z85.118 Personal history of other malignant neoplasm of bronchus and lung; L40.9 Psoriasis, unspecified; Z88.1 Allergy status to other antibiotic agents; Z87.891 Personal history of nicotine dependence; B34.8 Other viral infections of unspecified site; D75.89 Other specified diseases of blood and blood-forming organs; R73.9 Hyperglycemia, unspecified; M06.9 Rheumatoid arthritis, unspecified; R00.0 Tachycardia, unspecified; D72.829 Elevated white blood cell count, unspecified
CPT/HCPCS: 71010; 96365; 96367; 94640; 99285; 93005; 96375; 85025; 36415; 80053; 83735; 84484; 83880; 83690; 83605; 87804 ×2; 87040 ×2; J2930; J7040 ×2; J7050; J3370 ×2; J0692; 71020; 71020-26; 80048; 81001; 82310; 82553; 82607; 82746; 83036; 83540; 83970; 84443; 84466; 86140; 86738; 87486; 87581; 87633; 87798; 87899; 93306; 94664; 94667; 94668; 94760; 97110-GO; 97116-GP; 97162-GP; 97166-GO; 97530-GO; 97530-GP; A9270; A9270-GY; J1650; J1956; J2543; J2920; J7030

== ENCOUNTER 2017-06-19 20:41 | Inpatient (IN) | payer MEDICARE, BC ==
--- NOTE | 2017-06-19 21:43 | EDM.PDOC ---
ED HPI GENERAL MEDICAL PROBLEM - General Chief Complaint: Cardiovascular Problem Stated Complaint: high potassium Time Seen by Provider: 06/19/17 21:25 Source of Information: Reports: Patient History Limitations: Reports: No Limitations - History of Present Illness INITIAL COMMENTS - FREE TEXT/NARRATIVE: An 82-year-old female presents for evaluation and treatment of high potassium. Patient reports that she had labs drawn for her primary care provider earlier today. She was contacted by him and instructed to come to the ER for further management and care. She denies any current pain. No chest pain, headache, nausea, vomiting, fevers, abdominal pain or worsening shortness of breath. Reports she chronically has dyspnea on exertion which is no worse than normal. She normally is on 2 L oxygen via nasal cannula, she increases this to 3 L with activity. Patient was recently hospitalized for pneumonia, COPD exacerbation hypoxemia. She was discharged home with steroids. She has been on prednisone since her hospitalization. Dr. Rossa called over earlier. Reports that potassium is elevated at 6.3. Her creatinine is also elevated at 4.6. While in the hospital her creatinine has been in the low to upper 2. Reports her diuretics have been changed recently. Patient is a DNR, DNI. - Related Data Allergies Allergy/AdvReac Type Severity Reaction Status Date / Time levofloxacin [From Levaquin] Allergy Hives Verified 06/19/17 21:55 Home Meds: Home Meds Albuterol [Take Home: Albuterol 6.7 GM, 1 INH Pack] 1 dose INH ASDIRECTED PRN [History] Albuterol/Ipratropium [DuoNeb 3.0-0.5 MG/3 ML] 1 dose INH ASDIRECTED PRN [History] Allopurinol [Zyloprim] 200 mg PO DAILY 05/20/17 [History] Diltiazem HCl [Cardizem] 60 mg PO BID 05/20/17 [History] Fluticasone/Salmeterol [Advair 250-50 Diskus] 1 puff INH ASDIRECTED PRN [History] Methotrexate 2 tab PO WEEKLY 05/20/17 [History] Folic Acid 1 mg PO DAILY #20 tablet 05/24/17 [Rx] Levothyroxine [Synthroid] 100 mcg PO ACBREAKFAST #20 tablet 05/24/17 [Rx] Lisinopril [Prinivil] 10 mg PO DAILY #20 tablet 05/24/17 [Rx] Metoprolol Succinate [Toprol XL] 25 mg PO DAILY #20 tab.er 05/24/17 [Rx] Tiotropium [Spiriva HandiHaler] 18 mcg INH DAILY #20 cap 05/24/17 [Rx] Cinnamon Bark [Cinnamon] 500 mg PO DAILY 06/19/17 [History] Diclofenac Cream. 06/19/17 [History] Furosemide [Lasix] 80 mg PO DAILY 06/19/17 [History] Garlic 1 tab PO DAILY 06/19/17 [History] Mometasone/Formoterol [Dulera 100-5 MCG] 2 puff INH DAILY 06/19/17 [History] Multivitamin [Multivitamins] 1 tab PO DAILY 06/19/17 [History] Niacin 1,000 mg PO 06/19/17 [History] predniSONE [predniSONE] 20 mg PO DAILY 06/19/17 [History] traMADol [Ultram] 50 mg PO BID PRN 06/19/17 [History] Past Medical History HEENT History: Reports: Impaired Vision Other HEENT History: glasses Cardiovascular History: Reports: High Cholesterol, Hypertension Respiratory History: Reports: COPD Genitourinary History: Reports: Other (See Below) Other Genitourinary History: low kidney function [employer] History: Reports: Other OB/BYN History: 5 kids Musculoskeletal History: Reports: Arthritis Endocrine/Metabolic History: Reports: Hypothyroidism, Obesity/BMI 30+ Oncologic (Cancer) History: Reports: Lung Dermatologic History: Reports: Psoriasis - Past Surgical History HEENT Surgical History: Reports: Adenoidectomy, Cataract Surgery, Tonsillectomy Other Respiratory Surgeries/Procedures: hx lung CA - Patient stated she had 2 of the 3 lobes on the right side removed. Use oxygen at home 1-3L/NC. GI Surgical History: Reports: Cholecystectomy Oncologic Surgical History: Reports: Lobectomy Social & Family History - Family History Family Medical History: Noncontributory - Tobacco Use Smoking Status *Q: Former Smoker Years of Tobacco use: 40 Packs/Tins Daily: 1 Used Tobacco, but Quit: Yes Month Tobacco Last Used: 1993 - Caffeine Use Caffeine Use: Reports: Coffee Other Caffeine Use: couple cups in the morning - Recreational Drug Use Recreational Drug Use: No ED ROS GENERAL - Review of Systems Review Of Systems: See Below Constitutional: Denies: Fever Respiratory: Reports: Shortness of Breath (chronic) Cardiovascular: Reports: Dyspnea on Exertion. Denies: Chest Pain GI/Abdominal: Denies: Abdominal Pain, Nausea, Vomiting Neurological: Denies: Headache ED EXAM, GENERAL - Physical Exam Exam: See Below Exam Limited By: No Limitations General Appearance: Alert, WD/WN, No Apparent Distress Ears: Normal External Exam Nose: Normal Inspection Throat/Mouth: Normal Inspection, Normal Lips, No Airway Compromise Respiratory/Chest: No Respiratory Distress, Lungs Clear, Normal Breath Sounds Cardiovascular: Normal Peripheral Pulses, Regular Rate, Rhythm, No Edema, No Murmur GI/Abdominal: Soft, Non-Tender Neurological: Alert, Oriented, Normal Cognition Psychiatric: Normal Affect, Normal Mood Skin Exam: Warm, Dry, Normal Color EKG INTERPRETATION EKG Date: 06/19/17 Time: 21:45 Rhythm: NSR Rate (Beats/Min): 110 [place]: RAD-Right [place] Deviation P-Wave: Present QRS: Normal ST-T: Normal QT: Normal EKG Interpretation Comments: Sinus tachycardia at 110 bpm. Consider left atrial enlargement. Borderline RAD - 84 degrees. Decreased voltage in limb leads. Late "R" wave transition. Q wave VL. T wave inversion II, III and AVF. Reviewed by myself and Dr. Julio. Course - Vital Signs Last Recorded V/S: Last Vital Signs Temp 36.9 C 06/19/17 23:53 Pulse 120 H 06/19/17 23:53 Resp 20 06/19/17 23:53 BP 107/72 06/19/17 23:53 Pulse Ox 96 06/19/17 23:53 - Orders/Labs/Meds Orders: Active Orders 24 hr Category Date Time Status EKG Documentation Completion [RC] ASDIRECTED Care 06/19/17 21:39 Active RT Aerosol Therapy [RC] ASDIRECTED Care 06/19/17 22:54 Active Chest 1V Frontal [CR] Stat Exams 06/19/17 21:47 Taken Sodium Chloride 0.9% [Saline Flush] Med 06/19/17 21:47 Active 10 ml FLUSH ASDIRECTED PRN Peripheral IV Insertion Adult [OM.PC] Routine Oth 06/19/17 21:47 Ordered EKG 12 Lead [EK] Stat Ther 06/19/17 21:39 Ordered Medication Orders Acetaminophen (Tylenol) 650 mg PO Q4H PRN PRN Reason: Pain (Mild 1-3)/fever Hydrocodone Bitart/Acetaminophen ([place] 325-5 Mg) 1 tab PO Q4H PRN PRN Reason: Pain (moderate 4-6) Albuterol/Ipratropium (Duoneb 3.0-0.5 Mg/3 Ml) ml INH ASDIRECTED PRN PRN Reason: Shortness of Breath Albuterol/Ipratropium (Duoneb 3.0-0.5 Mg/3 Ml) 3 ml NEB Q4H PRN PRN Reason: Shortness Of Breath/wheezing Bisacodyl (Dulcolax) 5 mg PO DAILY PRN PRN Reason: Constipation Diltiazem HCl (Cardizem) 60 mg PO BID DANIEL Docusate Sodium (Colace) 100 mg PO BID PRN PRN Reason: Constipation Folic Acid (Folic Acid) 1 mg PO DAILY [facility] Hydralazine HCl (Apresoline) 10 mg IVPUSH Q4H PRN PRN Reason: Hypertension Promethazine HCl 6.25 mg/ (Sodium Chloride) 50.25 mls @ 100 mls/hr IV Q6H PRN PRN Reason: Nausea/Vomiting Sodium Chloride (Normal Saline) 1,000 mls @ 50 mls/hr IV ASDIRECTED [facility] Levothyroxine Sodium (Synthroid) 100 mcg PO ACBREAKFAST DANIEL Lorazepam (Ativan) 0.25 mg IV Q6H PRN PRN Reason: Anxiety Magnesium Hydroxide (Milk Of Magnesia) 30 ml PO Q12H PRN PRN Reason: Constipation Magnesium Sulfate (Pharmacy To Dose - Magnesium Replacement) 1 dose .XX ASDIRECTED [facility] Metoprolol Succinate (Toprol Xl) 25 mg PO DAILY [facility] Metoprolol Tartrate (Lopressor) 5 mg IVPUSH Q4H PRN PRN Reason: Tachycardia Mometasone Furoate/Formoterol Fumar (Dulera 100-5 Mcg) 2 puff IH DAILY [facility] Non-Formulary Medication (Albuterol) 1 dose INH ASDIRECTED PRN PRN Reason: Shortness of Breath Non-Formulary Medication (Fluticasone/Salmeterol) 1 puff INH ASDIRECTED PRN PRN Reason: Shortness of Breath Non-Formulary Medication (Multivitamin [Multivitamins]) 1 tab PO DAILY [facility] Ondansetron HCl (Zofran) 4 mg IV Q6H PRN PRN Reason: Nausea/Vomiting Polyethylene Glycol (Miralax) 17 gm PO DAILY PRN PRN Reason: Constipation Potassium Chloride (Pharmacy To Dose - Potassium Replacement) 1 dose .XX ASDIRECTED [facility] Prednisone (Prednisone) 10 mg PO DAILY [facility] Senna/Docusate Sodium (Senna Plus) 1 tab PO BID PRN PRN Reason: Constipation Sodium Chloride (Saline Flush) 10 ml FLUSH ASDIRECTED PRN PRN Reason: Keep Vein Open Last Admin: 06/19/17 22:01 Dose: 10 ml Sodium Polystyrene Sulfonate (Kayexalate) 45 gm RECTAL NOW ONE Stop: 06/20/17 00:46 Temazepam (Restoril) 7.5 mg PO BEDTIME PRN PRN Reason: Sleep Tiotropium [place] (Spiriva Handihaler) 18 mcg INH DAILY [facility] Tramadol HCl (Ultram) 50 mg PO BID PRN PRN Reason: Pain Labs: Laboratory Tests 06/19/17 06/19/17 06/19/17 Range/Units 21:37 22:12 22:12 WBC 16.64 H (3.98-10.04) K/mm3 RBC 3.54 L (3.98-5.22) M/mm3 Hgb 12.2 (11.2-15.7) gm/L Hct 35.7 (34.1-44.9) % MCV 100.8 H (79.4-94.8) fl MCH 34.5 H (25.6-32.2) pg MCHC 34.2 (32.2-35.5) g/dl RDW Std Deviation 66.4 H (36.4-46.3) fL Plt Count 183 (182-369) K/mm3 MPV 10.9 (9.4-12.3) fl Neutrophils % (Manual) 92 H (40-60) % Band Neutrophils % 0 (0-10) % Lymphocytes % (Manual) 3 L (20-40) % Atypical Lymphs % 0 % Monocytes % (Manual) 5 (2-10) % Eosinophils % (Manual) 0 L (0.7-5.8) % Basophils % (Manual) 0 L (0.1-1.2) Toxic Granulation Few Platelet Estimate Adequate Poikilocytosis 1+ slight Anisocytosis 2+ moderate Macrocytosis 2+ moderate Ovalocytes 2+ moderate RBC Morph Comment Not Reportable Sodium 135 L (136-145) mEq/L Potassium 6.5 H* (3.5-5.1) mEq/L Chloride 104 (98-107) mEq/L Carbon Dioxide 19 L (21-32) mEq/L Anion Gap 18.5 H (5-15) BUN 109 H (7-18) mg/dL Creatinine 4.7 H (0.55-1.02) mg/dL Est Cr Clr Drug Dosing 7.01 mL/min Estimated GFR (MDRD) 9 (>60) mL/min BUN/Creatinine Ratio 23.2 H (14-18) Glucose 216 H (83-115) mg/dL Calcium 10.6 H (8.5-10.1) mg/dL Magnesium 1.9 (1.8-2.4) mg/dl Total Bilirubin 0.7 (0.2-1.0) mg/dL AST 22 (15-37) U/L ALT 34 (14-59) U/L Alkaline Phosphatase 58 (46-116) U/L CK-MB (CK-2) (0-3.6) ng/ml Troponin I 0.148 H* (0.00-0.056) ng/mL NT-Pro-B Natriuret Pep 6549 H (0-450) pg/mL Total Protein 6.2 L (6.4-8.2) g/dl Albumin 3.5 (3.4-5.0) g/dl Globulin 2.7 gm/dL Albumin/Globulin Ratio 1.3 (1-2) 06/19/17 Range/Units 22:12 WBC (3.98-10.04) K/mm3 RBC (3.98-5.22) M/mm3 Hgb (11.2-15.7) gm/L Hct (34.1-44.9) % MCV (79.4-94.8) fl MCH (25.6-32.2) pg MCHC (32.2-35.5) g/dl RDW Std Deviation (36.4-46.3) fL Plt Count (182-369) K/mm3 MPV (9.4-12.3) fl Neutrophils % (Manual) (40-60) % Band Neutrophils % (0-10) % Lymphocytes % (Manual) (20-40) % Atypical Lymphs % % Monocytes % (Manual) (2-10) % Eosinophils % (Manual) (0.7-5.8) % Basophils % (Manual) (0.1-1.2) Toxic Granulation Platelet Estimate Poikilocytosis Anisocytosis Macrocytosis Ovalocytes RBC Morph Comment Sodium (136-145) mEq/L Potassium (3.5-5.1) mEq/L Chloride (98-107) mEq/L Carbon Dioxide (21-32) mEq/L Anion Gap (5-15) BUN (7-18) mg/dL Creatinine (0.55-1.02) mg/dL Est Cr Clr Drug Dosing mL/min Estimated GFR (MDRD) (>60) mL/min BUN/Creatinine Ratio (14-18) Glucose (83-115) mg/dL Calcium (8.5-10.1) mg/dL Magnesium (1.8-2.4) mg/dl Total Bilirubin (0.2-1.0) mg/dL AST (15-37) U/L ALT (14-59) U/L Alkaline Phosphatase (46-116) U/L CK-MB (CK-2) 4.8 H (0-3.6) ng/ml Troponin I (0.00-0.056) ng/mL NT-Pro-B Natriuret Pep (0-450) pg/mL Total Protein (6.4-8.2) g/dl Albumin (3.4-5.0) g/dl Globulin gm/dL Albumin/Globulin Ratio (1-2) Meds: Medications Generic Name Dose Route Start Last Admin Trade Name Freq PRN Reason Stop Dose Admin Acetaminophen 650 mg 06/20/17 00:46 Tylenol PO Q4H PRN Pain (Mild 1-3)/fever Hydrocodone Bitart/Acetaminophen 1 tab 06/20/17 00:46 [place] 325-5 Mg PO Q4H PRN Pain (moderate 4-6) Albuterol/Ipratropium ml 06/20/17 00:42 Duoneb 3.0-0.5 Mg/3 Ml INH ASDIRECTED PRN Shortness of Breath Albuterol/Ipratropium 3 ml 12/21/17 00:46 Duoneb 3.0-0.5 Mg/3 Ml NEB Q4H PRN Shortness Of Breath/wheezing Bisacodyl 5 mg 06/20/17 00:46 Dulcolax PO DAILY PRN Constipation Diltiazem HCl 60 mg 06/20/17 09:00 Cardizem PO BID [facility] Docusate Sodium 100 mg 06/20/17 00:46 Colace PO BID PRN Constipation Folic Acid 1 mg 06/20/17 09:00 Folic Acid PO DAILY [facility] Hydralazine HCl 10 mg 06/20/17 00:44 Apresoline IVPUSH Q4H PRN Hypertension Promethazine HCl 6.25 mg/ 50.25 mls @ 100 mls/hr 06/20/17 00:46 Sodium Chloride IV Q6H PRN Nausea/Vomiting Sodium Chloride 1,000 mls @ 50 mls/hr 06/20/17 01:00 Normal Saline IV ASDIRECTED [facility] Levothyroxine Sodium 100 mcg 06/20/17 06:00 Synthroid PO ACBREAKFAST [facility] Lorazepam 0.25 mg 06/20/17 00:46 Ativan IV Q6H PRN Anxiety Magnesium Hydroxide 30 ml 06/20/17 00:46 Milk Of Magnesia PO Q12H PRN Constipation Magnesium Sulfate 1 dose 06/20/17 00:45 Pharmacy To Dose - Magnesium Replacement .XX ASDIRECTED [facility] Metoprolol Succinate 25 mg 06/20/17 09:00 Toprol Xl PO DAILY [facility] Metoprolol Tartrate 5 mg 06/20/17 00:44 Lopressor IVPUSH Q4H PRN Tachycardia Mometasone Furoate/Formoterol Fumar 2 puff 06/20/17 09:00 Dulera 100-5 Mcg IH DAILY [facility] Non-Formulary Medication 1 dose 06/20/17 00:42 Albuterol INH ASDIRECTED PRN Shortness of Breath Non-Formulary Medication 1 puff 06/20/17 00:42 Fluticasone/Salmeterol INH ASDIRECTED PRN Shortness of Breath Non-Formulary Medication 1 tab 06/20/17 09:00 Multivitamin [Multivitamins] PO DAILY [facility] Ondansetron HCl 4 mg 06/20/17 00:46 Zofran IV Q6H PRN Nausea/Vomiting Polyethylene Glycol 17 gm 06/20/17 00:46 Miralax PO DAILY PRN Constipation Potassium Chloride 1 dose 06/20/17 00:45 Pharmacy To Dose - Potassium Replacement .XX ASDIRECTED [facility] Prednisone 10 mg 06/20/17 09:00 Prednisone PO DAILY [facility] Senna/Docusate Sodium 1 tab 06/20/17 00:46 Senna Plus PO BID PRN Constipation Sodium Chloride 10 ml 06/19/17 21:47 06/19/17 22:01 Saline Flush FLUSH 10 ml ASDIRECTED PRN Administration Keep Vein Open Sodium Polystyrene Sulfonate 45 gm 06/20/17 00:45 Kayexalate RECTAL 06/20/17 00:46 NOW ONE Temazepam 7.5 mg 06/20/17 00:46 Restoril PO BEDTIME PRN Sleep Tiotropium [place] 18 mcg 06/20/17 09:00 Spiriva Handihaler INH DAILY [facility] Tramadol HCl 50 mg 06/20/17 00:42 Ultram PO BID PRN Pain Discontinued Medications Generic Name Dose Route Start Last Admin Trade Name Tuanq PRN Reason Stop Dose Admin Albuterol 2.5 mg 06/19/17 22:53 06/19/17 23:10 Proventil Neb Soln NEB 06/19/17 22:54 2.5 mg ONETIME ONE Administration Albuterol 2.5 mg 06/19/17 22:54 06/19/17 23:10 Proventil Neb Soln NEB 06/19/17 22:55 2.5 mg ONETIME ONE Administration Albuterol 2.5 mg 06/19/17 22:55 06/19/17 23:11 Proventil Neb Soln NEB 06/19/17 22:56 2.5 mg ONETIME ONE Administration Calcium Gluconate 1 gm 06/19/17 22:55 06/19/17 23:06 Calcium Gluconate IVPUSH 06/19/17 22:56 1 gm ONETIME ONE Administration Sodium Chloride 1,000 mls @ 999 mls/hr 06/19/17 21:55 06/19/17 22:02 Normal Saline IV 06/19/17 22:55 999 mls/hr ONETIME ONE Administration Sodium Bicarbonate 50 meq 06/19/17 22:57 06/19/17 23:06 Sodium Bicarbonate 8.4% IVPUSH 06/19/17 22:58 50 meq ONETIME ONE Administration Sodium Polystyrene Sulfonate 15 gm 06/19/17 22:56 06/19/17 23:06 Kayexalate PO 06/19/17 22:57 15 gm ONETIME ONE Administration - Radiology Interpretation Free Text/Narrative:: chest 1 view shows a right sided increased density. Stable from prior xrays. Likely chronic from previous lung surgery. - Re-Assessments/Exams Free Text/Narrative Re-Assessment/Exam: 06/20/17 00:12 Potassium returned elevated at 6.5 creatinine elevated at 4.7. Her troponin is elevated. previous labs show she chronically has an elevated troponin. Also likely related to her poor kidney function. Case discussed with Dr. Julio. Recommending giving 7.5 mg albuterol nebs, 1 amp of sodium bicarbonate, 1 g of calcium gluconate and 15 mg of Kayexalate. Discussed the case with Dr. Bryson, hospitalist applications consultant. Agrees to accept the patient. Patient will be sent to [facility] with telemetry. Departure - Departure Time of Disposition: 00:15 Disposition: Admitted As Inpatient 65 Condition: Serious Clinical Impression: Troponin I above reference range, Hyperkalemia Chronic renal insufficiency Qualifiers: Chronic kidney disease stage: stage 4 (severe) Qualified Code(s): N18.4 - Chronic kidney disease, stage 4 (severe) - My Orders Last 24 Hours: My Active Orders 06/19/17 21:39 EKG Documentation Completion [RC] ASDIRECTED EKG 12 Lead [EK] Stat 06/19/17 21:47 Chest 1V Frontal [CR] Stat Sodium Chloride 0.9% [Saline Flush] 10 ml FLUSH ASDIRECTED PRN Peripheral IV Insertion Adult [OM.PC] Routine 06/19/17 22:54 RT Aerosol Therapy [RC] ASDIRECTED - Assessment/Plan Last 24 Hours: My Active Orders 06/19/17 21:39 EKG Documentation Completion [RC] ASDIRECTED EKG 12 Lead [EK] Stat 06/19/17 21:47 Chest 1V Frontal [CR] Stat Sodium Chloride 0.9% [Saline Flush] 10 ml FLUSH ASDIRECTED PRN Peripheral IV Insertion Adult [OM.PC] Routine 06/19/17 22:54 RT Aerosol Therapy [RC] ASDIRECTED
[2017-06-19] MEDS ORDERED: Sodium Chloride 0.9% 10 ML Syringe FLUSH PRN (21:47)
[2017-06-19] MEDS ORDERED: Sodium Chloride 0.9% 1,000 ML IV ONE (21:55)
[2017-06-19] MEDS ORDERED: Albuterol 0.083% 2.5 MG/3 ML Neb Soln NEB ONE ×3 (22:53→22:55)
[2017-06-19] MEDS ORDERED: Calcium Gluconate 10% 1 GM/10 ML SDV IVPUSH ONE (22:55)
[2017-06-19] MEDS ORDERED: Sodium Polystyrene Sulfonate 15 GM/60 ML Susp 60 ML Bot PO ONE (22:56)
[2017-06-19] MEDS ORDERED: Sodium Bicarbonate 8.4% 50 MEQ/50 ML Syringe IVPUSH ONE (22:57)
--- NOTE | 2017-06-19 23:34 | PCM.HP ---
H&P History of Present Illness - General Date of Service: 06/19/17 Admit Problem/Dx: Hyperkalemia Source of Information: Patient, Old Records, Provider, RN Notes Reviewed History Limitations: Reports: No Limitations - History of Present Illness Initial Comments - Free Text/Narative: This is an 82-year-old pleasant white female with past medical history of impaired vision, hyperlipidemia, hypertension, COPD, chronic kidney disease stage 4, osteoarthritis, hypothyroidism, and psoriasis who was initially seen at her primary care's office and was found to have abnormal levels of potassium. She was referred to the emergency department for further management. She denies any symptoms except for dyspnea on exertion which is chronic to her. Her initial workup in the emergency department shows a CBC remarkable for WBC of 16.64, RBC of 3.54, MCV of 100.8, MCH of 34.5, RDW of 16 6.4, neutrophils of 92% and lymphocytes of 3%. Chemistry is remarkable for sodium of 135, potassium of 6.5, carbon dioxide of 19, anion gap of 18.5, BUN of 109, creatinine of 4.7, glucose of 216, calcium 10.6, CK-MB of 4.8, troponin of 0.148, proBNP of 60 549 , and total protein of 6.2. Patient is being admitted for medical management of hyperkalemia likely secondary to acute kidney injury. She is DNR/DNI. - Related Data Allergies/Adverse Reactions: Allergies Allergy/AdvReac Type Severity Reaction Status Date / Time levofloxacin [From Levaquin] Allergy Hives Verified 06/19/17 21:55 Home Medications: Home Meds Albuterol [Take Home: Albuterol 6.7 GM, 1 INH Pack] 1 dose INH ASDIRECTED PRN [History] Albuterol/Ipratropium [DuoNeb 3.0-0.5 MG/3 ML] 1 dose INH ASDIRECTED PRN [History] Allopurinol [Zyloprim] 200 mg PO DAILY 05/20/17 [History] Diltiazem HCl [Cardizem] 60 mg PO BID 05/20/17 [History] Fluticasone/Salmeterol [Advair 250-50 Diskus] 1 puff INH ASDIRECTED PRN [History] Methotrexate 2 tab PO WEEKLY 05/20/17 [History] Folic Acid 1 mg PO DAILY #20 tablet 05/24/17 [Rx] Levothyroxine [Synthroid] 100 mcg PO ACBREAKFAST #20 tablet 05/24/17 [Rx] Lisinopril [Prinivil] 10 mg PO DAILY #20 tablet 05/24/17 [Rx] Metoprolol Succinate [Toprol XL] 25 mg PO DAILY #20 tab.er 05/24/17 [Rx] Tiotropium [Spiriva HandiHaler] 18 mcg INH DAILY #20 cap 05/24/17 [Rx] Cinnamon Bark [Cinnamon] 500 mg PO DAILY 06/19/17 [History] Furosemide [Lasix] 80 mg PO DAILY 06/19/17 [History] Garlic 1 tab PO DAILY 06/19/17 [History] Mometasone/Formoterol [Dulera 100-5 MCG] 2 puff INH DAILY 06/19/17 [History] Multivitamin [Multivitamins] 1 tab PO DAILY 06/19/17 [History] predniSONE [predniSONE] 20 mg PO DAILY 06/19/17 [History] traMADol [Ultram] 50 mg PO BID PRN 06/19/17 [History] Past Medical History HEENT History: Reports: Impaired Vision Other HEENT History: glasses Cardiovascular History: Reports: High Cholesterol, Hypertension Respiratory History: Reports: COPD Genitourinary History: Reports: Other (See Below) Other Genitourinary History: low kidney function [employer] History: Reports: Other OB/BYN History: 5 kids Musculoskeletal History: Reports: Arthritis Endocrine/Metabolic History: Reports: Hypothyroidism, Obesity/BMI 30+ Oncologic (Cancer) History: Reports: Lung Dermatologic History: Reports: Psoriasis - Past Surgical History HEENT Surgical History: Reports: Adenoidectomy, Cataract Surgery, Tonsillectomy Other Respiratory Surgeries/Procedures: hx lung CA - Patient stated she had 2 of the 3 lobes on the right side removed. Use oxygen at home 1-3L/NC. GI Surgical History: Reports: Cholecystectomy Oncologic Surgical History: Reports: Lobectomy Social & Family History - Family History Family Medical History: Noncontributory - Tobacco Use Smoking Status *Q: Former Smoker Years of Tobacco use: 40 Packs/Tins Daily: 1 Used Tobacco, but Quit: Yes Month Tobacco Last Used: 1993 - Caffeine Use Caffeine Use: Reports: Coffee Other Caffeine Use: couple cups in the morning - Recreational Drug Use Recreational Drug Use: No H&P Review of Systems - Review of Systems: Review Of Systems: See Below General: Denies: Fever, Chills, Malaise, Weakness, Fatigue HEENT: Reports: No Symptoms Pulmonary: Reports: Shortness of Breath Cardiovascular: Reports: Dyspnea on Exertion. Denies: Chest Pain, Palpitations , Lightheadedness Gastrointestinal: Denies: Abdominal Pain, Constipation, Diarrhea, Decreased Appetite, Nausea, Vomiting Genitourinary: Reports: No Symptoms Musculoskeletal: Reports: No Symptoms Skin: Denies: Cyanosis, Mottled, Pallor, Diaphoresis, Pruritis, Rash, Erythema Psychiatric: Denies: Depression, Anxiety, Agitation, Hallucinations Neurological: Denies: Confusion, Difficulty Walking, Weakness, Gait Disturbance Hematologic/Lymphatic: Reports: No Symptoms Immunologic: Reports: No Symptoms Exam - Exam Exam: See Below - Vital Signs Vital Signs: Last Vital Signs Temp 36.3 C 06/19/17 21:01 Pulse 120 H 06/19/17 21:01 Resp 27 H 06/19/17 21:01 BP 122/78 06/19/17 21:01 Pulse Ox 94 L 06/19/17 23:11 Weight: 75.296 kg - Exam General: Alert, Oriented, Cooperative, Mild Distress HEENT: Conjunctiva Clear, EACs Clear, EOMI, Hearing Intact, Mucosa Moist & [place] , Nares Patent, Normal Nasal Septum, Posterior Pharynx Clear, Pupils Equal, Pupils Reactive Neck: Supple, Trachea Midline Lungs: Normal Respiratory Effort, Wheezing Cardiovascular: Regular Rhythm, Tachycardia GI/Abdominal Exam: Normal Bowel Sounds, Soft, Non-Tender, No Distention, No Abnormal Bruit, No Mass, Pelvis Stable (Female) Exam: Deferred Rectal (Female) Exam: Deferred Back Exam: Normal Inspection, Decreased Range of Motion Extremities: Normal Inspection, Normal Range of Motion, Non-Tender, No Pedal Edema, Normal Capillary Refill Peripheral Pulses: 2+: Posterior Tibial (L), Posterior Tibial (R), Dorsalis Pedis (L), Dorsalis Pedis (R) Skin: Warm, Dry, Intact Neuro Extensive - Mental Status: Oriented x3, Normal Cognition, Memory Intact Neuro Extensive - Motor, Sensory, Reflexes: CN II-XII Intact, Normal Gait Psychiatric: Alert, Normal Affect, Normal Mood - Patient Data Lab Results Last 24 hrs: Laboratory Results - last 24 hr 06/19/17 06/19/17 06/19/17 Range/Units 21:37 22:12 22:12 WBC 16.64 H (3.98-10.04) K/mm3 RBC 3.54 L (3.98-5.22) M/mm3 Hgb 12.2 (11.2-15.7) gm/L Hct 35.7 (34.1-44.9) % MCV 100.8 H (79.4-94.8) fl MCH 34.5 H (25.6-32.2) pg MCHC 34.2 (32.2-35.5) g/dl RDW Std Deviation 66.4 H (36.4-46.3) fL Plt Count 183 (182-369) K/mm3 MPV 10.9 (9.4-12.3) fl Neutrophils % (Manual) 92 H (40-60) % Band Neutrophils % 0 (0-10) % Lymphocytes % (Manual) 3 L (20-40) % Atypical Lymphs % 0 % Monocytes % (Manual) 5 (2-10) % Eosinophils % (Manual) 0 L (0.7-5.8) % Basophils % (Manual) 0 L (0.1-1.2) Toxic Granulation Few Platelet Estimate Adequate Poikilocytosis 1+ slight Anisocytosis 2+ moderate Macrocytosis 2+ moderate Ovalocytes 2+ moderate RBC Morph Comment Not Reportable Sodium 135 L (136-145) mEq/L Potassium 6.5 H* (3.5-5.1) mEq/L Chloride 104 (98-107) mEq/L Carbon Dioxide 19 L (21-32) mEq/L Anion Gap 18.5 H (5-15) BUN 109 H (7-18) mg/dL Creatinine 4.7 H (0.55-1.02) mg/dL Est Cr Clr Drug Dosing 7.01 mL/min Estimated GFR (MDRD) 9 (>60) mL/min BUN/Creatinine Ratio 23.2 H (14-18) Glucose 216 H (83-115) mg/dL Calcium 10.6 H (8.5-10.1) mg/dL Magnesium 1.9 (1.8-2.4) mg/dl Total Bilirubin 0.7 (0.2-1.0) mg/dL AST 22 (15-37) U/L ALT 34 (14-59) U/L Alkaline Phosphatase 58 (46-116) U/L Troponin I 0.148 H* (0.00-0.056) ng/mL NT-Pro-B Natriuret Pep 6549 H (0-450) pg/mL Total Protein 6.2 L (6.4-8.2) g/dl Albumin 3.5 (3.4-5.0) g/dl Globulin 2.7 gm/dL Albumin/Globulin Ratio 1.3 (1-2) Result Diagrams: 06/20/17 06:25 06/20/17 06:25 *Q Meaningful Use (ADM) - VTE *Q VTE Criteria *Q: - Stroke *Q Stroke Criteria *Q: - AMI *Q AMI Criteria *Q: Problem List Initiated/Reviewed/Updated: Yes Orders Last 24hrs: Active Orders 24 hr Category Date Time Status EKG Documentation Completion [RC] ASDIRECTED Care 06/19/17 21:39 Active Peripheral IV Care [RC] . DIRECTED Care 06/19/17 21:48 Active RT Aerosol Therapy [RC] ASDIRECTED Care 06/19/17 22:54 Active RT Aerosol Therapy [RC] ASDIRECTED Care 06/19/17 22:54 Active RT Aerosol Therapy [RC] ASDIRECTED Care 06/19/17 22:55 Active Chest 1V Frontal [CR] Stat Exams 06/19/17 21:47 Taken CKMB [CHEM] Stat Lab 06/19/17 23:25 Ordered Sodium Chloride 0.9% [Saline Flush] Med 06/19/17 21:47 Active 10 ml FLUSH ASDIRECTED PRN Peripheral IV Insertion Adult [OM.PC] Routine Oth 06/19/17 21:47 Ordered EKG 12 Lead [EK] Stat Ther 06/19/17 21:39 Ordered Medication Orders Sodium Chloride (Saline Flush) 10 ml FLUSH ASDIRECTED PRN PRN Reason: Keep Vein Open Last Admin: 06/19/17 22:01 Dose: 10 ml Assessment/Plan Comment:: Assessment/Plan: Acute: Hyperkalemia - K 6.5 - Likely 2/2 MIMI - Received NaHCO3, Albuterol, Ca+ Gluconate and Kayexalate in ED - Telemetry, additional kayexalate - Monitor MIMI on CKD Stage 4 - Baseline Cr is 2.2-2.7; 4.7 on admission - eGFR is 9; Stage 5 at this point - Abnormal e-lytes: CO2 19, AG 18.5, BUN 109, Ca 10.6, Na 135 - Gentle hydration - Renal U/S in AM r/o Obstructive Uropathy Leukocytosis - She is on oral Prednison 20 mg po daily for Psoriasis; will dose down to 10 mg po daily - Monitor Probable ACS - CKMB x1 4.8 and Troponin 0.148- this could be false due to MIMI - CE x2 and repeat EKG in AM - Recommend medical management only since she is DNR/DNI Chronic: HTN HLD COPD CKD Stage 4 OA Hypothyroidism Psoriasis Plan: Admit to Med-Surg floor with Telemetry Routine AM labs Hold Allopurinol, MTX, Lisinopril and Lasix IV gentle hydration PT/OT consult SW/CM for d/c planning Code status: DNR/DNI
[2017-06-20] MEDS ORDERED: Albuterol/Ipratropium 3.0-0.5 MG/3 ML Neb Soln INH PRN (00:42)
[2017-06-20] MEDS ORDERED: Albuterol 6.7 GM Inhaler INH PRN (00:42)
[2017-06-20] MEDS ORDERED: Non-Formulary Medication 1 Each (Fluticasone/Salmeterol 1 PUFF) INH PRN (00:42)
[2017-06-20] MEDS ORDERED: traMADol 50 MG Tab PO PRN (00:42)
[2017-06-20] MEDS ORDERED: hydrALAZINE 20 MG/ML SDV IVPUSH PRN (00:44)
[2017-06-20] MEDS ORDERED: Sodium Polystyrene Sulfonate 15 GM/60 ML Susp 60 ML Bot RECTAL ONE (00:45)
[2017-06-20] MEDS ORDERED: Acetaminophen/HYDROcodone 325-5 MG Tab PO PRN (00:46)
[2017-06-20] MEDS ORDERED: Acetaminophen 325 MG Tab PO PRN (00:46)
[2017-06-20] MEDS ORDERED: Ondansetron 4 MG/2 ML SDV IV PRN (00:46)
[2017-06-20] MEDS ORDERED: Temazepam 7.5 MG Cap PO PRN (00:46)
[2017-06-20] MEDS ORDERED: Magnesium Hydroxide 400 MG/5 ML Susp 30 ML Cup PO PRN (00:46)
[2017-06-20] MEDS ORDERED: LORazepam 2 MG/ML MDV IV PRN (00:46)
[2017-06-20] MEDS ORDERED: Albuterol/Ipratropium 3.0-0.5 MG/3 ML Neb Soln NEB PRN (00:46)
[2017-06-20] MEDS ORDERED: Polyethylene Glycol 3350 Powder 17 GM Packet PO PRN (00:46)
[2017-06-20] MEDS ORDERED: Bisacodyl 5 MG Tab PO PRN (00:46)
[2017-06-20] MEDS ORDERED: Promethazine 6.25 MG in Sodium Chloride 0.9% 50 ML IV PRN (00:46)
[2017-06-20] MEDS ORDERED: Sodium Chloride 0.9% 1,000 ML IV SCH ×2 (01:00→06:00)
[2017-06-20] MEDS: Metoprolol Tartrate 5 MG/5 ML SDV IVPUSH PRN ×2 (01:23→10:27)
[2017-06-20] MEDS: Levothyroxine 100 MCG Tab PO SCH (06:31)
[2017-06-20] MEDS: Multivitamins,Therapeutic Tab PO SCH (08:51)
[2017-06-20] MEDS: Diltiazem IR 60 MG Tab PO SCH ×2 (08:53→21:46)
[2017-06-20] MEDS: Folic Acid 1 MG Tab PO SCH (08:54)
[2017-06-20] MEDS ORDERED: Metoprolol Succinate 25 MG Tab.ER PO SCH (09:00)
[2017-06-20] MEDS ORDERED: predniSONE 20 MG Tab PO SCH (09:00)
[2017-06-20] MEDS: Tiotropium Inhaler 18 MCG Inhalation Powder Cap Kit of 5 INH SCH (10:31)
[2017-06-20] MEDS: Formoterol/Mometasone 200-5 MCG 8.8 GM Inhaler IH SCH (10:32)
[2017-06-20] MEDS ORDERED: Heparin Sodium/D5W 25,000 UNITS/500 ML BAG IV SCH (10:45)
[2017-06-20] MEDS ORDERED: Heparin Sodium 10,000 Units/1 ML MDV IVPUSH ONE ×2 (10:50→20:57)
--- NOTE | 2017-06-20 10:55 | PCM.PN ---
- General Info Date of Service: 06/20/17 Admission Dx/Problem (Free Text): Hyperkalemia NSTEMI Carolynn is seen this morning resting comfortably in bed. She denies complaints of chest pain shortness of breath at rest, she does have chronic dyspnea on exertion no worse than usual. She was up and ambulatory with physical therapy this morning and did well. She is voiding. She had breakfast has a good appetite no nausea vomiting or diarrhea. Denies abdominal pain or back pain. Functional Status: Reports: Pain Controlled, Tolerating Diet, Ambulating, Urinating. Denies: New Symptoms - Review of Systems General: Reports: No Symptoms HEENT: Reports: No Symptoms Pulmonary: Reports: Shortness of Breath (chronic- at baseline). Denies: Cough Cardiovascular: Reports: No Symptoms, Dyspnea on Exertion (chronic- at baseline) . Denies: Chest Pain, Palpitations Gastrointestinal: Reports: No Symptoms. Denies: Diarrhea, Nausea, Vomiting Genitourinary: Reports: No Symptoms Musculoskeletal: Reports: No Symptoms Skin: Reports: No Symptoms Neurological: Reports: No Symptoms Psychiatric: Reports: No Symptoms - Patient Data Vitals - Most Recent: Last Vital Signs Temp 97.9 F 06/20/17 07:26 Pulse 110 H 06/20/17 10:27 Resp 20 06/20/17 07:26 BP 120/66 06/20/17 10:27 Pulse Ox 98 06/20/17 07:52 Weight - Most Recent: 166 lb I&O - Last 24 Hours: Intake & Output 06/19/17 06/20/17 06/20/17 22:59 06:59 14:59 Intake Total 600 120 Balance 600 120 Lab Results Last 24 Hours: Laboratory Results - last 24 hr 06/20/17 06/20/17 06/20/17 Range/Units 06:25 06:25 06:30 WBC 14.56 H (3.98-10.04) K/mm3 RBC 3.14 L (3.98-5.22) M/mm3 Hgb 10.7 L (11.2-15.7) gm/L Hct 31.9 L (34.1-44.9) % MCV 101.6 H (79.4-94.8) fl MCH 34.1 H (25.6-32.2) pg MCHC 33.5 (32.2-35.5) g/dl RDW Std Deviation 66.3 H (36.4-46.3) fL Plt Count 145 L (182-369) K/mm3 MPV 10.6 (9.4-12.3) fl Neut % (Auto) 88.0 H (34.0-71.1) % Lymph % (Auto) 3.3 L (19.3-51.7) % [place] % (Auto) 6.9 (4.7-12.5) % Eos % (Auto) 0.1 L (0.7-5.8) Baso % (Auto) 0.1 (0.1-1.2) % Neut # (Auto) 12.80 H (1.56-6.13) K/mm3 Lymph # (Auto) 0.48 L (1.18-3.74) K/mm3 [place] # (Auto) 1.01 H (0.24-0.36) K/mm3 Eos # (Auto) 0.01 L (0.04-0.36) K/mm3 Baso # (Auto) 0.02 (0.01-0.08) K/mm3 Manual Slide Review Abnormal smear Sodium 139 (136-145) mEq/L Potassium 5.6 H (3.5-5.1) mEq/L Chloride 107 (98-107) mEq/L Carbon Dioxide 21 (21-32) mEq/L Anion Gap 16.6 H (5-15) BUN 102 H (7-18) mg/dL Creatinine 4.3 H (0.55-1.02) mg/dL Est Cr Clr Drug Dosing 7.66 mL/min Estimated GFR (MDRD) 10 (>60) mL/min BUN/Creatinine Ratio 23.7 H (14-18) Glucose 209 H (83-115) mg/dL Calcium 9.7 (8.5-10.1) mg/dL Phosphorus 4.3 (2.6-4.7) mg/dL Magnesium 1.8 (1.8-2.4) mg/dl CK-MB (CK-2) 4.2 H (0-3.6) ng/ml Troponin I 0.151 H* (0.00-0.056) ng/mL NT-Pro-B Natriuret Pep 5934 H (0-450) pg/mL Albumin 3.0 L (3.4-5.0) g/dl MRSA (PCR) Negative Med Orders - Current: Current Medications Acetaminophen (Tylenol) 650 mg PO Q4H PRN PRN Reason: Pain (Mild 1-3)/fever Hydrocodone Bitart/Acetaminophen ([place] 325-5 Mg) 1 tab PO Q4H PRN PRN Reason: Pain (moderate 4-6) Albuterol (Proventil Hfa) 0 gm INH ASDIRECTED PRN PRN Reason: Shortness of Breath Albuterol/Ipratropium (Duoneb 3.0-0.5 Mg/3 Ml) 3 ml NEB Q4H PRN PRN Reason: Shortness Of Breath/wheezing Bisacodyl (Dulcolax) 5 mg PO DAILY PRN PRN Reason: Constipation Diltiazem HCl (Cardizem) 60 mg PO BID [facility] Last Admin: 06/20/17 08:53 Dose: 60 mg Docusate Sodium (Colace) 100 mg PO BID PRN PRN Reason: Constipation Folic Acid (Folic Acid) 1 mg PO DAILY [facility] Last Admin: 06/20/17 08:54 Dose: 1 mg Hydralazine HCl (Apresoline) 10 mg IVPUSH Q4H PRN PRN Reason: Hypertension Promethazine HCl 6.25 mg/ (Sodium Chloride) 50.25 mls @ 100 mls/hr IV Q6H PRN PRN Reason: Nausea/Vomiting Sodium Chloride (Normal Saline) 1,000 mls @ 25 mls/hr IV ASDIRECTED [facility] Heparin Sodium/Dextrose (Heparin 25,000 Units In D5w 500 Ml) 25,000 units in 500 mls @ 9 mls/hr IV TITRATE DANIEL; 6 UNITS/KG/HR PRN Reason: Protocol Levothyroxine Sodium (Synthroid) 100 mcg PO ACBREAKFAST [facility] Last Admin: 06/20/17 06:31 Dose: 100 mcg Lorazepam (Ativan) 0.25 mg IV Q6H PRN PRN Reason: Anxiety Magnesium Hydroxide (Milk Of Magnesia) 30 ml PO Q12H PRN PRN Reason: Constipation Magnesium Sulfate (Pharmacy To Dose - Magnesium Replacement) 1 dose .XX ASDIRECTED [facility] Metoprolol Succinate (Toprol Xl) 50 mg PO DAILY [facility] Metoprolol Tartrate (Lopressor) 5 mg IVPUSH Q4H PRN PRN Reason: Tachycardia Last Admin: 06/20/17 10:27 Dose: 5 mg Mometasone Furoate/Formoterol Fumar (Dulera 200-5 Mcg) 2 puff IH DAILY [facility] Last Admin: 06/20/17 10:32 Dose: 2 puff Multivitamins (Thera) 1 each PO DAILY [facility] Last Admin: 06/20/17 08:51 Dose: 1 each Ondansetron HCl (Zofran) 4 mg IV Q6H PRN PRN Reason: Nausea/Vomiting Polyethylene Glycol (Miralax) 17 gm PO DAILY PRN PRN Reason: Constipation Potassium Chloride (Pharmacy To Dose - Potassium Replacement) 1 dose .XX ASDIRECTED [facility] Prednisone (Prednisone) 10 mg PO DAILY [facility] Last Admin: 06/20/17 08:51 Dose: 10 mg Senna/Docusate Sodium (Senna Plus) 1 tab PO BID PRN PRN Reason: Constipation Sodium Chloride (Saline Flush) 10 ml FLUSH ASDIRECTED PRN PRN Reason: Keep Vein Open Last Admin: 06/19/17 22:01 Dose: 10 ml Temazepam (Restoril) 7.5 mg PO BEDTIME PRN PRN Reason: Sleep Tiotropium [place] (Spiriva Handihaler) 18 mcg INH DAILY [facility] Last Admin: 06/20/17 10:31 Dose: 1 puff Tramadol HCl (Ultram) 50 mg PO BID PRN PRN Reason: Pain Discontinued Medications Albuterol (Proventil Neb Soln) 2.5 mg NEB ONETIME ONE Stop: 06/19/17 22:54 Last Admin: 06/19/17 23:10 Dose: 2.5 mg Albuterol (Proventil Neb Soln) 2.5 mg NEB ONETIME ONE Stop: 06/19/17 22:55 Last Admin: 06/19/17 23:10 Dose: 2.5 mg Albuterol (Proventil Neb Soln) 2.5 mg NEB ONETIME ONE Stop: 06/19/17 22:56 Last Admin: 06/19/17 23:11 Dose: 2.5 mg Albuterol/Ipratropium (Duoneb 3.0-0.5 Mg/3 Ml) 3 ml INH Q4H PRN PRN Reason: Shortness of Breath Calcium Gluconate (Calcium Gluconate) 1 gm IVPUSH ONETIME ONE Stop: 06/19/17 22:56 Last Admin: 06/19/17 23:06 Dose: 1 gm Heparin Sodium (Porcine) (Heparin Sodium) 4,000 units IVPUSH .BOLUS ONE Stop: 06/20/17 10:51 Sodium Chloride (Normal Saline) 1,000 mls @ 999 mls/hr IV ONETIME ONE Stop: 06/19/17 22:55 Last Admin: 06/19/17 22:02 Dose: 999 mls/hr Sodium Chloride (Normal Saline) 1,000 mls @ 50 mls/hr IV ASDIRECTED DANIEL Stop: 06/20/17 06:00 Last Admin: 06/20/17 01:20 Dose: 50 mls/hr Metoprolol Succinate (Toprol Xl) 25 mg PO DAILY [facility] Last Admin: 06/20/17 08:53 Dose: 25 mg Non-Formulary Medication (Fluticasone/Salmeterol) 1 puff INH ASDIRECTED PRN PRN Reason: Shortness of Breath Sodium Bicarbonate (Sodium Bicarbonate 8.4%) 50 meq IVPUSH ONETIME ONE Stop: 06/19/17 22:58 Last Admin: 06/19/17 23:06 Dose: 50 meq Sodium Polystyrene Sulfonate (Kayexalate) 15 gm PO ONETIME ONE Stop: 06/19/17 22:57 Last Admin: 06/19/17 23:06 Dose: 15 gm Sodium Polystyrene Sulfonate (Kayexalate) 45 gm RECTAL NOW ONE Stop: 06/20/17 00:46 Last Admin: 06/20/17 01:34 Dose: 45 gm - Exam Quality Assessment: Supplemental Oxygen (2L/NC), DVT Prophylaxis General: Alert, Oriented, Cooperative, No Acute Distress HEENT: Pupils Equal, EOMI, Mucous Membr. Moist/[place] Neck: Supple Lungs: Clear to Auscultation, Normal Respiratory Effort, Decreased Breath Sounds (bases) Cardiovascular: Regular Rate, Regular Rhythm, No Murmurs GI/Abdominal Exam: Normal Bowel Sounds, Soft, Non-Tender (Female) Exam: Deferred Extremities: Normal Capillary Refill, Pedal Edema (trace to ankles bilat) Peripheral Pulses: 1+: Dorsalis Pedis (L), Dorsalis Pedis (R) Neurological: No New Focal Deficit Psy/Mental Status: Alert, Normal Affect, Normal Mood - Problem List & Annotations (1) NSTEMI (non-ST elevated myocardial infarction) SNOMED Code(s): 884571911 Code(s): I21.4 - NON-ST ELEVATION (NSTEMI) MYOCARDIAL INFARCTION Status: Acute Priority: High Current Visit: Yes (2) MIMI (acute kidney injury) SNOMED Code(s): 98231763 Code(s): N17.9 - ACUTE KIDNEY FAILURE, UNSPECIFIED Status: Acute Priority : High Current Visit: Yes (3) CKD (chronic kidney disease) stage 5, GFR less than 15 ml/min SNOMED Code(s): 234552898 Code(s): N18.5 - CHRONIC KIDNEY DISEASE, STAGE 5 Status: Chronic Priority : High Current Visit: Yes (4) Hyperkalemia SNOMED Code(s): 47852518 Code(s): E87.5 - HYPERKALEMIA Status: Acute Priority: High Current Visit: Yes (5) Leukocytosis SNOMED Code(s): 548837282 Code(s): D72.829 - ELEVATED WHITE BLOOD CELL COUNT, UNSPECIFIED Status: Acute Priority: Medium Current Visit: Yes Qualifiers: Leukocytosis type: unspecified Qualified Code(s): D72.829 - Elevated white blood cell count, unspecified - Problem List Review Problem List Initiated/Reviewed/Updated: Yes - My Orders Last 24 Hours: My Active Orders 07/01/17 07:00 CBC W/O DIFF,HEMOGRAM [HEME] MOTH@69907/04/17 07:00 CBC W/O DIFF,HEMOGRAM [HEME] MOTH@69907/08/17 07:00 CBC W/O DIFF,HEMOGRAM [HEME] MOTH@00 07/11/17 07:00 CBC W/O DIFF,HEMOGRAM [HEME] MOTH@00 06/20/17 10:45 PTT,PARTIAL THROMBOPLSTIN TIME [COAG] Stat Heparin Sodium/D5W [Heparin 25,000 Units in D5W 500 ML] 25,000 units in 500 ml IV TITRATE 06/20/17 10:53 TSH [CHEM] Routine 06/21/17 09:00 Metoprolol Succinate [Toprol XL] 50 mg PO DAILY 06/24/17 07:00 CBC W/O DIFF,HEMOGRAM [HEME] MOTH@0706/27/17 07:00 CBC W/O DIFF,HEMOGRAM [HEME] MOTH@0700 - Plan Plan:: Assessment/Plan: Acute: NSTEMI--- CKMB and Troponin both elevated x 2 readings, repeat at 1300 today; asymptomatic - Started heparin gtt IV today, loading dose then gtt per protocol - EKG without ST segment changes, consistent with NSTEMI - Recommend medical management only since she is DNR/DNI--Discussed with patient possibility of transfer to [place] for Cardiology eval if repeat enzymes higher. She wishes to think this over until 1300, next cardiac markers due and readdress, she will speak to her family and decide. - Core measures: ASA started, Metoprolol dose increased, ACEI- contraindicated d/t CKD/ARF, start statin and check lipid panel. MIMI on CKD -- GFR 10 today, up from 9 - Baseline Cr is 2.2-2.7; 4.7 on admission; 4.3 today; Follows with Nephrology, Dr. Perez - eGFR is 9-->10; Stage 5 at this point - Abnormal e-lytes: CO2 19, AG 18.5, BUN 109, Ca 10.6, Na 135 on admit - Gentle hydration -- 25cc/hr - Renal U/S r/o Obstructive Uropathy Hyperkalemia - K 6.5-->5.6 - Likely 2/2 MIMI - Received NaHCOS, Albuterol, Ca+ Gluconate and Kayexalate in ED; repeat kayexalate last night - Telemetry - Monitor, recheck tomorrow am Leukocytosis, improved to 14.56 today - She is on oral Prednison 20 mg po daily for Psoriasis - Monitor Anemia- likely acute on chronic due to CKD -hgb 10.7 today -cont to follow Chronic: HTN HLD COPD- oxygen dependent at home at 2L/N; ex smoker- quit in 1993 CKD Stage 4 OA Hypothyroidism- TSH WNL at 3.261 Psoriasis-on MTX and prednisone Hx tobacco use- quit in 1993 Plan: Admit to Med-Surg floor with Telemetry Routine AM labs Hold Allopurinol, MTX, Lisinopril and Lasix IV gentle hydration PT/OT consult SW/CM for d/c planning-- Will readdress possible transfer vs medical management when next set of cardiac markers back at 1300 today. If patient elects medical management expect 2-3 more days of treatment, possibly more. Code status: DNR/DNI
[2017-06-20] MEDS ORDERED: Heparin Sodium 5,000 Units/ML Vial IVPUSH ONE (11:15)
--- NOTE | 2017-06-20 13:01 | CR ---
Chest: Portable view of the chest was obtained. Comparison: Prior chest x-ray of 05/23/17. Chronic elevation of the right hemidiaphragm is seen with pleural thickening within the costophrenic angle. Lungs are clear with no acute pulmonary densities. Heart size is normal. Mild tortuosity of the thoracic aorta is seen. Bony structures are grossly intact. Impression: 1. Chronic change within the right lung base. Nothing acute is identified on portable chest x-ray. Diagnostic code #2 MTDD
--- NOTE | 2017-06-20 13:51 | US ---
Renal ultrasound: Multiple real-time images of the kidneys were obtained. Kidneys show no hydronephrosis or mass. Renal cortices are echogenic. Resistivity indices are minimally increased. Prevoid volume within the bladder is 120 mL and post void volume is 8 mL. Bilateral ureteral jets are seen within the bladder. Right kidney length: 9.4 cm Left kidney length: 10.8 cm Impression: 1. Echogenic renal cortices. Slightly elevated resistivity indices. These findings are compatible with nonspecific medical renal disease. 2. Minimal postvoid residual which is incidental. 3. No additional finding is seen on renal ultrasound study. Diagnostic code #3
[2017-06-20] MEDS: Aspirin 325 MG Tab.EC PO ONE ×2 (14:15→14:32)
[2017-06-20] MEDS ORDERED: Aspirin 325 MG Tab.EC PO ONE (14:31)
[2017-06-20] MEDS ORDERED: Simvastatin 10 MG Tab PO SCH (21:00)
[2017-06-20] MEDS ORDERED: Heparin Sodium 5,000 Units/ML Vial ONE (21:06)
[2017-06-20] MEDS: Simvastatin 20 MG Tab PO SCH (21:47)
[2017-06-21] MEDS: Levothyroxine 100 MCG Tab PO SCH (05:14)
--- NOTE | 2017-06-21 07:08 | PCM.PN ---
- General Info Date of Service: 06/21/17 Admission Dx/Problem (Free Text): Hyperkalemia Subjective Update: In to see Analy today as she is receiving treatment from [facility]. She reports she is doing very well. Respiratory symptoms are at baseline. Her potassium continues to be elevated and she will receive some more Kayexalate today. She is still on heparin drip. A PTT reached therapeutic range earlier today. We' ll continue to monitor. Functional Status: Reports: Pain Controlled, Tolerating Diet, Ambulating, Urinating. Denies: New Symptoms - Review of Systems General: Reports: No Symptoms. Denies: Fever, Weakness, Fatigue, Malaise HEENT: Reports: No Symptoms. Denies: Ear Pain, Eye Pain, Headaches, Sore Throat , Visual Changes Pulmonary: Reports: Shortness of Breath (chronic- at baseline ). Denies: Pleuritic Chest Pain, Cough, Sputum Cardiovascular: Reports: Dyspnea on Exertion (chronic - at baseline ). Denies: Chest Pain, Palpitations, Lightheadedness Gastrointestinal: Reports: No Symptoms. Denies: Abdominal Pain, Constipation, Diarrhea, Melena, Nausea, Vomiting Genitourinary: Reports: No Symptoms. Denies: Dysuria, Frequency, Burning, Pain , Urgency Musculoskeletal: Reports: No Symptoms Skin: Reports: No Symptoms Neurological: Reports: No Symptoms Psychiatric: Reports: No Symptoms - Patient Data Vitals - Most Recent: Last Vital Signs Temp 97.3 F 06/21/17 03:38 Pulse 79 06/21/17 03:38 Resp 18 06/21/17 03:38 BP 100/57 L 06/21/17 03:38 Pulse Ox 95 06/21/17 03:38 Weight - Most Recent: 169 lb 9.6 oz I&O - Last 24 Hours: Intake & Output 06/20/17 06/21/17 06/21/17 22:59 06:59 14:59 Intake Total 738 100 Output Total 600 900 Balance 138 -800 Lab Results Last 24 Hours: Laboratory Results - last 24 hr 06/20/17 06/20/17 06/20/17 Range/Units 06:25 06:25 06:30 WBC 14.56 H (3.98-10.04) K/mm3 RBC 3.14 L (3.98-5.22) M/mm3 Hgb 10.7 L (11.2-15.7) gm/L Hct 31.9 L (34.1-44.9) % MCV 101.6 H (79.4-94.8) fl MCH 34.1 H (25.6-32.2) pg MCHC 33.5 (32.2-35.5) g/dl RDW Std Deviation 66.3 H (36.4-46.3) fL Plt Count 145 L (182-369) K/mm3 MPV 10.6 (9.4-12.3) fl Neut % (Auto) 88.0 H (34.0-71.1) % Lymph % (Auto) 3.3 L (19.3-51.7) % [place] % (Auto) 6.9 (4.7-12.5) % Eos % (Auto) 0.1 L (0.7-5.8) Baso % (Auto) 0.1 (0.1-1.2) % Neut # (Auto) 12.80 H (1.56-6.13) K/mm3 Lymph # (Auto) 0.48 L (1.18-3.74) K/mm3 [place] # (Auto) 1.01 H (0.24-0.36) K/mm3 Eos # (Auto) 0.01 L (0.04-0.36) K/mm3 Baso # (Auto) 0.02 (0.01-0.08) K/mm3 Manual Slide Review Abnormal smear APTT (22-36) SECONDS Sodium 139 (136-145) mEq/L Potassium 5.6 H (3.5-5.1) mEq/L Chloride 107 (98-107) mEq/L Carbon Dioxide 21 (21-32) mEq/L Anion Gap 16.6 H (5-15) BUN 102 H (7-18) mg/dL Creatinine 4.3 H (0.55-1.02) mg/dL Est Cr Clr Drug Dosing 7.66 mL/min Estimated GFR (MDRD) 10 (>60) mL/min BUN/Creatinine Ratio 23.7 H (14-18) Glucose 209 H (83-115) mg/dL Calcium 9.7 (8.5-10.1) mg/dL Phosphorus 4.3 (2.6-4.7) mg/dL Magnesium 1.8 (1.8-2.4) mg/dl CK-MB (CK-2) 4.2 H (0-3.6) ng/ml Troponin I 0.151 H* (0.00-0.056) ng/mL NT-Pro-B Natriuret Pep 5934 H (0-450) pg/mL Albumin 3.0 L (3.4-5.0) g/dl Triglycerides (<150) mg/dL Cholesterol (<200) mg/dL LDL Cholesterol Direct (<100) mg/dL HDL Cholesterol (40-59) mg/dL TSH 3rd Generation (0.358-3.74) uIU/mL MRSA (PCR) Negative 06/20/17 06/20/17 06/20/17 Range/Units 11:20 11:20 11:20 WBC (3.98-10.04) K/mm3 RBC (3.98-5.22) M/mm3 Hgb (11.2-15.7) gm/L Hct (34.1-44.9) % MCV (79.4-94.8) fl MCH (25.6-32.2) pg MCHC (32.2-35.5) g/dl RDW Std Deviation (36.4-46.3) fL Plt Count (182-369) K/mm3 MPV (9.4-12.3) fl Neut % (Auto) (34.0-71.1) % Lymph % (Auto) (19.3-51.7) % [place] % (Auto) (4.7-12.5) % Eos % (Auto) (0.7-5.8) Baso % (Auto) (0.1-1.2) % Neut # (Auto) (1.56-6.13) K/mm3 Lymph # (Auto) (1.18-3.74) K/mm3 [place] # (Auto) (0.24-0.36) K/mm3 Eos # (Auto) (0.04-0.36) K/mm3 Baso # (Auto) (0.01-0.08) K/mm3 Manual Slide Review APTT 22 (22-36) SECONDS Sodium (136-145) mEq/L Potassium (3.5-5.1) mEq/L Chloride (98-107) mEq/L Carbon Dioxide (21-32) mEq/L Anion Gap (5-15) BUN (7-18) mg/dL Creatinine (0.55-1.02) mg/dL Est Cr Clr Drug Dosing mL/min Estimated GFR (MDRD) (>60) mL/min BUN/Creatinine Ratio (14-18) Glucose (83-115) mg/dL Calcium (8.5-10.1) mg/dL Phosphorus (2.6-4.7) mg/dL Magnesium (1.8-2.4) mg/dl CK-MB (CK-2) 4.7 H (0-3.6) ng/ml Troponin I 0.134 H* (0.00-0.056) ng/mL NT-Pro-B Natriuret Pep (0-450) pg/mL Albumin (3.4-5.0) g/dl Triglycerides (<150) mg/dL Cholesterol (<200) mg/dL LDL Cholesterol Direct (<100) mg/dL HDL Cholesterol (40-59) mg/dL TSH 3rd Generation 3.261 (0.358-3.74) uIU/mL MRSA (PCR) 06/20/17 06/20/17 06/21/17 Range/Units 11:20 18:52 02:05 WBC (3.98-10.04) K/mm3 RBC (3.98-5.22) M/mm3 Hgb (11.2-15.7) gm/L Hct (34.1-44.9) % MCV (79.4-94.8) fl MCH (25.6-32.2) pg MCHC (32.2-35.5) g/dl RDW Std Deviation (36.4-46.3) fL Plt Count (182-369) K/mm3 MPV (9.4-12.3) fl Neut % (Auto) (34.0-71.1) % Lymph % (Auto) (19.3-51.7) % [place] % (Auto) (4.7-12.5) % Eos % (Auto) (0.7-5.8) Baso % (Auto) (0.1-1.2) % Neut # (Auto) (1.56-6.13) K/mm3 Lymph # (Auto) (1.18-3.74) K/mm3 [place] # (Auto) (0.24-0.36) K/mm3 Eos # (Auto) (0.04-0.36) K/mm3 Baso # (Auto) (0.01-0.08) K/mm3 Manual Slide Review APTT 29 78 H (22-36) SECONDS Sodium (136-145) mEq/L Potassium (3.5-5.1) mEq/L Chloride (98-107) mEq/L Carbon Dioxide (21-32) mEq/L Anion Gap (5-15) BUN (7-18) mg/dL Creatinine (0.55-1.02) mg/dL Est Cr Clr Drug Dosing mL/min Estimated GFR (MDRD) (>60) mL/min BUN/Creatinine Ratio (14-18) Glucose (83-115) mg/dL Calcium (8.5-10.1) mg/dL Phosphorus (2.6-4.7) mg/dL Magnesium (1.8-2.4) mg/dl CK-MB (CK-2) (0-3.6) ng/ml Troponin I (0.00-0.056) ng/mL NT-Pro-B Natriuret Pep (0-450) pg/mL Albumin (3.4-5.0) g/dl Triglycerides 73 (<150) mg/dL Cholesterol 231 H (<200) mg/dL LDL Cholesterol Direct 105 H* (<100) mg/dL HDL Cholesterol 96.0 H (40-59) mg/dL TSH 3rd Generation (0.358-3.74) uIU/mL MRSA (PCR) Med Orders - Current: Current Medications Acetaminophen (Tylenol) 650 mg PO Q4H PRN PRN Reason: Pain (Mild 1-3)/fever Hydrocodone Bitart/Acetaminophen ([place] 325-5 Mg) 1 tab PO Q4H PRN PRN Reason: Pain (moderate 4-6) Albuterol (Proventil Hfa) 0 gm INH ASDIRECTED PRN PRN Reason: Shortness of Breath Albuterol/Ipratropium (Duoneb 3.0-0.5 Mg/3 Ml) 3 ml NEB Q4H PRN PRN Reason: Shortness Of Breath/wheezing Aspirin (Aspirin) 81 mg PO DAILY DANIEL Bisacodyl (Dulcolax) 5 mg PO DAILY PRN PRN Reason: Constipation Diltiazem HCl (Cardizem) 60 mg PO BID [facility] Last Admin: 06/20/17 21:46 Dose: 60 mg Docusate Sodium (Colace) 100 mg PO BID PRN PRN Reason: Constipation Fluconazole (Diflucan) 100 mg PO DAILY [facility] Stop: 06/22/17 09:01 Folic Acid (Folic Acid) 1 mg PO DAILY [facility] Last Admin: 06/20/17 08:54 Dose: 1 mg Hydralazine HCl (Apresoline) 10 mg IVPUSH Q4H PRN PRN Reason: Hypertension Promethazine HCl 6.25 mg/ (Sodium Chloride) 50.25 mls @ 100 mls/hr IV Q6H PRN PRN Reason: Nausea/Vomiting Heparin Sodium/Dextrose (Heparin 25,000 Units In D5w 500 Ml) 25,000 units in 500 mls @ 9 mls/hr IV TITRATE DANIEL; 6 UNITS/KG/HR PRN Reason: Protocol Last Admin: 06/20/17 14:35 Dose: 9 mls/hr Levothyroxine Sodium (Synthroid) 100 mcg PO ACBREAKFAST [facility] Last Admin: 06/21/17 05:14 Dose: 100 mcg Lorazepam (Ativan) 0.25 mg IV Q6H PRN PRN Reason: Anxiety Magnesium Hydroxide (Milk Of Magnesia) 30 ml PO Q12H PRN PRN Reason: Constipation Magnesium Sulfate (Pharmacy To Dose - Magnesium Replacement) 1 dose .XX ASDIRECTED [facility] Metoprolol Succinate (Toprol Xl) 50 mg PO DAILY [facility] Metoprolol Tartrate (Lopressor) 5 mg IVPUSH Q4H PRN PRN Reason: Tachycardia Last Admin: 06/20/17 10:27 Dose: 5 mg Mometasone Furoate/Formoterol Fumar (Dulera 200-5 Mcg) 2 puff IH DAILY [facility] Last Admin: 06/20/17 10:32 Dose: 2 puff Multivitamins (Thera) 1 each PO DAILY [facility] Last Admin: 06/20/17 08:51 Dose: 1 each Ondansetron HCl (Zofran) 4 mg IV Q6H PRN PRN Reason: Nausea/Vomiting Polyethylene Glycol (Miralax) 17 gm PO DAILY PRN PRN Reason: Constipation Potassium Chloride (Pharmacy To Dose - Potassium Replacement) 1 dose .XX ASDIRECTED DANIEL Senna/Docusate Sodium (Senna Plus) 1 tab PO BID PRN PRN Reason: Constipation Simvastatin (Zocor) 20 mg PO BEDTIME [facility] Last Admin: 06/20/17 21:47 Dose: 20 mg Sodium Chloride (Saline Flush) 10 ml FLUSH ASDIRECTED PRN PRN Reason: Keep Vein Open Last Admin: 06/19/17 22:01 Dose: 10 ml Temazepam (Restoril) 7.5 mg PO BEDTIME PRN PRN Reason: Sleep Tiotropium [place] (Spiriva Handihaler) 18 mcg INH DAILY [facility] Last Admin: 06/20/17 10:31 Dose: 1 puff Tramadol HCl (Ultram) 50 mg PO BID PRN PRN Reason: Pain Discontinued Medications Albuterol (Proventil Neb Soln) 2.5 mg NEB ONETIME ONE Stop: 06/19/17 22:54 Last Admin: 06/19/17 23:10 Dose: 2.5 mg Albuterol (Proventil Neb Soln) 2.5 mg NEB ONETIME ONE Stop: 06/19/17 22:55 Last Admin: 06/19/17 23:10 Dose: 2.5 mg Albuterol (Proventil Neb Soln) 2.5 mg NEB ONETIME ONE Stop: 06/19/17 22:56 Last Admin: 06/19/17 23:11 Dose: 2.5 mg Albuterol/Ipratropium (Duoneb 3.0-0.5 Mg/3 Ml) 3 ml INH Q4H PRN PRN Reason: Shortness of Breath Aspirin (Ecotrin) 325 mg PO ONETIME ONE Stop: 06/20/17 12:37 Last Admin: 06/20/17 14:32 Dose: Not Given Aspirin (Ecotrin) 325 mg PO ONETIME ONE Stop: 06/20/17 14:32 Last Admin: 06/20/17 14:38 Dose: 325 mg Calcium Gluconate (Calcium Gluconate) 1 gm IVPUSH ONETIME ONE Stop: 06/19/17 22:56 Last Admin: 06/19/17 23:06 Dose: 1 gm Heparin Sodium (Porcine) (Heparin Sodium) 4,000 units IVPUSH .BOLUS ONE Stop: 06/20/17 10:51 Last Admin: 06/20/17 11:45 Dose: Not Given Heparin Sodium (Porcine) (Heparin Sodium) 4,000 units IVPUSH .BOLUS ONE Stop: 06/20/17 11:16 Last Admin: 06/20/17 11:45 Dose: 4,000 units Heparin Sodium (Porcine) (Heparin Sodium) 2,000 units IVPUSH .BOLUS ONE Stop: 06/20/17 20:58 Last Admin: 06/20/17 21:18 Dose: Not Given Heparin Sodium (Porcine) (Heparin Sodium) Confirm Administered Dose 5,000 units .ROUTE .STK-MED ONE Stop: 06/20/17 21:07 Last Admin: 06/20/17 21:17 Dose: 2,000 units Sodium Chloride (Normal Saline) 1,000 mls @ 999 mls/hr IV ONETIME ONE Stop: 06/19/17 22:55 Last Admin: 06/19/17 22:02 Dose: 999 mls/hr Sodium Chloride (Normal Saline) 1,000 mls @ 50 mls/hr IV ASDIRECTED [facility] Stop: 06/20/17 06:00 Last Admin: 06/20/17 01:20 Dose: 50 mls/hr Sodium Chloride (Normal Saline) 1,000 mls @ 25 mls/hr IV ASDIRECTED [facility] Metoprolol Succinate (Toprol Xl) 25 mg PO DAILY [facility] Last Admin: 06/20/17 08:53 Dose: 25 mg Non-Formulary Medication (Fluticasone/Salmeterol) 1 puff INH ASDIRECTED PRN PRN Reason: Shortness of Breath Prednisone (Prednisone) 10 mg PO DAILY [facility] Last Admin: 06/20/17 08:51 Dose: 10 mg Simvastatin (Zocor) 10 mg PO BEDTIME [facility] Sodium Bicarbonate (Sodium Bicarbonate 8.4%) 50 meq IVPUSH ONETIME ONE Stop: 06/19/17 22:58 Last Admin: 06/19/17 23:06 Dose: 50 meq Sodium Polystyrene Sulfonate (Kayexalate) 15 gm PO ONETIME ONE Stop: 06/19/17 22:57 Last Admin: 06/19/17 23:06 Dose: 15 gm Sodium Polystyrene Sulfonate (Kayexalate) 45 gm RECTAL NOW ONE Stop: 06/20/17 00:46 Last Admin: 06/20/17 01:34 Dose: 45 gm - Exam Quality Assessment: Supplemental Oxygen, DVT Prophylaxis General: Alert, Oriented, Cooperative, No Acute Distress HEENT: Pupils Equal, Pupils Reactive, EOMI, Mucous Membr. Moist/[place] Neck: Supple, Trachea Midline, No JVD, No Thyromegaly Lungs: Normal Respiratory Effort, Decreased Breath Sounds Cardiovascular: Regular Rate, Regular Rhythm, No Murmurs GI/Abdominal Exam: Normal Bowel Sounds, Soft, Non-Tender, No Organomegaly, No Distention, No Abnormal Bruit, No Mass, Pelvis Stable (Female) Exam: Deferred Back Exam: Normal Inspection, Full Range of Motion Extremities: Normal Inspection, Normal Range of Motion, Non-Tender, Normal Capillary Refill, Pedal Edema (trace ) Peripheral Pulses: 1+: Posterior Tibial (L), Posterior Tibial (R), Dorsalis Pedis (L), Dorsalis Pedis (R), 2+: Radial (L), Radial (R) Skin: Warm, Dry, Intact, Other (Scattered psoriasis throughout) Neurological: No New Focal Deficit Psy/Mental Status: Alert, Normal Affect, Normal Mood - Problem List & Annotations (1) MIMI (acute kidney injury) SNOMED Code(s): 74563709 Code(s): N17.9 - ACUTE KIDNEY FAILURE, UNSPECIFIED Status: Acute Priority : High Current Visit: Yes (2) Hyperkalemia SNOMED Code(s): 26595532 Code(s): E87.5 - HYPERKALEMIA Status: Acute Priority: High Current Visit: Yes (3) NSTEMI (non-ST elevated myocardial infarction) SNOMED Code(s): 480781358 Code(s): I21.4 - NON-ST ELEVATION (NSTEMI) MYOCARDIAL INFARCTION Status: Acute Priority: High Current Visit: Yes (4) CKD (chronic kidney disease) stage 5, GFR less than 15 ml/min SNOMED Code(s): 478022278 Code(s): N18.5 - CHRONIC KIDNEY DISEASE, STAGE 5 Status: Chronic Priority : High Current Visit: Yes (5) Leukocytosis SNOMED Code(s): 614178639 Code(s): D72.829 - ELEVATED WHITE BLOOD CELL COUNT, UNSPECIFIED Status: Acute Priority: Medium Current Visit: Yes Qualifiers: Leukocytosis type: unspecified Qualified Code(s): D72.829 - Elevated white blood cell count, unspecified (6) Hyperlipidemia SNOMED Code(s): 50722152 Code(s): E78.5 - HYPERLIPIDEMIA, UNSPECIFIED Status: Acute Priority: Medium Current Visit: Yes Qualifiers: Hyperlipidemia type: pure hypercholesterolemia Qualified Code(s): E78.00 - Pure hypercholesterolemia, unspecified; E78.0 - Pure hypercholesterolemia (7) Hypomagnesemia SNOMED Code(s): 187178500 Code(s): E83.42 - HYPOMAGNESEMIA Status: Acute Priority: Medium Current Visit: Yes - Problem List Review Problem List Initiated/Reviewed/Updated: Yes - My Orders Last 24 Hours: My Active Orders 06/21/17 09:00 Fluconazole [Diflucan] 100 mg PO DAILY - Plan Plan:: Assessment/Plan: Acute: NSTEMI--- CKMB and Troponin both elevated x 2 readings, repeat today; still asymptomatic - Started heparin gtt IV yesterday, loading dose then gtt per protocol - tolerating well - EKG without ST segment changes, consistent with NSTEMI - Recommend medical management only since she is DNR/DNI--Discussed with patient possibility of transfer to [place] for Cardiology eval if repeat enzymes higher. She wishes to think this over until 1300, next cardiac markers due and readdress, she will speak to her family and decide. -she decided against - Core measures: ASA started - patient refused due to prior visits with Dr. Perez; Metoprolol dose increased; ACEI- contraindicated d/t CKD/ARF; start statin and check lipid panel MIMI on CKD -- GFR 10-->13 today, up from 9 on admission - Baseline Cr is 2.2-2.7; 4.7 on admission; 4.3--> 3.4 today; Follows with Nephrology, Dr. Perez - eGFR is 9-->10-->; Stage 5 at this point, slow improvement - Abnormal e-lytes: CO2 19, AG 18.5, BUN 109, Ca 10.6, Na 135 on admit - Gentle hydration -- 25cc/hr - Renal U/S r/o Obstructive Uropathy -1. Echogenic renal cortices. Slightly elevated resistivity indices. Findings felt compatible with nonspecific medical renal disease. -2. Minimal postvoid residual which is incidental -3. No additional findings seen on renal ultrasound study Hyperkalemia - K 6.5-->5.6-->5.3 - Likely 2/2 MIMI - Received NaHCOS, Albuterol, Ca+ Gluconate and Kayexalate in ED; repeat kayexalate yesterday. More Kayexalate today. - Telemetry - Monitor, recheck tomorrow am Leukocytosis, improved to 14.56 -->12.78 today - She is on oral Prednison 20 mg po daily for Psoriasis - Monitor Anemia- likely acute on chronic due to CKD, improved -hgb 10.7 -->11.1 today -cont to follow HLD -Triglycerides 73 -Total cholesterol 231 -LDL 105 -HDL 96 -Statin started Hypomagnesemia -Mg 1.7 today -Pharmacy to monitor and replete Chronic: HTN HLD COPD- oxygen dependent at home at 2L/N; ex smoker- quit in 1993 CKD Stage 4 OA Hypothyroidism- TSH WNL at 3.261 Psoriasis-on MTX and prednisone Hx tobacco use- quit in 1993 Plan: Admit to Med-Surg floor with Telemetry Routine AM labs Hold Allopurinol, MTX, Lisinopril and Lasix IV gentle hydration PT/OT consult SW/CM for d/c planning- Patient elects medical management of Non-STEMI. Expect 2 -3 more days of treatment, possibly more. Code status: DNR/DNI
[2017-06-21] MEDS: Tiotropium Inhaler 18 MCG Inhalation Powder Cap Kit of 5 INH SCH (09:23)
[2017-06-21] MEDS: Formoterol/Mometasone 200-5 MCG 8.8 GM Inhaler IH SCH (09:23)
[2017-06-21] MEDS: Folic Acid 1 MG Tab PO SCH (09:56)
[2017-06-21] MEDS: Aspirin 81 MG Tab.Chew PO SCH ×2 (09:56→12:32)
[2017-06-21] MEDS: Fluconazole 100 MG Tab PO SCH (09:56)
[2017-06-21] MEDS: Multivitamins,Therapeutic Tab PO SCH (09:56)
[2017-06-21] MEDS ORDERED: Magnesium Oxide 400 MG Tab PO ONE (10:00)
[2017-06-21] MEDS: Metoprolol Succinate 50 MG Tab.ER PO SCH (10:45)
[2017-06-21] MEDS: Diltiazem IR 60 MG Tab PO SCH ×2 (11:02→21:16)
[2017-06-21] MEDS ORDERED: Sodium Polystyrene Sulfonate 15 GM/60 ML Susp 60 ML Bot PO ONE (11:30)
[2017-06-21] MEDS ORDERED: Heparin Sodium 5,000 Units/ML Vial IVPUSH ONE ×2 (15:11→22:22)
[2017-06-21] MEDS: Simvastatin 20 MG Tab PO SCH (21:15)
[2017-06-22] MEDS ORDERED: Bumetanide 1 MG/4 ML MDV IVPUSH ONE (01:44)
[2017-06-22] MEDS: Metoprolol Tartrate 5 MG/5 ML SDV IVPUSH PRN (03:22)
[2017-06-22] MEDS: Levothyroxine 100 MCG Tab PO SCH (06:09)
[2017-06-22] MEDS: Azithromycin 500 MG in Sodium Chloride 0.9% 250 ML IV SCH (06:09)
--- NOTE | 2017-06-22 06:40 | PCM.PN ---
- General Info Date of Service: 06/22/17 Admission Dx/Problem (Free Text): Hyperkalemia Subjective Update: Follow Up Functional Status: Reports: Pain Controlled, Tolerating Diet, Urinating, New Symptoms. Denies: Ambulating - Review of Systems General: Denies: Fever, Chills HEENT: Reports: No Symptoms Pulmonary: Reports: Shortness of Breath Cardiovascular: Denies: Chest Pain Gastrointestinal: Denies: Abdominal Pain, Nausea, Vomiting Genitourinary: Reports: No Symptoms Musculoskeletal: Reports: No Symptoms Skin: Denies: Cyanosis, Mottled, Pallor, Diaphoresis, Pruritis Neurological: Reports: Gait Disturbance. Denies: Confusion, Difficulty Walking , Weakness Psychiatric: Denies: Depression, Anxiety, Agitation, Hallucinations Systems Review Comment:: Patient got short of breath and dyspneic/tachypneic last night. Her symptoms was more apparent after activity. She was given IV bumex, saline lock and had a stat chest x-ray. Chest x-ray revealed chronic instertitial lung changes and opacification on the left lung base. She was started immediately on IV Azithromycin/Rocephin for empiric treatment. This morning, she was somewhat hypotensive with BP readings of 88/62 and 84/ 62 mmHg. However on physical examination she appeared clinically worse than yesterday but she stated "I'm getting better" when asked how she was doing. Currently, she is on 5L NC from 6 overnight. She is afebrile with WBC of 14.98. She reports no other complaints. - Patient Data Vitals - Most Recent: Last Vital Signs Temp 36.7 C 06/22/17 01:07 Pulse 111 H 06/22/17 03:22 Resp 24 H 06/22/17 01:07 BP 94/52 L 06/22/17 06:36 Pulse Ox 86 L 06/22/17 01:24 Weight - Most Recent: 75.75 kg I&O - Last 24 Hours: Intake & Output 06/21/17 06/21/17 06/22/17 14:59 22:59 06:59 Intake Total 75 1119 Output Total 500 Balance 75 619 Lab Results Last 24 Hours: Laboratory Results - last 24 hr 06/21/17 06/21/17 06/21/17 Range/Units 07:25 07:25 07:25 WBC 12.78 H (3.98-10.04) K/mm3 RBC 3.21 L (3.98-5.22) M/mm3 Hgb 11.1 L (11.2-15.7) gm/L Hct 32.6 L (34.1-44.9) % MCV 101.6 H (79.4-94.8) fl MCH 34.6 H (25.6-32.2) pg MCHC 34.0 (32.2-35.5) g/dl RDW Std Deviation 70.1 H (36.4-46.3) fL Plt Count 139 L (182-369) K/mm3 MPV 10.4 (9.4-12.3) fl Neut % (Auto) 84.4 H (34.0-71.1) % Lymph % (Auto) 5.2 L (19.3-51.7) % [place] % (Auto) 8.1 (4.7-12.5) % Eos % (Auto) 1.4 (0.7-5.8) Baso % (Auto) 0.2 (0.1-1.2) % Neut # (Auto) 10.79 H (1.56-6.13) K/mm3 Lymph # (Auto) 0.66 L (1.18-3.74) K/mm3 [place] # (Auto) 1.04 H (0.24-0.36) K/mm3 Eos # (Auto) 0.18 (0.04-0.36) K/mm3 Baso # (Auto) 0.02 (0.01-0.08) K/mm3 Manual Slide Review Abnormal smear APTT 50 H (22-36) SECONDS Sodium 139 (136-145) mEq/L Potassium 5.3 H (3.5-5.1) mEq/L Chloride 106 (98-107) mEq/L Carbon Dioxide 22 (21-32) mEq/L Anion Gap 16.3 H (5-15) BUN 90 H (7-18) mg/dL Creatinine 3.4 H (0.55-1.02) mg/dL Est Cr Clr Drug Dosing 9.69 mL/min Estimated GFR (MDRD) 13 (>60) mL/min BUN/Creatinine Ratio 26.5 H (14-18) Glucose 106 (83-115) mg/dL Calcium 9.8 (8.5-10.1) mg/dL Phosphorus 4.4 (2.6-4.7) mg/dL Magnesium 1.7 L (1.8-2.4) mg/dl Troponin I (0.00-0.056) ng/mL Albumin 3.1 L (3.4-5.0) g/dl 06/21/17 06/21/17 06/21/17 Range/Units 11:10 13:25 20:05 WBC (3.98-10.04) K/mm3 RBC (3.98-5.22) M/mm3 Hgb (11.2-15.7) gm/L Hct (34.1-44.9) % MCV (79.4-94.8) fl MCH (25.6-32.2) pg MCHC (32.2-35.5) g/dl RDW Std Deviation (36.4-46.3) fL Plt Count (182-369) K/mm3 MPV (9.4-12.3) fl Neut % (Auto) (34.0-71.1) % Lymph % (Auto) (19.3-51.7) % [place] % (Auto) (4.7-12.5) % Eos % (Auto) (0.7-5.8) Baso % (Auto) (0.1-1.2) % Neut # (Auto) (1.56-6.13) K/mm3 Lymph # (Auto) (1.18-3.74) K/mm3 [place] # (Auto) (0.24-0.36) K/mm3 Eos # (Auto) (0.04-0.36) K/mm3 Baso # (Auto) (0.01-0.08) K/mm3 Manual Slide Review APTT 38 H 42 H (22-36) SECONDS Sodium (136-145) mEq/L Potassium (3.5-5.1) mEq/L Chloride (98-107) mEq/L Carbon Dioxide (21-32) mEq/L Anion Gap (5-15) BUN (7-18) mg/dL Creatinine (0.55-1.02) mg/dL Est Cr Clr Drug Dosing mL/min Estimated GFR (MDRD) (>60) mL/min BUN/Creatinine Ratio (14-18) Glucose (83-115) mg/dL Calcium (8.5-10.1) mg/dL Phosphorus (2.6-4.7) mg/dL Magnesium (1.8-2.4) mg/dl Troponin I 0.121 H* (0.00-0.056) ng/mL Albumin (3.4-5.0) g/dl 06/22/17 06/22/17 06/22/17 Range/Units 02:50 02:50 02:50 WBC 14.98 H (3.98-10.04) K/mm3 RBC 3.58 L (3.98-5.22) M/mm3 Hgb 12.2 (11.2-15.7) gm/L Hct 36.8 (34.1-44.9) % MCV 102.8 H (79.4-94.8) fl MCH 34.1 H (25.6-32.2) pg MCHC 33.2 (32.2-35.5) g/dl RDW Std Deviation 70.9 H (36.4-46.3) fL Plt Count 146 L (182-369) K/mm3 MPV 10.8 (9.4-12.3) fl Neut % (Auto) 86.5 H (34.0-71.1) % Lymph % (Auto) 4.2 L (19.3-51.7) % [place] % (Auto) 7.4 (4.7-12.5) % Eos % (Auto) 1.2 (0.7-5.8) Baso % (Auto) 0.1 (0.1-1.2) % Neut # (Auto) 12.95 H (1.56-6.13) K/mm3 Lymph # (Auto) 0.63 L (1.18-3.74) K/mm3 [place] # (Auto) 1.11 H (0.24-0.36) K/mm3 Eos # (Auto) 0.18 (0.04-0.36) K/mm3 Baso # (Auto) 0.02 (0.01-0.08) K/mm3 Manual Slide Review Abnormal smear APTT 70 H (22-36) SECONDS Sodium 136 (136-145) mEq/L Potassium 5.1 (3.5-5.1) mEq/L Chloride 103 (98-107) mEq/L Carbon Dioxide 22 (21-32) mEq/L Anion Gap 16.1 H (5-15) BUN 72 H (7-18) mg/dL Creatinine 3.1 H (0.55-1.02) mg/dL Est Cr Clr Drug Dosing 10.63 mL/min Estimated GFR (MDRD) 14 (>60) mL/min BUN/Creatinine Ratio 23.2 H (14-18) Glucose 189 H (83-115) mg/dL Calcium 9.4 (8.5-10.1) mg/dL Phosphorus 3.2 (2.6-4.7) mg/dL Magnesium 1.4 L (1.8-2.4) mg/dl Troponin I (0.00-0.056) ng/mL Albumin 3.2 L (3.4-5.0) g/dl Med Orders - Current: Current Medications Acetaminophen (Tylenol) 650 mg PO Q4H PRN PRN Reason: Pain (Mild 1-3)/fever Hydrocodone Bitart/Acetaminophen ([place] 325-5 Mg) 1 tab PO Q4H PRN PRN Reason: Pain (moderate 4-6) Albuterol (Proventil Hfa) 0 gm INH ASDIRECTED PRN PRN Reason: Shortness of Breath Albuterol/Ipratropium (Duoneb 3.0-0.5 Mg/3 Ml) 3 ml NEB Q4H PRN PRN Reason: Shortness Of Breath/wheezing Last Admin: 06/22/17 01:23 Dose: 3 ml Aspirin (Aspirin) 81 mg PO DAILY [facility] Last Admin: 06/21/17 12:32 Dose: Not Given Bisacodyl (Dulcolax) 5 mg PO DAILY PRN PRN Reason: Constipation Diltiazem HCl (Cardizem) 60 mg PO BID [facility] Last Admin: 06/21/17 21:16 Dose: 60 mg Docusate Sodium (Colace) 100 mg PO BID PRN PRN Reason: Constipation Fluconazole (Diflucan) 100 mg PO DAILY [facility] Stop: 06/22/17 09:01 Last Admin: 06/21/17 09:56 Dose: 100 mg Folic Acid (Folic Acid) 1 mg PO DAILY [facility] Last Admin: 06/21/17 09:56 Dose: 1 mg Heparin Sodium (Porcine) (Heparin Sodium) 5,000 units SUBCUT Q12HR [facility] Hydralazine HCl (Apresoline) 10 mg IVPUSH Q4H PRN PRN Reason: Hypertension Promethazine HCl 6.25 mg/ (Sodium Chloride) 50.25 mls @ 100 mls/hr IV Q6H PRN PRN Reason: Nausea/Vomiting Azithromycin 500 mg/ Sodium (Chloride) 250 mls @ 250 mls/hr IV Q24H [facility] Last Admin: 06/22/17 06:09 Dose: 250 mls/hr Ceftriaxone Sodium 1 gm/ (Sodium Chloride) 100 mls @ 200 mls/hr IV Q24H [facility] Levothyroxine Sodium (Synthroid) 100 mcg PO ACBREAKFAST [facility] Last Admin: 06/22/17 06:09 Dose: 100 mcg Lorazepam (Ativan) 0.25 mg IV Q6H PRN PRN Reason: Anxiety Magnesium Hydroxide (Milk Of Magnesia) 30 ml PO Q12H PRN PRN Reason: Constipation Magnesium Sulfate (Pharmacy To Dose - Magnesium Replacement) 1 dose .XX ASDIRECTED [facility] Metoprolol Succinate (Toprol Xl) 50 mg PO DAILY [facility] Last Admin: 06/21/17 10:45 Dose: 50 mg Metoprolol Tartrate (Lopressor) 5 mg IVPUSH Q4H PRN PRN Reason: Tachycardia Last Admin: 06/22/17 03:22 Dose: 5 mg Mometasone Furoate/Formoterol Fumar (Dulera 200-5 Mcg) 2 puff IH DAILY [facility] Last Admin: 06/21/17 09:23 Dose: 2 puff Multivitamins (Thera) 1 each PO DAILY [facility] Last Admin: 06/21/17 09:56 Dose: 1 each Ondansetron HCl (Zofran) 4 mg IV Q6H PRN PRN Reason: Nausea/Vomiting Polyethylene Glycol (Miralax) 17 gm PO DAILY PRN PRN Reason: Constipation Potassium Chloride (Pharmacy To Dose - Potassium Replacement) 1 dose .XX ASDIRECTED [facility] Senna/Docusate Sodium (Senna Plus) 1 tab PO BID PRN PRN Reason: Constipation Simvastatin (Zocor) 20 mg PO BEDTIME [facility] Last Admin: 06/21/17 21:15 Dose: 20 mg Sodium Chloride (Saline Flush) 10 ml FLUSH ASDIRECTED PRN PRN Reason: Keep Vein Open Last Admin: 06/19/17 22:01 Dose: 10 ml Temazepam (Restoril) 7.5 mg PO BEDTIME PRN PRN Reason: Sleep Tiotropium [place] (Spiriva Handihaler) 18 mcg INH DAILY DANIEL Last Admin: 06/21/17 09:23 Dose: 1 puff Tramadol HCl (Ultram) 50 mg PO BID PRN PRN Reason: Pain Discontinued Medications Albuterol (Proventil Neb Soln) 2.5 mg NEB ONETIME ONE Stop: 06/19/17 22:54 Last Admin: 06/19/17 23:10 Dose: 2.5 mg Albuterol (Proventil Neb Soln) 2.5 mg NEB ONETIME ONE Stop: 06/19/17 22:55 Last Admin: 06/19/17 23:10 Dose: 2.5 mg Albuterol (Proventil Neb Soln) 2.5 mg NEB ONETIME ONE Stop: 06/19/17 22:56 Last Admin: 06/19/17 23:11 Dose: 2.5 mg Albuterol/Ipratropium (Duoneb 3.0-0.5 Mg/3 Ml) 3 ml INH Q4H PRN PRN Reason: Shortness of Breath Aspirin (Ecotrin) 325 mg PO ONETIME ONE Stop: 06/20/17 12:37 Last Admin: 06/20/17 14:32 Dose: Not Given Aspirin (Ecotrin) 325 mg PO ONETIME ONE Stop: 06/20/17 14:32 Last Admin: 06/20/17 14:38 Dose: 325 mg Bumetanide (Bumex) 1.5 mg IVPUSH ONETIME ONE Stop: 06/22/17 01:45 Last Admin: 06/22/17 01:53 Dose: 1.5 mg Calcium Gluconate (Calcium Gluconate) 1 gm IVPUSH ONETIME ONE Stop: 06/19/17 22:56 Last Admin: 06/19/17 23:06 Dose: 1 gm Heparin Sodium (Porcine) (Heparin Sodium) 4,000 units IVPUSH .BOLUS ONE Stop: 06/20/17 10:51 Last Admin: 06/20/17 11:45 Dose: Not Given Heparin Sodium (Porcine) (Heparin Sodium) 4,000 units IVPUSH .BOLUS ONE Stop: 06/20/17 11:16 Last Admin: 06/20/17 11:45 Dose: 4,000 units Heparin Sodium (Porcine) (Heparin Sodium) 2,000 units IVPUSH .BOLUS ONE Stop: 06/20/17 20:58 Last Admin: 06/20/17 21:18 Dose: Not Given Heparin Sodium (Porcine) (Heparin Sodium) Confirm Administered Dose 5,000 units .ROUTE .STK-MED ONE Stop: 06/20/17 21:07 Last Admin: 06/20/17 21:17 Dose: 2,000 units Heparin Sodium (Porcine) (Heparin Sodium) 1,000 units IVPUSH .BOLUS ONE Stop: 06/21/17 15:12 Last Admin: 06/21/17 15:34 Dose: 1,000 units Heparin Sodium (Porcine) (Heparin Sodium) 1,000 units IVPUSH ONETIME ONE Stop: 06/21/17 22:23 Last Admin: 06/21/17 22:56 Dose: 1,000 units Sodium Chloride (Normal Saline) 1,000 mls @ 999 mls/hr IV ONETIME ONE Stop: 06/19/17 22:55 Last Admin: 06/19/17 22:02 Dose: 999 mls/hr Sodium Chloride (Normal Saline) 1,000 mls @ 50 mls/hr IV ASDIRECTED DANIEL Stop: 06/20/17 06:00 Last Admin: 06/20/17 01:20 Dose: 50 mls/hr Sodium Chloride (Normal Saline) 1,000 mls @ 25 mls/hr IV ASDIRECTED [facility] Heparin Sodium/Dextrose (Heparin 25,000 Units In D5w 500 Ml) 25,000 units in 500 mls @ 9 mls/hr IV TITRATE DANIEL; 6 UNITS/KG/HR PRN Reason: Protocol Last Admin: 06/20/17 14:35 Dose: 9 mls/hr Magnesium Oxide (Magnesium Oxide) 400 mg PO ONETIME ONE Stop: 06/21/17 10:01 Last Admin: 06/21/17 09:56 Dose: 400 mg Metoprolol Succinate (Toprol Xl) 25 mg PO DAILY [facility] Last Admin: 06/20/17 08:53 Dose: 25 mg Non-Formulary Medication (Fluticasone/Salmeterol) 1 puff INH ASDIRECTED PRN PRN Reason: Shortness of Breath Prednisone (Prednisone) 10 mg PO DAILY [facility] Last Admin: 06/20/17 08:51 Dose: 10 mg Simvastatin (Zocor) 10 mg PO BEDTIME DANIEL Sodium Bicarbonate (Sodium Bicarbonate 8.4%) 50 meq IVPUSH ONETIME ONE Stop: 06/19/17 22:58 Last Admin: 06/19/17 23:06 Dose: 50 meq Sodium Polystyrene Sulfonate (Kayexalate) 15 gm PO ONETIME ONE Stop: 06/19/17 22:57 Last Admin: 06/19/17 23:06 Dose: 15 gm Sodium Polystyrene Sulfonate (Kayexalate) 45 gm RECTAL NOW ONE Stop: 06/20/17 00:46 Last Admin: 06/20/17 01:34 Dose: 45 gm Sodium Polystyrene Sulfonate (Kayexalate) 30 gm PO NOW ONE Stop: 06/21/17 11:31 Last Admin: 06/21/17 12:31 Dose: 30 gm - Exam Quality Assessment: Supplemental Oxygen General: Alert, Oriented, Cooperative, No Acute Distress HEENT: Pupils Equal, Pupils Reactive, EOMI, Mucous Membr. Moist/[place] Neck: Supple, Trachea Midline, No JVD Lungs: Normal Respiratory Effort, Decreased Breath Sounds, Crackles, Rhonchi Cardiovascular: Regular Rate, Regular Rhythm GI/Abdominal Exam: Normal Bowel Sounds, Soft, Non-Tender, No Organomegaly, No Distention, No Abnormal Bruit, No Mass (Female) Exam: Deferred Back Exam: Normal Inspection, Decreased Range of Motion Extremities: Normal Inspection, Normal Range of Motion, Non-Tender, No Pedal Edema, Normal Capillary Refill Peripheral Pulses: 2+: Dorsalis Pedis (L), Dorsalis Pedis (R) Skin: Warm, Dry, Intact Neurological: No New Focal Deficit Psy/Mental Status: Alert, Normal Affect, Normal Mood - Problem List Review Problem List Initiated/Reviewed/Updated: Yes - My Orders Last 24 Hours: My Active Orders 06/21/17 22:26 Communication Order [RC] ROUTINE 06/22/17 01:43 Chest 1V Frontal [CR] Stat 06/22/17 05:25 Incentive Spirometry [RT Incentive Spirometry] [RC] ASDIRECTED 06/22/17 06:00 Azithromycin [Zithromax] 500 mg Sodium Chloride 0.9% [Normal Saline] 250 ml IV Q24H 06/22/17 08:00 cefTRIAXone [Rocephin] 1 gm Sodium Chloride 0.9% [Normal Saline] 100 ml IV Q24H 06/22/17 09:00 Heparin Sodium 5,000 units SUBCUT Q12HR 06/23/17 05:11 CBC WITH AUTO DIFF [HEME] AM MAGNESIUM [CHEM] AM RENAL FUNCTION PANEL,RFP [CHEM] AM - Plan Plan:: Assessment/Plan: Acute: S/p Respiratory Distress - She is now much better respiratory jacome - CT scan report reads pneumonia at the left lung base. Emphysema and chronic interstitial lung disease - Routine RT care, Diuresis and IV Antibiotics Pneumonia-HCAP - IV Azithromycin/Rocephin - Sputum Cx/Sx; Mycoplasma and Strep pneumoniae Ag test - Bronchodilators and Decongestant - Continue IS as directed Hypotension - Hold BP meds - Midodrine 5 mg po TID x3 doses only - Prednisone was stopped; will resume it MIMI on CKD -- GFR 10-->13 today, up from 9 on admission, improving but very slow - Baseline Cr is 2.2-2.7; 4.7 on admission; 4.3--> 3.4 today; Follows with Nephrology, Dr. Perez - eGFR is 9-->10-->; Stage 5 at this point, slow improvement - Abnormal e-lytes: CO2 19, AG 18.5, BUN 109, Ca 10.6, Na 135 on admit - Gentle hydration -- 25cc/hr - Renal U/S r/o Obstructive Uropathy 1. Echogenic renal cortices. Slightly elevated resistivity indices. Findings felt compatible with nonspecific medical renal disease. 2. Minimal postvoid residual which is incidental 3. No additional findings seen on renal ultrasound study Leukocytosis, improved to 14.56 -->12.78--> 14.98 today - She was on oral Prednison 20 mg po daily for Psoriasis; will resume it - Continue to monitor HLD - Triglycerides 73, Total cholesterol 231, LDL 105, HDL 96 - On Statin and AHA diet Hypomagnesemia - Mg 1.7--> 1.4 - Pharmacy to monitor and replete Resolved: NSTEMI--- CKMB and Troponin both elevated x 2 readings - Received heparin gtt IV for treatment - EKG without ST segment changes, consistent with NSTEMI - Recommend medical management only since she is DNR/DNI--Discussed with patient possibility of transfer to [place] for Cardiology eval if repeat enzymes higher. She wishes to think this over until 1300, next cardiac markers due and readdress, she will speak to her family and decide. -she decided against - Core measures: ASA started - patient refused due to prior visits with Dr. Perez; Metoprolol dose increased; ACEI- contraindicated d/t CKD/ARF; start statin and check lipid panel Hyperkalemia - K 6.5--> 5.1 - Likely 2/2 MIMI - Received NaHCOS, Albuterol, Ca+ Gluconate and Kayexalate in ED; repeat kayexalate yesterday. More Kayexalate today. - Telemetry Anemia- likely acute on chronic due to CKD, improved - Hgb 10.7 -->12.2 Chronic: HTN HLD COPD- oxygen dependent at home at 2L/N; ex smoker- quit in 1993 CKD Stage 4 OA Hypothyroidism- TSH WNL at 3.261 Psoriasis-on MTX and prednisone Hx tobacco use- quit in 1993 Plan: She looks more worse than yesterday clinically; but respiratory jacome, she is better Continue current treatment Routine AM labs Moderate Sepsis Risk Blood and Sputum cultures Continue PT/OT Additional orders as above SW/CM for d/c planning- Patient elects medical management of Non-STEMI. Expect 2 -3 more days of treatment, possibly more. Code status: DNR/DNI LOS anticipate > 96 hrs due to new diagnosis of HCAP and hypotension.
[2017-06-22] MEDS: cefTRIAXone 1 GM in Sodium Chloride 0.9% 100 ML IV SCH (08:47)
[2017-06-22] MEDS: Heparin Sodium 5,000 Units/ML Vial SUBCUT SCH ×2 (08:47→21:22)
[2017-06-22] MEDS: Multivitamins,Therapeutic Tab PO SCH (08:48)
[2017-06-22] MEDS: Folic Acid 1 MG Tab PO SCH (08:48)
[2017-06-22] MEDS: Fluconazole 100 MG Tab PO SCH (08:48)
[2017-06-22] MEDS: Tiotropium Inhaler 18 MCG Inhalation Powder Cap Kit of 5 INH SCH (09:55)
[2017-06-22] MEDS: Formoterol/Mometasone 200-5 MCG 8.8 GM Inhaler IH SCH (09:55)
[2017-06-22] MEDS ORDERED: Magnesium Sulfate/Water 4 GM in Premix Bag 1 BAG IV ONE (10:00)
[2017-06-22] MEDS: Midodrine 5 MG Tab PO SCH ×3 (10:17→21:22)
[2017-06-22] MEDS ORDERED: Morphine 2 MG/ML Syringe IVPUSH ONE (11:12)
[2017-06-22] MEDS: Aspirin 81 MG Tab.Chew PO SCH (11:43)
[2017-06-22] MEDS: Diltiazem IR 60 MG Tab PO SCH ×2 (11:43→21:22)
[2017-06-22] MEDS: Metoprolol Succinate 50 MG Tab.ER PO SCH (11:43)
[2017-06-22] MEDS: Docusate Sodium 100 MG Cap PO PRN (12:47)
[2017-06-22] MEDS: Simvastatin 20 MG Tab PO SCH (21:22)
--- NOTE | 2017-06-23 05:46 | PCM.PN ---
- General Info Date of Service: 06/23/17 Admission Dx/Problem (Free Text): Hyperkalemia Subjective Update: Follow Up Functional Status: Reports: Pain Controlled, Tolerating Diet, Ambulating, Urinating. Denies: New Symptoms - Review of Systems General: Denies: Fever, Weakness, Fatigue, Malaise, Chills HEENT: Reports: No Symptoms Pulmonary: Reports: Cough. Denies: Shortness of Breath Cardiovascular: Reports: No Symptoms. Denies: Chest Pain, Dyspnea on Exertion Gastrointestinal: Denies: Abdominal Pain, Nausea, Vomiting Genitourinary: Reports: No Symptoms Musculoskeletal: Reports: No Symptoms Skin: Denies: Cyanosis, Pallor, Diaphoresis Neurological: Denies: Confusion, Difficulty Walking, Weakness, Gait Disturbance Psychiatric: Denies: Confusion, Anxiety, Agitation, Hallucinations Systems Review Comment:: No overnight issues. She slept good last night. She feels better. She reports no new complaints. WBC improves and she remains afebrile. - Patient Data Vitals - Most Recent: Last Vital Signs Temp 37.0 C 06/23/17 03:19 Pulse 84 06/23/17 03:19 Resp 20 06/23/17 03:19 BP 103/83 06/23/17 03:19 Pulse Ox 96 06/23/17 03:19 Weight - Most Recent: 77.474 kg I&O - Last 24 Hours: Intake & Output 06/22/17 06/22/17 06/23/17 14:59 22:59 06:59 Intake Total 360 1050 500 Output Total 600 550 Balance 360 450 -50 Lab Results Last 24 Hours: Laboratory Results - last 24 hr 06/22/17 06/22/17 Range/Units 02:50 17:25 C-Reactive Protein 20.9 H* (<1.0) mg/dL Mycoplasma pneumon IgM Negative (NEGATIVE) Med Orders - Current: Current Medications Acetaminophen (Tylenol) 650 mg PO Q4H PRN PRN Reason: Pain (Mild 1-3)/fever Hydrocodone Bitart/Acetaminophen (Olar 325-5 Mg) 1 tab PO Q4H PRN PRN Reason: Pain (moderate 4-6) Albuterol (Proventil Hfa) 0 gm INH ASDIRECTED PRN PRN Reason: Shortness of Breath Albuterol/Ipratropium (Duoneb 3.0-0.5 Mg/3 Ml) 3 ml NEB Q4H PRN PRN Reason: Shortness Of Breath/wheezing Last Admin: 06/22/17 01:23 Dose: 3 ml Aspirin (Aspirin) 81 mg PO DAILY [facility] Last Admin: 06/22/17 11:43 Dose: Not Given Bisacodyl (Dulcolax) 5 mg PO DAILY PRN PRN Reason: Constipation Diltiazem HCl (Cardizem) 60 mg PO BID [facility] Last Admin: 06/22/17 21:22 Dose: Not Given Docusate Sodium (Colace) 100 mg PO BID PRN PRN Reason: Constipation Last Admin: 06/22/17 12:47 Dose: 100 mg Folic Acid (Folic Acid) 1 mg PO DAILY [facility] Last Admin: 06/22/17 08:48 Dose: 1 mg Heparin Sodium (Porcine) (Heparin Sodium) 5,000 units SUBCUT Q12HR [facility] Last Admin: 06/22/17 21:22 Dose: 5,000 units Hydralazine HCl (Apresoline) 10 mg IVPUSH Q4H PRN PRN Reason: Hypertension Promethazine HCl 6.25 mg/ (Sodium Chloride) 50.25 mls @ 100 mls/hr IV Q6H PRN PRN Reason: Nausea/Vomiting Azithromycin 500 mg/ Sodium (Chloride) 250 mls @ 250 mls/hr IV Q24H [facility] Last Admin: 06/22/17 06:09 Dose: 250 mls/hr Ceftriaxone Sodium 1 gm/ (Sodium Chloride) 100 mls @ 200 mls/hr IV Q24H [facility] Last Admin: 06/22/17 08:47 Dose: 200 mls/hr Levothyroxine Sodium (Synthroid) 100 mcg PO ACBREAKFAST [facility] Last Admin: 06/22/17 06:09 Dose: 100 mcg Lorazepam (Ativan) 0.25 mg IV Q6H PRN PRN Reason: Anxiety Magnesium Hydroxide (Milk Of Magnesia) 30 ml PO Q12H PRN PRN Reason: Constipation Magnesium Sulfate (Pharmacy To Dose - Magnesium Replacement) 1 dose .XX ASDIRECTED [facility] Methotrexate (Methotrexate) 5 mg PO Mo@0900 [facility] Metoprolol Succinate (Toprol Xl) 50 mg PO DAILY [facility] Last Admin: 06/22/17 11:43 Dose: Not Given Metoprolol Tartrate (Lopressor) 5 mg IVPUSH Q4H PRN PRN Reason: Tachycardia Last Admin: 06/22/17 03:22 Dose: 5 mg Mometasone Furoate/Formoterol Fumar (Dulera 200-5 Mcg) 2 puff IH DAILY [facility] Last Admin: 06/22/17 09:55 Dose: 2 puff Multivitamins (Thera) 1 each PO DAILY [facility] Last Admin: 06/22/17 08:48 Dose: 1 each Ondansetron HCl (Zofran) 4 mg IV Q6H PRN PRN Reason: Nausea/Vomiting Polyethylene Glycol (Miralax) 17 gm PO DAILY PRN PRN Reason: Constipation Potassium Chloride (Pharmacy To Dose - Potassium Replacement) 1 dose .XX ASDIRECTED [facility] Prednisone (Prednisone) 20 mg PO WITHBREAKFAST [facility] Senna/Docusate Sodium (Senna Plus) 1 tab PO BID PRN PRN Reason: Constipation Simvastatin (Zocor) 20 mg PO BEDTIME [facility] Last Admin: 06/22/17 21:22 Dose: 20 mg Sodium Chloride (Saline Flush) 10 ml FLUSH ASDIRECTED PRN PRN Reason: Keep Vein Open Last Admin: 06/19/17 22:01 Dose: 10 ml Temazepam (Restoril) 7.5 mg PO BEDTIME PRN PRN Reason: Sleep Tiotropium [place] (Spiriva Handihaler) 18 mcg INH DAILY [facility] Last Admin: 06/22/17 09:55 Dose: 1 puff Tramadol HCl (Ultram) 50 mg PO BID PRN PRN Reason: Pain Discontinued Medications Albuterol (Proventil Neb Soln) 2.5 mg NEB ONETIME ONE Stop: 06/19/17 22:54 Last Admin: 06/19/17 23:10 Dose: 2.5 mg Albuterol (Proventil Neb Soln) 2.5 mg NEB ONETIME ONE Stop: 06/19/17 22:55 Last Admin: 06/19/17 23:10 Dose: 2.5 mg Albuterol (Proventil Neb Soln) 2.5 mg NEB ONETIME ONE Stop: 06/19/17 22:56 Last Admin: 06/19/17 23:11 Dose: 2.5 mg Albuterol/Ipratropium (Duoneb 3.0-0.5 Mg/3 Ml) 3 ml INH Q4H PRN PRN Reason: Shortness of Breath Aspirin (Ecotrin) 325 mg PO ONETIME ONE Stop: 06/20/17 12:37 Last Admin: 06/20/17 14:32 Dose: Not Given Aspirin (Ecotrin) 325 mg PO ONETIME ONE Stop: 06/20/17 14:32 Last Admin: 06/20/17 14:38 Dose: 325 mg Bumetanide (Bumex) 1.5 mg IVPUSH ONETIME ONE Stop: 06/22/17 01:45 Last Admin: 06/22/17 01:53 Dose: 1.5 mg Calcium Gluconate (Calcium Gluconate) 1 gm IVPUSH ONETIME ONE Stop: 06/19/17 22:56 Last Admin: 06/19/17 23:06 Dose: 1 gm Fluconazole (Diflucan) 100 mg PO DAILY [facility] Stop: 06/22/17 09:01 Last Admin: 06/22/17 08:48 Dose: 100 mg Heparin Sodium (Porcine) (Heparin Sodium) 4,000 units IVPUSH .BOLUS ONE Stop: 06/20/17 10:51 Last Admin: 06/20/17 11:45 Dose: Not Given Heparin Sodium (Porcine) (Heparin Sodium) 4,000 units IVPUSH .BOLUS ONE Stop: 06/20/17 11:16 Last Admin: 06/20/17 11:45 Dose: 4,000 units Heparin Sodium (Porcine) (Heparin Sodium) 2,000 units IVPUSH .BOLUS ONE Stop: 06/20/17 20:58 Last Admin: 06/20/17 21:18 Dose: Not Given Heparin Sodium (Porcine) (Heparin Sodium) Confirm Administered Dose 5,000 units .ROUTE .STK-MED ONE Stop: 06/20/17 21:07 Last Admin: 06/20/17 21:17 Dose: 2,000 units Heparin Sodium (Porcine) (Heparin Sodium) 1,000 units IVPUSH .BOLUS ONE Stop: 06/21/17 15:12 Last Admin: 06/21/17 15:34 Dose: 1,000 units Heparin Sodium (Porcine) (Heparin Sodium) 1,000 units IVPUSH ONETIME ONE Stop: 06/21/17 22:23 Last Admin: 06/21/17 22:56 Dose: 1,000 units Sodium Chloride (Normal Saline) 1,000 mls @ 999 mls/hr IV ONETIME ONE Stop: 06/19/17 22:55 Last Admin: 06/19/17 22:02 Dose: 999 mls/hr Sodium Chloride (Normal Saline) 1,000 mls @ 50 mls/hr IV ASDIRECTED DANIEL Stop: 06/20/17 06:00 Last Admin: 06/20/17 01:20 Dose: 50 mls/hr Sodium Chloride (Normal Saline) 1,000 mls @ 25 mls/hr IV ASDIRECTED DANIEL Heparin Sodium/Dextrose (Heparin 25,000 Units In D5w 500 Ml) 25,000 units in 500 mls @ 9 mls/hr IV TITRATE DANIEL; 6 UNITS/KG/HR PRN Reason: Protocol Last Admin: 06/20/17 14:35 Dose: 9 mls/hr Magnesium Sulfate/Dextrose 1 (gm/ Premix) 100 mls @ 100 mls/hr IV ONETIME ONE Stop: 06/22/17 10:23 Last Admin: 06/22/17 10:17 Dose: 100 mls/hr Magnesium Oxide (Magnesium Oxide) 400 mg PO ONETIME ONE Stop: 06/21/17 10:01 Last Admin: 06/21/17 09:56 Dose: 400 mg Metoprolol Succinate (Toprol Xl) 25 mg PO DAILY [facility] Last Admin: 06/20/17 08:53 Dose: 25 mg Midodrine (Midodrine) 5 mg PO TID DANIEL Stop: 06/22/17 21:01 Last Admin: 06/22/17 21:22 Dose: 5 mg Morphine Sulfate (Morphine) 0.25 mg IVPUSH ONETIME ONE Stop: 06/22/17 11:13 Last Admin: 06/22/17 12:15 Dose: 0.25 mg Non-Formulary Medication (Fluticasone/Salmeterol) 1 puff INH ASDIRECTED PRN PRN Reason: Shortness of Breath Prednisone (Prednisone) 10 mg PO DAILY [facility] Last Admin: 06/20/17 08:51 Dose: 10 mg Simvastatin (Zocor) 10 mg PO BEDTIME [facility] Sodium Bicarbonate (Sodium Bicarbonate 8.4%) 50 meq IVPUSH ONETIME ONE Stop: 06/19/17 22:58 Last Admin: 06/19/17 23:06 Dose: 50 meq Sodium Polystyrene Sulfonate (Kayexalate) 15 gm PO ONETIME ONE Stop: 06/19/17 22:57 Last Admin: 06/19/17 23:06 Dose: 15 gm Sodium Polystyrene Sulfonate (Kayexalate) 45 gm RECTAL NOW ONE Stop: 06/20/17 00:46 Last Admin: 06/20/17 01:34 Dose: 45 gm Sodium Polystyrene Sulfonate (Kayexalate) 30 gm PO NOW ONE Stop: 06/21/17 11:31 Last Admin: 06/21/17 12:31 Dose: 30 gm - Exam Quality Assessment: Supplemental Oxygen General: Alert, Oriented, Cooperative, No Acute Distress HEENT: Pupils Equal, Pupils Reactive, EOMI, Mucous Membr. Moist/[place] Neck: Supple, Trachea Midline, No JVD Lungs: Normal Respiratory Effort, Decreased Breath Sounds, Crackles Cardiovascular: Regular Rate, Regular Rhythm GI/Abdominal Exam: Normal Bowel Sounds, Soft, Non-Tender, No Organomegaly, No Distention, No Abnormal Bruit, No Mass (Female) Exam: Products of Conception Back Exam: Normal Inspection, Decreased Range of Motion Extremities: Normal Inspection, Normal Range of Motion, Non-Tender, No Pedal Edema, Normal Capillary Refill Peripheral Pulses: 2+: Dorsalis Pedis (L), Dorsalis Pedis (R) Skin: Warm, Dry, Intact Neurological: No New Focal Deficit Psy/Mental Status: Alert, Normal Affect, Normal Mood - Problem List Review Problem List Initiated/Reviewed/Updated: Yes - My Orders Last 24 Hours: My Active Orders 06/22/17 05:25 Incentive Spirometry [RT Incentive Spirometry] [RC] ASDIRECTED 06/22/17 06:00 Azithromycin [Zithromax] 500 mg Sodium Chloride 0.9% [Normal Saline] 250 ml IV Q24H 06/22/17 06:39 Chest wo Cont [CT] Routine 06/22/17 08:00 cefTRIAXone [Rocephin] 1 gm Sodium Chloride 0.9% [Normal Saline] 100 ml IV Q24H 06/22/17 09:00 Heparin Sodium 5,000 units SUBCUT Q12HR 06/22/17 16:50 CULTURE SPUTUM + SMEAR [RM] Stat 06/22/17 16:55 Blood Culture x2 Reflex Set [OM.PC] Stat 06/22/17 17:55 STREP PNEUMONIAE ANTIGEN [MREF] Stat 06/23/17 05:11 CBC WITH AUTO DIFF [HEME] AM CRP [C-REACTIVE PROTEIN] [CHEM] AM MAGNESIUM [CHEM] AM RENAL FUNCTION PANEL,RFP [CHEM] AM 06/23/17 07:00 predniSONE 20 mg PO WITHBREAKFAST 06/24/17 05:11 CRP [C-REACTIVE PROTEIN] [CHEM] AM 06/24/17 09:00 Methotrexate 5 mg PO Mo@0900 06/25/17 05:11 CRP [C-REACTIVE PROTEIN] [CHEM] AM 06/26/17 05:11 CRP [C-REACTIVE PROTEIN] [CHEM] AM - Plan Plan:: Assessment/Plan: Acute: Pneumonia-HCAP, Marginally improved - Will d/c IV Azithromycin/Rocephin; start IV Zosyn and Vancomycin for pharmacy to renally dose - Sputum, Blood Cultures and Mycoplasma Antigen test all negative - CRP 20.9--> 19.8 - She remains at 5 L on supplemental O2 - Continue Bronchodilators and Decongestant - Continue IS as directed - Added Ez PEP Theraphy to help with respiration Hypotension, Unchanged - Cannot r/o adrenal insufficiency - Hold BP meds - Continue Midodrine 5 mg po TID PRN for BP < 90/60 mmHg - Continue oral steroids; may consider higher dose due stress if no improvement in AM MIMI on CKD -- GFR 10-->13 today, up from 9 on admission, improving but very slow - Baseline Cr is 2.2-2.7; 4.7 on admission; 4.3--> 3.4 today; Follows with Nephrology, Dr. Perez - eGFR is 9-->10-->; Stage 5 at this point, slow improvement - Abnormal e-lytes: CO2 19, AG 18.5, BUN 109, Ca 10.6, Na 135 on admit - Gentle hydration -- 25cc/hr - Renal U/S r/o Obstructive Uropathy 1. Echogenic renal cortices. Slightly elevated resistivity indices. Findings felt compatible with nonspecific medical renal disease. 2. Minimal postvoid residual which is incidental 3. No additional findings seen on renal ultrasound study Leukocytosis, improved to 14.56 -->12.78--> 14.98--> 11.16 today - She is on oral steroid - Continue to monitor Anemia - likely acute on chronic due to CKD and daily blood draws for labs - Hgb 10.7 -->12.2 --> 9.9 - No active bleed HLD - Triglycerides 73, Total cholesterol 231, LDL 105, HDL 96 - On Statin and AHA diet Hypomagnesemia - Mg 1.7--> 1.4 --> 1.7 - Pharmacy to monitor and replete Resolved: NSTEMI--- CKMB and Troponin both elevated x 2 readings - Received heparin gtt IV for treatment - EKG without ST segment changes, consistent with NSTEMI - Recommend medical management only since she is DNR/DNI--Discussed with patient possibility of transfer to [place] for Cardiology eval if repeat enzymes higher. She wishes to think this over until 1300, next cardiac markers due and readdress, she will speak to her family and decide. -she decided against - Core measures: ASA started - patient refused due to prior visits with Dr. Perez; Metoprolol dose increased; ACEI- contraindicated d/t CKD/ARF; start statin and check lipid panel Hyperkalemia - K 6.5--> 5.1 - Likely 2/2 MIMI - Received NaHCOS, Albuterol, Ca+ Gluconate and Kayexalate in ED; repeat kayexalate yesterday. More Kayexalate today. - Telemetry S/p Respiratory Distress - She is now much better respiratory jacome - CT scan report reads pneumonia at the left lung base. Emphysema and chronic interstitial lung disease - Routine RT care, Diuresis and IV Antibiotics Chronic: HTN HLD COPD- oxygen dependent at home at 2L/N; ex smoker- quit in 1993 CKD Stage 4 OA Hypothyroidism- TSH WNL at 3.261 Psoriasis-on MTX and prednisone Hx tobacco use- quit in 1993 Plan: She is much better today than yesterday Continue current treatment Routine AM labs Cortisol level Blood and Sputum cultures- both negative Continue PT/OT/RT Additional orders as above SW/CM for d/c planning Code status: DNR/DNI LOS > 96 hrs due to slow response to treatment. Updated patient's son regarding her clinical progress and prognosis.
[2017-06-23] MEDS: Azithromycin 500 MG in Sodium Chloride 0.9% 250 ML IV SCH (06:04)
[2017-06-23] MEDS: Levothyroxine 100 MCG Tab PO SCH (06:05)
[2017-06-23] MEDS ORDERED: predniSONE 20 MG Tab PO SCH (07:00)
[2017-06-23] MEDS ORDERED: guaiFENesin/Dextromethorphan 100-10 MG/5 ML Soln 5 ML Cup PO PRN (08:26)
[2017-06-23] MEDS ORDERED: Vancomycin 1 GM, Vancomycin 500 MG in Sodium Chloride 0.9% 500 ML IV SCH (08:30)
[2017-06-23] MEDS ORDERED: Piperacillin/Tazobactam 4.5 GM in Sodium Chloride 0.9% 100 ML IV ONE (09:00)
[2017-06-23] MEDS: Diltiazem IR 60 MG Tab PO SCH ×2 (09:41→20:58)
[2017-06-23] MEDS: Heparin Sodium 5,000 Units/ML Vial SUBCUT SCH ×2 (09:41→20:58)
[2017-06-23] MEDS: Multivitamins,Therapeutic Tab PO SCH (09:42)
[2017-06-23] MEDS: Metoprolol Succinate 50 MG Tab.ER PO SCH (09:42)
[2017-06-23] MEDS: Folic Acid 1 MG Tab PO SCH (09:42)
[2017-06-23] MEDS: Aspirin 81 MG Tab.Chew PO SCH (09:43)
[2017-06-23] MEDS: Docusate Sodium 100 MG Cap PO PRN (09:47)
[2017-06-23] MEDS: Tiotropium Inhaler 18 MCG Inhalation Powder Cap Kit of 5 INH SCH (09:49)
[2017-06-23] MEDS: Formoterol/Mometasone 200-5 MCG 8.8 GM Inhaler IH SCH (09:49)
[2017-06-23] MEDS ORDERED: Furosemide 20 MG/2 ML VIAL IVPUSH ONE (10:15)
[2017-06-23] MEDS ORDERED: Magnesium Oxide 400 MG Tab PO ONE (11:00)
[2017-06-23] MEDS ORDERED: Midodrine 5 MG Tab PO STA (13:49)
[2017-06-23] MEDS: cefTRIAXone 1 GM in Sodium Chloride 0.9% 100 ML IV SCH (13:51)
[2017-06-23] MEDS: Piperacillin/Tazobactam 4.5 GM in Sodium Chloride 0.9% 100 ML IV SCH (16:23)
[2017-06-23] MEDS ORDERED: Midodrine 5 MG Tab PO SCH (17:00)
[2017-06-23] MEDS: Simvastatin 20 MG Tab PO SCH (20:55)
[2017-06-24] MEDS: Midodrine 5 MG Tab PO PRN (00:16)
[2017-06-24] MEDS: Hydrocortisone Sodium Succinate 100 MG/2 ML SDV IVPUSH SCH ×4 (00:16→17:40)
[2017-06-24] MEDS ORDERED: Bisacodyl 10 MG Supp RECTAL PRN (01:20)
[2017-06-24] MEDS: Piperacillin/Tazobactam 4.5 GM in Sodium Chloride 0.9% 100 ML IV SCH ×2 (04:02→17:31)
[2017-06-24] MEDS: Levothyroxine 100 MCG Tab PO SCH (06:00)
--- NOTE | 2017-06-24 07:15 | PCM.PN ---
- General Info Date of Service: 06/24/17 Admission Dx/Problem (Free Text): Hyperkalemia Subjective Update: Follow Up Functional Status: Reports: Pain Controlled, Tolerating Diet, Ambulating, Urinating. Denies: New Symptoms - Review of Systems General: Denies: Fever, Weakness, Fatigue, Malaise, Chills HEENT: Reports: No Symptoms Pulmonary: Denies: Shortness of Breath Gastrointestinal: Denies: Abdominal Pain, Nausea, Vomiting Genitourinary: Reports: No Symptoms Musculoskeletal: Reports: No Symptoms Skin: Reports: Cyanosis. Denies: Pallor, Diaphoresis Neurological: Denies: Pre-Existing Deficit, Weakness, Gait Disturbance Psychiatric: Denies: Depression, Anxiety, Agitation, Hallucinations Systems Review Comment:: Overnight she still has issues with low blood pressures. She however reports no symptoms. She feels pretty good and she breaths better. Her leukoctyosis resolved. She remains afebrile and CRP is now down to 15.7. - Patient Data Vitals - Most Recent: Last Vital Signs Temp 36.7 C 06/24/17 03:57 Pulse 74 06/24/17 03:57 Resp 22 H 06/24/17 03:57 BP 94/63 06/24/17 03:57 Pulse Ox 92 L 06/24/17 06:24 Weight - Most Recent: 78.335 kg I&O - Last 24 Hours: Intake & Output 06/23/17 06/24/17 06/24/17 22:59 06:59 14:59 Intake Total 1250 400 Output Total 300 550 Balance 950 -150 Lab Results Last 24 Hours: Laboratory Results - last 24 hr 06/23/17 06/23/17 06/24/17 Range/Units 05:54 05:54 06:20 WBC 8.90 (3.98-10.04) K/mm3 RBC 3.16 L (3.98-5.22) M/mm3 Hgb 10.6 L (11.2-15.7) gm/L Hct 32.7 L (34.1-44.9) % MCV 103.5 H (79.4-94.8) fl MCH 33.5 H (25.6-32.2) pg MCHC 32.4 (32.2-35.5) g/dl RDW Std Deviation 71.0 H (36.4-46.3) fL Plt Count 157 L (182-369) K/mm3 MPV 11.4 (9.4-12.3) fl Manual Slide Review Abnormal smear C-Reactive Protein 19.8 H* (<1.0) mg/dL [place] Results Last 24 Hours: Microbiology 06/22/17 17:45 Aerobic Blood Culture - Preliminary Blood - Venous - Lab Draw NO GROWTH AFTER 1 DAY Anaerobic Blood Culture - Preliminary NO GROWTH AFTER 1 DAY 06/22/17 17:25 Aerobic Blood Culture - Preliminary Blood - Venous NO GROWTH AFTER 1 DAY Anaerobic Blood Culture - Preliminary NO GROWTH AFTER 1 DAY 06/23/17 11:00 Gram Stain - Final Sputum - Expectorated Med Orders - Current: Current Medications Acetaminophen (Tylenol) 650 mg PO Q4H PRN PRN Reason: Pain (Mild 1-3)/fever Hydrocodone Bitart/Acetaminophen ([place] 325-5 Mg) 1 tab PO Q4H PRN PRN Reason: Pain (moderate 4-6) Albuterol (Proventil Hfa) 0 gm INH ASDIRECTED PRN PRN Reason: Shortness of Breath Albuterol/Ipratropium (Duoneb 3.0-0.5 Mg/3 Ml) 3 ml NEB Q4H PRN PRN Reason: Shortness Of Breath/wheezing Last Admin: 06/22/17 01:23 Dose: 3 ml Aspirin (Aspirin) 81 mg PO DAILY [facility] Last Admin: 06/23/17 09:43 Dose: 81 mg Bisacodyl (Dulcolax) 5 mg PO DAILY PRN PRN Reason: Constipation Last Admin: 06/23/17 06:05 Dose: 5 mg Bisacodyl (Dulcolax) 10 mg RECTAL DAILY PRN PRN Reason: Constipation Diltiazem HCl (Cardizem) 60 mg PO BID [facility] Last Admin: 06/23/17 20:58 Dose: Not Given Docusate Sodium (Colace) 100 mg PO BID PRN PRN Reason: Constipation Last Admin: 06/23/17 09:47 Dose: 100 mg Folic Acid (Folic Acid) 1 mg PO DAILY [facility] Last Admin: 06/23/17 09:42 Dose: 1 mg Guaifenesin/Phenylephrine HCl (Robitussin Dm) 10 ml PO Q6H PRN PRN Reason: Cough Last Admin: 06/23/17 09:41 Dose: 10 ml Heparin Sodium (Porcine) (Heparin Sodium) 5,000 units SUBCUT Q12HR [facility] Last Admin: 06/23/17 20:58 Dose: 5,000 units Hydralazine HCl (Apresoline) 10 mg IVPUSH Q4H PRN PRN Reason: Hypertension Hydrocortisone Sodium Succinate (Solu-Cortef) 100 mg IVPUSH Q6H [facility] Last Admin: 06/24/17 06:00 Dose: 100 mg Promethazine HCl 6.25 mg/ (Sodium Chloride) 50.25 mls @ 100 mls/hr IV Q6H PRN PRN Reason: Nausea/Vomiting Piperacillin Sod/Tazobactam (Sod 4.5 gm/ Sodium Chloride) 100 mls @ 25 mls/hr IV Q12H [facility] Last Admin: 06/24/17 04:02 Dose: 25 mls/hr Levothyroxine Sodium (Synthroid) 100 mcg PO ACBREAKFAST [facility] Last Admin: 06/24/17 06:00 Dose: 100 mcg Lorazepam (Ativan) 0.25 mg IV Q6H PRN PRN Reason: Anxiety Magnesium Hydroxide (Milk Of Magnesia) 30 ml PO Q12H PRN PRN Reason: Constipation Magnesium Sulfate (Pharmacy To Dose - Magnesium Replacement) 1 dose .XX ASDIRECTED [facility] Methotrexate (Methotrexate) 5 mg PO Mo@0900 [facility] Metoprolol Succinate (Toprol Xl) 50 mg PO DAILY [facility] Last Admin: 06/23/17 09:42 Dose: 50 mg Metoprolol Tartrate (Lopressor) 5 mg IVPUSH Q4H PRN PRN Reason: Tachycardia Last Admin: 06/22/17 03:22 Dose: 5 mg Midodrine (Midodrine) 5 mg PO Q6H PRN PRN Reason: Hypotension Last Admin: 06/24/17 00:16 Dose: 5 mg Mometasone Furoate/Formoterol Fumar (Dulera 200-5 Mcg) 2 puff IH DAILY [facility] Last Admin: 06/23/17 09:49 Dose: 2 puff Multivitamins (Thera) 1 each PO DAILY [facility] Last Admin: 06/23/17 09:42 Dose: 1 each Ondansetron HCl (Zofran) 4 mg IV Q6H PRN PRN Reason: Nausea/Vomiting Polyethylene Glycol (Miralax) 17 gm PO DAILY PRN PRN Reason: Constipation Last Admin: 06/23/17 09:47 Dose: 17 gm Potassium Chloride (Pharmacy To Dose - Potassium Replacement) 1 dose .XX ASDIRECTED [facility] Senna/Docusate Sodium (Senna Plus) 1 tab PO BID PRN PRN Reason: Constipation Simvastatin (Zocor) 20 mg PO BEDTIME [facility] Last Admin: 06/23/17 20:55 Dose: 20 mg Sodium Chloride (Saline Flush) 10 ml FLUSH ASDIRECTED PRN PRN Reason: Keep Vein Open Last Admin: 06/19/17 22:01 Dose: 10 ml Temazepam (Restoril) 7.5 mg PO BEDTIME PRN PRN Reason: Sleep Tiotropium [place] (Spiriva Handihaler) 18 mcg INH DAILY [facility] Last Admin: 06/23/17 09:49 Dose: 1 ampule Tramadol HCl (Ultram) 50 mg PO BID PRN PRN Reason: Pain Vancomycin HCl (Pharmacy To Dose - Vancomycin) 0 dose .XX ASDIRECTED PRN PRN Reason: RX TO DOSE VANCOMYCIN Discontinued Medications Albuterol (Proventil Neb Soln) 2.5 mg NEB ONETIME ONE Stop: 06/19/17 22:54 Last Admin: 06/19/17 23:10 Dose: 2.5 mg Albuterol (Proventil Neb Soln) 2.5 mg NEB ONETIME ONE Stop: 06/19/17 22:55 Last Admin: 06/19/17 23:10 Dose: 2.5 mg Albuterol (Proventil Neb Soln) 2.5 mg NEB ONETIME ONE Stop: 06/19/17 22:56 Last Admin: 06/19/17 23:11 Dose: 2.5 mg Albuterol/Ipratropium (Duoneb 3.0-0.5 Mg/3 Ml) 3 ml INH Q4H PRN PRN Reason: Shortness of Breath Aspirin (Ecotrin) 325 mg PO ONETIME ONE Stop: 06/20/17 12:37 Last Admin: 06/20/17 14:32 Dose: Not Given Aspirin (Ecotrin) 325 mg PO ONETIME ONE Stop: 06/20/17 14:32 Last Admin: 06/20/17 14:38 Dose: 325 mg Bumetanide (Bumex) 1.5 mg IVPUSH ONETIME ONE Stop: 06/22/17 01:45 Last Admin: 06/22/17 01:53 Dose: 1.5 mg Calcium Gluconate (Calcium Gluconate) 1 gm IVPUSH ONETIME ONE Stop: 06/19/17 22:56 Last Admin: 06/19/17 23:06 Dose: 1 gm Fluconazole (Diflucan) 100 mg PO DAILY [facility] Stop: 06/22/17 09:01 Last Admin: 06/22/17 08:48 Dose: 100 mg Furosemide (Lasix) 10 mg IVPUSH NOW ONE Stop: 06/23/17 10:16 Last Admin: 06/23/17 10:52 Dose: 10 mg Heparin Sodium (Porcine) (Heparin Sodium) 4,000 units IVPUSH .BOLUS ONE Stop: 06/20/17 10:51 Last Admin: 06/20/17 11:45 Dose: Not Given Heparin Sodium (Porcine) (Heparin Sodium) 4,000 units IVPUSH .BOLUS ONE Stop: 06/20/17 11:16 Last Admin: 06/20/17 11:45 Dose: 4,000 units Heparin Sodium (Porcine) (Heparin Sodium) 2,000 units IVPUSH .BOLUS ONE Stop: 06/20/17 20:58 Last Admin: 06/20/17 21:18 Dose: Not Given Heparin Sodium (Porcine) (Heparin Sodium) Confirm Administered Dose 5,000 units .ROUTE .STK-MED ONE Stop: 06/20/17 21:07 Last Admin: 06/20/17 21:17 Dose: 2,000 units Heparin Sodium (Porcine) (Heparin Sodium) 1,000 units IVPUSH .BOLUS ONE Stop: 06/21/17 15:12 Last Admin: 06/21/17 15:34 Dose: 1,000 units Heparin Sodium (Porcine) (Heparin Sodium) 1,000 units IVPUSH ONETIME ONE Stop: 06/21/17 22:23 Last Admin: 06/21/17 22:56 Dose: 1,000 units Sodium Chloride (Normal Saline) 1,000 mls @ 999 mls/hr IV ONETIME ONE Stop: 06/19/17 22:55 Last Admin: 06/19/17 22:02 Dose: 999 mls/hr Sodium Chloride (Normal Saline) 1,000 mls @ 50 mls/hr IV ASDIRECTED [facility] Stop: 06/20/17 06:00 Last Admin: 06/20/17 01:20 Dose: 50 mls/hr Sodium Chloride (Normal Saline) 1,000 mls @ 25 mls/hr IV ASDIRECTED [facility] Heparin Sodium/Dextrose (Heparin 25,000 Units In D5w 500 Ml) 25,000 units in 500 mls @ 9 mls/hr IV TITRATE [facility]; 6 UNITS/KG/HR PRN Reason: Protocol Last Admin: 06/20/17 14:35 Dose: 9 mls/hr Azithromycin 500 mg/ Sodium (Chloride) 250 mls @ 250 mls/hr IV Q24H [facility] Last Admin: 06/23/17 06:04 Dose: 250 mls/hr Ceftriaxone Sodium 1 gm/ (Sodium Chloride) 100 mls @ 200 mls/hr IV Q24H [facility] Last Admin: 06/23/17 13:51 Dose: Not Given Magnesium Sulfate/Dextrose 1 (gm/ Premix) 100 mls @ 100 mls/hr IV ONETIME ONE Stop: 06/22/17 10:23 Last Admin: 06/22/17 10:17 Dose: 100 mls/hr Piperacillin Sod/Tazobactam (Sod 4.5 gm/ Sodium Chloride) 100 mls @ 200 mls/hr IV ONETIME ONE Stop: 06/23/17 09:29 Last Admin: 06/23/17 09:33 Dose: 200 mls/hr Vancomycin HCl 1 gm/ Sodium (Chloride) 250 mls @ 250 mls/hr IV ONETIME ONE Stop: 06/23/17 10:29 Last Admin: 06/23/17 11:51 Dose: 250 mls/hr Vancomycin HCl 500 mg/ Sodium (Chloride) 100 mls @ 100 mls/hr IV ONETIME ONE Stop: 06/23/17 13:14 Last Admin: 06/23/17 13:35 Dose: 100 mls/hr Magnesium Oxide (Magnesium Oxide) 400 mg PO ONETIME ONE Stop: 06/21/17 10:01 Last Admin: 06/21/17 09:56 Dose: 400 mg Magnesium Oxide (Magnesium Oxide) 400 mg PO ONETIME ONE Stop: 06/23/17 11:01 Last Admin: 06/23/17 11:51 Dose: 400 mg Metoprolol Succinate (Toprol Xl) 25 mg PO DAILY [facility] Last Admin: 06/20/17 08:53 Dose: 25 mg Midodrine (Midodrine) 5 mg PO TID [facility] Stop: 06/22/17 21:01 Last Admin: 06/22/17 21:22 Dose: 5 mg Midodrine (Midodrine) 5 mg PO TIDAC [facility] Last Admin: 06/23/17 16:23 Dose: 5 mg Midodrine (Midodrine) 5 mg PO NOW STA Stop: 06/23/17 13:50 Last Admin: 06/23/17 14:20 Dose: 5 mg Morphine Sulfate (Morphine) 0.25 mg IVPUSH ONETIME ONE Stop: 06/22/17 11:13 Last Admin: 06/22/17 12:15 Dose: 0.25 mg Non-Formulary Medication (Fluticasone/Salmeterol) 1 puff INH ASDIRECTED PRN PRN Reason: Shortness of Breath Prednisone (Prednisone) 10 mg PO DAILY [facility] Last Admin: 06/20/17 08:51 Dose: 10 mg Prednisone (Prednisone) 20 mg PO WITHBREAKFAST [facility] Last Admin: 06/23/17 06:05 Dose: 20 mg Simvastatin (Zocor) 10 mg PO BEDTIME [facility] Sodium Bicarbonate (Sodium Bicarbonate 8.4%) 50 meq IVPUSH ONETIME ONE Stop: 06/19/17 22:58 Last Admin: 06/19/17 23:06 Dose: 50 meq Sodium Polystyrene Sulfonate (Kayexalate) 15 gm PO ONETIME ONE Stop: 06/19/17 22:57 Last Admin: 06/19/17 23:06 Dose: 15 gm Sodium Polystyrene Sulfonate (Kayexalate) 45 gm RECTAL NOW ONE Stop: 06/20/17 00:46 Last Admin: 06/20/17 01:34 Dose: 45 gm Sodium Polystyrene Sulfonate (Kayexalate) 30 gm PO NOW ONE Stop: 06/21/17 11:31 Last Admin: 06/21/17 12:31 Dose: 30 gm - Exam Quality Assessment: Supplemental Oxygen General: Alert, Oriented, Cooperative, No Acute Distress HEENT: Pupils Equal, Pupils Reactive, EOMI, Mucous Membr. Moist/[place] Neck: Trachea Midline Lungs: Normal Respiratory Effort, Wheezing Cardiovascular: Regular Rate, Regular Rhythm GI/Abdominal Exam: Normal Bowel Sounds, Soft, Non-Tender, No Organomegaly, No Distention, No Abnormal Bruit (Female) Exam: Deferred Back Exam: Normal Inspection, Decreased Range of Motion Extremities: Normal Inspection, Normal Range of Motion, Non-Tender, No Pedal Edema, Normal Capillary Refill Peripheral Pulses: 2+: Dorsalis Pedis (L), Dorsalis Pedis (R) Skin: Warm, Dry, Intact Neurological: No New Focal Deficit Psy/Mental Status: Alert, Normal Affect, Normal Mood - Problem List Review Problem List Initiated/Reviewed/Updated: Yes - My Orders Last 24 Hours: My Active Orders 06/23/17 08:26 Dextromethorphan/guaiFENesin [Robitussin DM] 10 ml PO Q6H PRN 06/23/17 08:30 Vancomycin Pharmacy to Dose [Pharmacy to Dose - Vancomycin] 0 dose .XX ASDIRECTED PRN 06/23/17 10:04 PEP Therapy [RT Chest Physiotherapy] [RC] ASDIRECTED 06/23/17 11:00 CULTURE SPUTUM + SMEAR [RM] Stat 06/23/17 17:00 Piperacillin/Tazobactam [Zosyn] 4.5 gm Sodium Chloride 0.9% [Normal Saline] 100 ml IV Q12H 06/23/17 23:44 CORTISOL [REF] Routine 06/23/17 23:45 Midodrine 5 mg PO Q6H PRN 06/24/17 00:00 Hydrocortisone Sod Succinate [Solu-CORTEF] 100 mg IVPUSH Q6H 06/24/17 01:20 Bisacodyl [Dulcolax] 10 mg RECTAL DAILY PRN 06/24/17 06:20 CRP [C-REACTIVE PROTEIN] [CHEM] AM 06/24/17 09:00 Methotrexate 5 mg PO Mo@0900 06/25/17 05:11 CRP [C-REACTIVE PROTEIN] [CHEM] AM 06/26/17 05:11 CRP [C-REACTIVE PROTEIN] [CHEM] AM - Plan Plan:: Assessment/Plan: Acute: Pneumonia-HCAP, slowly improving - Continue IV Zosyn and Vancomycin for pharmacy to renally dose - Sputum, Blood Cultures and Mycoplasma Antigen test all negative - CRP 20.9--> 19.8--> 15.7 - She is now at 3L NC on supplemental O2 - Continue Bronchodilators, Decongestant, IS as directed and Ez PEP Theraphy to help with respiration Relative Hypotension, Unchanged - Cannot r/o adrenal insufficiency - Hold BP meds - On Midodrine 5 mg po TID PRN for BP < 90/60 mmHg - Continue scheduled solucortef - If no good response this am, will move her to the unit for pressure support MIMI on CKD, Stable - Baseline Cr is 2.2-2.7; 4.7 on admission; 4.3--> 3.4 today; Follows with Nephrology, Dr. Perez - eGFR is 9; Stable at Stage 5 - Abnormal e-lytes: CO2 19, AG 18.5, BUN 109, Ca 10.6, Na 135 on admit - Gentle hydration -- 25cc/hr - Renal U/S r/o Obstructive Uropathy 1. Echogenic renal cortices. Slightly elevated resistivity indices. Findings felt compatible with nonspecific medical renal disease. 2. Minimal postvoid residual which is incidental 3. No additional findings seen on renal ultrasound study HLD - Triglycerides 73, Total cholesterol 231, LDL 105, HDL 96 - On Statin and AHA diet Hypomagnesemia - Mg 1.7-->1.7 - Pharmacy to monitor and replete Resolved: NSTEMI--- CKMB and Troponin both elevated x 2 readings - Received heparin gtt IV for treatment - EKG without ST segment changes, consistent with NSTEMI - Recommend medical management only since she is DNR/DNI--Discussed with patient possibility of transfer to [place] for Cardiology eval if repeat enzymes higher. She wishes to think this over until 1300, next cardiac markers due and readdress, she will speak to her family and decide. -she decided against - Core measures: ASA started - patient refused due to prior visits with Dr. Perez; Metoprolol dose increased; ACEI- contraindicated d/t CKD/ARF; start statin and check lipid panel Hyperkalemia - K 6.5--> 5.1 - Likely 2/2 MIMI - Received NaHCOS, Albuterol, Ca+ Gluconate and Kayexalate in ED; repeat kayexalate yesterday. More Kayexalate today. - Telemetry S/p Respiratory Distress - She is now much better respiratory jacome - CT scan report reads pneumonia at the left lung base. Emphysema and chronic interstitial lung disease - Routine RT care, Diuresis and IV Antibiotics Leukocytosis, improved to 14.56 -->12.78--> 14.98--> 11.16--> 8.90 today - She is on oral steroid - Continue to monitor Anemia - likely acute on chronic due to CKD and daily blood draws for labs - Hgb 10.7 -->12.2 --> 9.9--> 10.6 - No active bleed Chronic: HTN HLD COPD- oxygen dependent at home at 2L/N; ex smoker- quit in 1993 CKD Stage 4 OA Hypothyroidism- TSH WNL at 3.261 Psoriasis-on MTX and prednisone Hx tobacco use- quit in 1993 Plan: She looks better but hemodynamically about the same yesterday Continue current treatment Routine AM labs Continue PT/OT/RT Additional orders as above SW/CM for d/c planning Code status: DNR/DNI Prognosis is guarded. LOS > 96 hrs due to slow response to treatment and unresolved relative hypotension
[2017-06-24] MEDS: Formoterol/Mometasone 200-5 MCG 8.8 GM Inhaler IH SCH (08:25)
[2017-06-24] MEDS: Tiotropium Inhaler 18 MCG Inhalation Powder Cap Kit of 5 INH SCH (08:25)
[2017-06-24] MEDS: Heparin Sodium 5,000 Units/ML Vial SUBCUT SCH ×2 (08:31→21:59)
[2017-06-24] MEDS: Aspirin 81 MG Tab.Chew PO SCH (08:33)
[2017-06-24] MEDS: Folic Acid 1 MG Tab PO SCH (08:33)
[2017-06-24] MEDS: Multivitamins,Therapeutic Tab PO SCH (08:33)
[2017-06-24] MEDS: Diltiazem IR 60 MG Tab PO SCH ×2 (08:33→22:00)
[2017-06-24] MEDS: Metoprolol Succinate 50 MG Tab.ER PO SCH (08:34)
[2017-06-24] MEDS ORDERED: Methotrexate 2.5 MG Tab PO SCH (09:00)
[2017-06-24] MEDS ORDERED: Magnesium Sulfate/Water 2 GM in Premix Bag 1 BAG IV ONE (09:30)
[2017-06-24] MEDS: Magnesium Oxide 400 MG Tab PO SCH (22:00)
[2017-06-24] MEDS: Simvastatin 20 MG Tab PO SCH (22:00)
[2017-06-25] MEDS: Hydrocortisone Sodium Succinate 100 MG/2 ML SDV IVPUSH SCH ×4 (00:31→19:36)
[2017-06-25] MEDS: Piperacillin/Tazobactam 4.5 GM in Sodium Chloride 0.9% 100 ML IV SCH ×2 (05:51→19:36)
[2017-06-25] MEDS: Levothyroxine 100 MCG Tab PO SCH (05:52)
--- NOTE | 2017-06-25 06:53 | PCM.PN ---
- General Info Date of Service: 06/25/17 Admission Dx/Problem (Free Text): Hyperkalemia Subjective Update: Follow Up Functional Status: Reports: Pain Controlled, Tolerating Diet, Urinating. Denies : New Symptoms - Review of Systems General: Denies: Fever, Weakness, Fatigue, Malaise, Chills HEENT: Reports: No Symptoms Pulmonary: Denies: Shortness of Breath Cardiovascular: Denies: Chest Pain Gastrointestinal: Denies: Abdominal Pain, Nausea, Vomiting Genitourinary: Reports: No Symptoms Musculoskeletal: Reports: No Symptoms Skin: Denies: Cyanosis, Mottled, Pallor, Diaphoresis, Rash Systems Review Comment:: No overnight or acute issues. She is doing just fine. She has no new complaints except with hoarse voice. - Patient Data Vitals - Most Recent: Last Vital Signs Temp 36.2 C 06/25/17 03:24 Pulse 83 06/25/17 03:32 Resp 18 06/25/17 03:24 BP 105/59 L 06/25/17 03:24 Pulse Ox 91 L 06/25/17 06:25 Weight - Most Recent: 79.061 kg I&O - Last 24 Hours: Intake & Output 06/24/17 06/24/17 06/25/17 14:59 22:59 06:59 Intake Total 680 250 Output Total 800 400 Balance -120 -150 Lab Results Last 24 Hours: Laboratory Results - last 24 hr 06/24/17 06/24/17 06/24/17 Range/Units 06:20 09:00 09:00 Sodium 140 (136-145) mEq/L Potassium 4.0 (3.5-5.1) mEq/L Chloride 104 (98-107) mEq/L Carbon Dioxide 23 (21-32) mEq/L Anion Gap 17.0 H (5-15) BUN 69 H (7-18) mg/dL Creatinine 3.3 H (0.55-1.02) mg/dL Est Cr Clr Drug Dosing 9.98 mL/min Estimated GFR (MDRD) 13 (>60) mL/min BUN/Creatinine Ratio 20.9 H (14-18) Glucose 174 H (83-115) mg/dL Calcium 9.1 (8.5-10.1) mg/dL Magnesium 1.7 L (1.8-2.4) mg/dl C-Reactive Protein 15.7 H* (<1.0) mg/dL Vancomycin Trough 14.1 (10.0-20.0) 06/25/17 Range/Units 05:44 Sodium 143 (136-145) mEq/L Potassium 3.4 L (3.5-5.1) mEq/L Chloride 108 H (98-107) mEq/L Carbon Dioxide 24 (21-32) mEq/L Anion Gap 14.4 (5-15) BUN 67 H (7-18) mg/dL Creatinine 3.1 H (0.55-1.02) mg/dL Est Cr Clr Drug Dosing 10.63 mL/min Estimated GFR (MDRD) 14 (>60) mL/min BUN/Creatinine Ratio 21.6 H (14-18) Glucose 203 H (83-115) mg/dL Calcium 8.7 (8.5-10.1) mg/dL Magnesium 2.1 (1.8-2.4) mg/dl C-Reactive Protein 8.3 H* (<1.0) mg/dL Vancomycin Trough (10.0-20.0) [place] Results Last 24 Hours: Microbiology 06/22/17 17:45 Aerobic Blood Culture - Preliminary Blood - Venous - Lab Draw NO GROWTH AFTER 2 DAYS Anaerobic Blood Culture - Preliminary NO GROWTH AFTER 2 DAYS 06/22/17 17:25 Aerobic Blood Culture - Preliminary Blood - Venous NO GROWTH AFTER 2 DAYS Anaerobic Blood Culture - Preliminary NO GROWTH AFTER 2 DAYS 06/23/17 11:00 Gram Stain - Final Sputum - Expectorated Sputum Culture - Preliminary Med Orders - Current: Current Medications Acetaminophen (Tylenol) 650 mg PO Q4H PRN PRN Reason: Pain (Mild 1-3)/fever Hydrocodone Bitart/Acetaminophen ([place] 325-5 Mg) 1 tab PO Q4H PRN PRN Reason: Pain (moderate 4-6) Albuterol (Proventil Hfa) 0 gm INH ASDIRECTED PRN PRN Reason: Shortness of Breath Albuterol/Ipratropium (Duoneb 3.0-0.5 Mg/3 Ml) 3 ml NEB Q4H PRN PRN Reason: Shortness Of Breath/wheezing Last Admin: 06/22/17 01:23 Dose: 3 ml Aspirin (Aspirin) 81 mg PO DAILY DANIEL Last Admin: 06/24/17 08:33 Dose: 81 mg Bisacodyl (Dulcolax) 5 mg PO DAILY PRN PRN Reason: Constipation Last Admin: 06/23/17 06:05 Dose: 5 mg Bisacodyl (Dulcolax) 10 mg RECTAL DAILY PRN PRN Reason: Constipation Diltiazem HCl (Cardizem) 60 mg PO BID [facility] Last Admin: 06/24/17 22:00 Dose: Not Given Docusate Sodium (Colace) 100 mg PO BID PRN PRN Reason: Constipation Last Admin: 06/23/17 09:47 Dose: 100 mg Folic Acid (Folic Acid) 1 mg PO DAILY [facility] Last Admin: 06/24/17 08:33 Dose: 1 mg Guaifenesin/Phenylephrine HCl (Robitussin Dm) 10 ml PO Q6H PRN PRN Reason: Cough Last Admin: 06/23/17 09:41 Dose: 10 ml Heparin Sodium (Porcine) (Heparin Sodium) 5,000 units SUBCUT Q12HR [facility] Last Admin: 06/24/17 21:59 Dose: 5,000 units Hydralazine HCl (Apresoline) 10 mg IVPUSH Q4H PRN PRN Reason: Hypertension Hydrocortisone Sodium Succinate (Solu-Cortef) 100 mg IVPUSH Q6H [facility] Last Admin: 06/25/17 05:52 Dose: 100 mg Promethazine HCl 6.25 mg/ (Sodium Chloride) 50.25 mls @ 100 mls/hr IV Q6H PRN PRN Reason: Nausea/Vomiting Piperacillin Sod/Tazobactam (Sod 4.5 gm/ Sodium Chloride) 100 mls @ 25 mls/hr IV Q12H [facility] Last Admin: 06/25/17 05:51 Dose: 25 mls/hr Vancomycin HCl 1 gm/ Sodium (Chloride) 250 mls @ 250 mls/hr IV Q48H [facility] Levothyroxine Sodium (Synthroid) 100 mcg PO ACBREAKFAST [facility] Last Admin: 06/25/17 05:52 Dose: 100 mcg Lorazepam (Ativan) 0.25 mg IV Q6H PRN PRN Reason: Anxiety Magnesium Hydroxide (Milk Of Magnesia) 30 ml PO Q12H PRN PRN Reason: Constipation Magnesium Oxide (Magnesium Oxide) 400 mg PO BID [facility] Last Admin: 06/24/17 22:00 Dose: 400 mg Magnesium Sulfate (Pharmacy To Dose - Magnesium Replacement) 1 dose .XX ASDIRECTED [facility] Methotrexate (Methotrexate) 5 mg PO Mo@0900 [facility] Last Admin: 06/24/17 08:34 Dose: 5 mg Metoprolol Succinate (Toprol Xl) 50 mg PO DAILY [facility] Last Admin: 06/24/17 08:34 Dose: Not Given Metoprolol Tartrate (Lopressor) 5 mg IVPUSH Q4H PRN PRN Reason: Tachycardia Last Admin: 06/22/17 03:22 Dose: 5 mg Midodrine (Midodrine) 5 mg PO Q6H PRN PRN Reason: Hypotension Last Admin: 06/24/17 00:16 Dose: 5 mg Mometasone Furoate/Formoterol Fumar (Dulera 200-5 Mcg) 2 puff IH DAILY [facility] Last Admin: 06/24/17 08:25 Dose: 2 puff Multivitamins (Thera) 1 each PO DAILY [facility] Last Admin: 06/24/17 08:33 Dose: 1 each Ondansetron HCl (Zofran) 4 mg IV Q6H PRN PRN Reason: Nausea/Vomiting Polyethylene Glycol (Miralax) 17 gm PO DAILY PRN PRN Reason: Constipation Last Admin: 06/23/17 09:47 Dose: 17 gm Potassium Chloride (Pharmacy To Dose - Potassium Replacement) 1 dose .XX ASDIRECTED [facility] Senna/Docusate Sodium (Senna Plus) 1 tab PO BID PRN PRN Reason: Constipation Simvastatin (Zocor) 20 mg PO BEDTIME [facility] Last Admin: 06/24/17 22:00 Dose: 20 mg Sodium Chloride (Saline Flush) 10 ml FLUSH ASDIRECTED PRN PRN Reason: Keep Vein Open Last Admin: 06/19/17 22:01 Dose: 10 ml Temazepam (Restoril) 7.5 mg PO BEDTIME PRN PRN Reason: Sleep Tiotropium [place] (Spiriva Handihaler) 18 mcg INH DAILY [facility] Last Admin: 06/24/17 08:25 Dose: 1 ampule Tramadol HCl (Ultram) 50 mg PO BID PRN PRN Reason: Pain Vancomycin HCl (Pharmacy To Dose - Vancomycin) 0 dose .XX ASDIRECTED PRN PRN Reason: RX TO DOSE VANCOMYCIN Discontinued Medications Albuterol (Proventil Neb Soln) 2.5 mg NEB ONETIME ONE Stop: 06/19/17 22:54 Last Admin: 06/19/17 23:10 Dose: 2.5 mg Albuterol (Proventil Neb Soln) 2.5 mg NEB ONETIME ONE Stop: 06/19/17 22:55 Last Admin: 06/19/17 23:10 Dose: 2.5 mg Albuterol (Proventil Neb Soln) 2.5 mg NEB ONETIME ONE Stop: 06/19/17 22:56 Last Admin: 06/19/17 23:11 Dose: 2.5 mg Albuterol/Ipratropium (Duoneb 3.0-0.5 Mg/3 Ml) 3 ml INH Q4H PRN PRN Reason: Shortness of Breath Aspirin (Ecotrin) 325 mg PO ONETIME ONE Stop: 06/20/17 12:37 Last Admin: 06/20/17 14:32 Dose: Not Given Aspirin (Ecotrin) 325 mg PO ONETIME ONE Stop: 06/20/17 14:32 Last Admin: 06/20/17 14:38 Dose: 325 mg Bumetanide (Bumex) 1.5 mg IVPUSH ONETIME ONE Stop: 06/22/17 01:45 Last Admin: 06/22/17 01:53 Dose: 1.5 mg Calcium Gluconate (Calcium Gluconate) 1 gm IVPUSH ONETIME ONE Stop: 06/19/17 22:56 Last Admin: 06/19/17 23:06 Dose: 1 gm Fluconazole (Diflucan) 100 mg PO DAILY DANIEL Stop: 06/22/17 09:01 Last Admin: 06/22/17 08:48 Dose: 100 mg Furosemide (Lasix) 10 mg IVPUSH NOW ONE Stop: 06/23/17 10:16 Last Admin: 06/23/17 10:52 Dose: 10 mg Heparin Sodium (Porcine) (Heparin Sodium) 4,000 units IVPUSH .BOLUS ONE Stop: 06/20/17 10:51 Last Admin: 06/20/17 11:45 Dose: Not Given Heparin Sodium (Porcine) (Heparin Sodium) 4,000 units IVPUSH .BOLUS ONE Stop: 06/20/17 11:16 Last Admin: 06/20/17 11:45 Dose: 4,000 units Heparin Sodium (Porcine) (Heparin Sodium) 2,000 units IVPUSH .BOLUS ONE Stop: 06/20/17 20:58 Last Admin: 06/20/17 21:18 Dose: Not Given Heparin Sodium (Porcine) (Heparin Sodium) Confirm Administered Dose 5,000 units .ROUTE .STK-MED ONE Stop: 06/20/17 21:07 Last Admin: 06/20/17 21:17 Dose: 2,000 units Heparin Sodium (Porcine) (Heparin Sodium) 1,000 units IVPUSH .BOLUS ONE Stop: 06/21/17 15:12 Last Admin: 06/21/17 15:34 Dose: 1,000 units Heparin Sodium (Porcine) (Heparin Sodium) 1,000 units IVPUSH ONETIME ONE Stop: 06/21/17 22:23 Last Admin: 06/21/17 22:56 Dose: 1,000 units Sodium Chloride (Normal Saline) 1,000 mls @ 999 mls/hr IV ONETIME ONE Stop: 06/19/17 22:55 Last Admin: 06/19/17 22:02 Dose: 999 mls/hr Sodium Chloride (Normal Saline) 1,000 mls @ 50 mls/hr IV ASDIRECTED DANIEL Stop: 06/20/17 06:00 Last Admin: 06/20/17 01:20 Dose: 50 mls/hr Sodium Chloride (Normal Saline) 1,000 mls @ 25 mls/hr IV ASDIRECTED DANIEL Heparin Sodium/Dextrose (Heparin 25,000 Units In D5w 500 Ml) 25,000 units in 500 mls @ 9 mls/hr IV TITRATE DANIEL; 6 UNITS/KG/HR PRN Reason: Protocol Last Admin: 06/20/17 14:35 Dose: 9 mls/hr Azithromycin 500 mg/ Sodium (Chloride) 250 mls @ 250 mls/hr IV Q24H DANIEL Last Admin: 06/23/17 06:04 Dose: 250 mls/hr Ceftriaxone Sodium 1 gm/ (Sodium Chloride) 100 mls @ 200 mls/hr IV Q24H DANIEL Last Admin: 06/23/17 13:51 Dose: Not Given Magnesium Sulfate/Dextrose 1 (gm/ Premix) 100 mls @ 100 mls/hr IV ONETIME ONE Stop: 06/22/17 10:23 Last Admin: 06/22/17 10:17 Dose: 100 mls/hr Piperacillin Sod/Tazobactam (Sod 4.5 gm/ Sodium Chloride) 100 mls @ 200 mls/hr IV ONETIME ONE Stop: 06/23/17 09:29 Last Admin: 06/23/17 09:33 Dose: 200 mls/hr Vancomycin HCl 1 gm/ Sodium (Chloride) 250 mls @ 250 mls/hr IV ONETIME ONE Stop: 06/23/17 10:29 Last Admin: 06/23/17 11:51 Dose: 250 mls/hr Vancomycin HCl 500 mg/ Sodium (Chloride) 100 mls @ 100 mls/hr IV ONETIME ONE Stop: 06/23/17 13:14 Last Admin: 06/23/17 13:35 Dose: 100 mls/hr Magnesium Sulfate/Dextrose 1 (gm/ Premix) 100 mls @ 50 mls/hr IV ONETIME ONE Stop: 06/24/17 11:29 Last Admin: 06/24/17 09:41 Dose: 50 mls/hr Magnesium Oxide (Magnesium Oxide) 400 mg PO ONETIME ONE Stop: 06/21/17 10:01 Last Admin: 06/21/17 09:56 Dose: 400 mg Magnesium Oxide (Magnesium Oxide) 400 mg PO ONETIME ONE Stop: 06/23/17 11:01 Last Admin: 06/23/17 11:51 Dose: 400 mg Metoprolol Succinate (Toprol Xl) 25 mg PO DAILY DANIEL Last Admin: 06/20/17 08:53 Dose: 25 mg Midodrine (Midodrine) 5 mg PO TID DANIEL Stop: 06/22/17 21:01 Last Admin: 06/22/17 21:22 Dose: 5 mg Midodrine (Midodrine) 5 mg PO TIDAC DANIEL Last Admin: 06/23/17 16:23 Dose: 5 mg Midodrine (Midodrine) 5 mg PO NOW STA Stop: 06/23/17 13:50 Last Admin: 06/23/17 14:20 Dose: 5 mg Morphine Sulfate (Morphine) 0.25 mg IVPUSH ONETIME ONE Stop: 06/22/17 11:13 Last Admin: 06/22/17 12:15 Dose: 0.25 mg Non-Formulary Medication (Fluticasone/Salmeterol) 1 puff INH ASDIRECTED PRN PRN Reason: Shortness of Breath Prednisone (Prednisone) 10 mg PO DAILY DANIEL Last Admin: 06/20/17 08:51 Dose: 10 mg Prednisone (Prednisone) 20 mg PO WITHBREAKFAST DANIEL Last Admin: 06/23/17 06:05 Dose: 20 mg Simvastatin (Zocor) 10 mg PO BEDTIME DANIEL Sodium Bicarbonate (Sodium Bicarbonate 8.4%) 50 meq IVPUSH ONETIME ONE Stop: 06/19/17 22:58 Last Admin: 06/19/17 23:06 Dose: 50 meq Sodium Polystyrene Sulfonate (Kayexalate) 15 gm PO ONETIME ONE Stop: 06/19/17 22:57 Last Admin: 06/19/17 23:06 Dose: 15 gm Sodium Polystyrene Sulfonate (Kayexalate) 45 gm RECTAL NOW ONE Stop: 06/20/17 00:46 Last Admin: 06/20/17 01:34 Dose: 45 gm Sodium Polystyrene Sulfonate (Kayexalate) 30 gm PO NOW ONE Stop: 06/21/17 11:31 Last Admin: 06/21/17 12:31 Dose: 30 gm - Exam Quality Assessment: Supplemental Oxygen General: Alert, Oriented, Cooperative, No Acute Distress HEENT: Pupils Equal, Pupils Reactive, EOMI, Mucous Membr. Moist/Hyder Neck: Supple, Trachea Midline, No JVD, No Thyromegaly Lungs: Normal Respiratory Effort, Decreased Breath Sounds, Rales (at the bases) Cardiovascular: Regular Rate, Regular Rhythm GI/Abdominal Exam: Normal Bowel Sounds, Soft, Non-Tender, No Organomegaly, No Distention, No Abnormal Bruit, No Mass (Female) Exam: Deferred Back Exam: Normal Inspection, Decreased Range of Motion Extremities: Normal Inspection, Normal Range of Motion, Non-Tender, No Pedal Edema, Normal Capillary Refill Peripheral Pulses: 2+: Dorsalis Pedis (L), Dorsalis Pedis (R) Skin: Warm, Dry, Intact Neurological: No New Focal Deficit Psy/Mental Status: Alert, Normal Affect, Normal Mood - Problem List Review Problem List Initiated/Reviewed/Updated: Yes - My Orders Last 24 Hours: My Active Orders 06/24/17 09:00 Methotrexate 5 mg PO Mo@0900 06/24/17 21:00 Magnesium Oxide 400 mg PO BID 06/25/17 12:00 Vancomycin [Vancocin] 1 gm Sodium Chloride 0.9% [Normal Saline] 250 ml IV Q48H 06/26/17 05:11 BMP [BASIC METABOLIC PANEL,BMP] [CHEM] AM CRP [C-REACTIVE PROTEIN] [CHEM] AM MG [MAGNESIUM] [CHEM] AM 06/27/17 05:11 BMP [BASIC METABOLIC PANEL,BMP] [CHEM] AM MG [MAGNESIUM] [CHEM] AM 06/28/17 05:11 BMP [BASIC METABOLIC PANEL,BMP] [CHEM] AM MG [MAGNESIUM] [CHEM] AM - Plan Plan:: Assessment/Plan: Acute: Pneumonia-HCAP, continues to improve - Continue IV Zosyn and Vancomycin for pharmacy to renally dose - Sputum, Blood Cultures and Mycoplasma Antigen test all negative - CRP 20.9--> 19.8--> 15.7--> 8.3 - She is now at 3L NC on supplemental O2 - Continue Bronchodilators, Decongestant, IS as directed and Ez PEP Theraphy to help with respiration Relative Hypotension, Unchanged - Cannot r/o adrenal insufficiency - Hold BP meds - On Midodrine 5 mg po TID PRN for BP < 90/60 mmHg - Continue scheduled solucortef MIMI on CKD, Stable - Baseline Cr is 2.2-2.7; 4.7 on admission; 4.3--> 3.4 today; Follows with Nephrology, Dr. Perez - eGFR is 9; Stable at Stage 5 - Abnormal e-lytes: CO2 19, AG 18.5, BUN 109, Ca 10.6, Na 135 on admit - Gentle hydration -- 25cc/hr - Renal U/S r/o Obstructive Uropathy 1. Echogenic renal cortices. Slightly elevated resistivity indices. Findings felt compatible with nonspecific medical renal disease. 2. Minimal postvoid residual which is incidental 3. No additional findings seen on renal ultrasound study Hypokalemia - K 3.4 - Likely 2/2 inadequate intake - Replete and monitor HLD - Triglycerides 73, Total cholesterol 231, LDL 105, HDL 96 - On Statin and AHA diet Hoarseness - Likely 2/2 PNA/URI - Monitor Resolved: NSTEMI--- CKMB and Troponin both elevated x 2 readings - Received heparin gtt IV for treatment - EKG without ST segment changes, consistent with NSTEMI - Recommend medical management only since she is DNR/DNI--Discussed with patient possibility of transfer to [place] for Cardiology eval if repeat enzymes higher. She wishes to think this over until 1300, next cardiac markers due and readdress, she will speak to her family and decide. -she decided against - Core measures: ASA started - patient refused due to prior visits with Dr. Perez; Metoprolol dose increased; ACEI- contraindicated d/t CKD/ARF; start statin and check lipid panel Hyperkalemia - K 6.5--> 5.1 - Likely 2/2 MIMI - Received NaHCOS, Albuterol, Ca+ Gluconate and Kayexalate in ED; repeat kayexalate yesterday. More Kayexalate today. - Telemetry S/p Respiratory Distress - She is now much better respiratory jacome - CT scan report reads pneumonia at the left lung base. Emphysema and chronic interstitial lung disease - Routine RT care, Diuresis and IV Antibiotics Leukocytosis, improved to 14.56 -->12.78--> 14.98--> 11.16--> 8.90 today - She is on oral steroid - Continue to monitor Anemia - likely acute on chronic due to CKD and daily blood draws for labs - Hgb 10.7 -->12.2 --> 9.9--> 10.6 - No active bleed Hypomagnesemia - Mg 1.7-->1.7--> 2.1 - Pharmacy to monitor and replete Chronic: HTN HLD COPD- oxygen dependent at home at 2L/N; ex smoker- quit in 1993 CKD Stage 4 OA Hypothyroidism- TSH WNL at 3.261 Psoriasis-on MTX and prednisone Hx tobacco use- quit in 1993 Plan: She remains clinically stable Continue current treatment Routine AM labs Continue PT/OT/RT Encourage to ambulate as tolerated Additional orders as above SW/CM for d/c planning Code status: DNR/DNI Possible d/c in AM if stable Prognosis is guarded. LOS > 96 hrs due to slow response to treatment and unresolved relative hypotension
--- NOTE | 2017-06-25 07:59 | CT ---
Chest CT Technique: Multiple axial sections through the chest were obtained. Intravenous contrast was not utilized. 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 Descending aorta measures slightly ectatic at 3.2 cm. Atherosclerotic calcification is seen within the thoracic aorta. Minimal coronary artery calcification is seen. Small mediastinal lymph nodes are seen which are felt to be within normal limits. No axillary adenopathy is seen. Small portion of the visualized upper abdominal structures shows nothing acute. Previous cholecystectomy is noted. Emphysematous changes are seen within the lungs. Focal bullous change is noted within the right lung base. Mild interstitial change is seen within the left lung base suspicious for infection. No pleural effusions are seen. No pneumothorax is identified. Elevated right hemidiaphragm is seen which appears chronic. Surgical material is seen within the right hilar region. Bone window settings were reviewed which show scattered degenerative change within the spine. Impression: 1. Focal bullous change within the right lung base. Other less prominent emphysematous change throughout other portions of the chest. 2. Mild interstitial change within the left lung base suspicious for pneumonia. 3. 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 Diagnostic code #3 I agree with preliminary report issued by [facility] ([facility] report finalized on 06/22/17, 1:51 PM Central Time)
--- NOTE | 2017-06-25 08:00 | CR ---
Chest: Portable view of the chest was obtained. Comparison: Previous chest x-ray of 06/19/17 and previous study of 09/26/16. Chronic elevation of the right hemidiaphragm is seen with blunting of the right lateral costophrenic angle. Mild increased density is identified within the left lung base. Lungs otherwise are clear. Heart size is normal. Upper mediastinum is within normal limits. Impression: 1. Increased density within the left lung base. Increased density within the left lung base as an interval change from previous studies compatible with either pneumonia or atelectasis depending on the patient's symptoms. 2. Chronic change within the right lung base. Diagnostic code #3 I agree with preliminary report issued by [facility] ([facility] report finalized on 06/22/17, 6:12 AM Central Time)
[2017-06-25] MEDS: Folic Acid 1 MG Tab PO SCH (09:12)
[2017-06-25] MEDS: Aspirin 81 MG Tab.Chew PO SCH (09:12)
[2017-06-25] MEDS: Heparin Sodium 5,000 Units/ML Vial SUBCUT SCH ×2 (09:13→20:33)
[2017-06-25] MEDS: Magnesium Oxide 400 MG Tab PO SCH ×2 (09:13→20:33)
[2017-06-25] MEDS: Multivitamins,Therapeutic Tab PO SCH (09:13)
[2017-06-25] MEDS: Diltiazem IR 60 MG Tab PO SCH (09:18)
[2017-06-25] MEDS: Metoprolol Succinate 50 MG Tab.ER PO SCH ×2 (09:18→20:33)
[2017-06-25] MEDS: Tiotropium Inhaler 18 MCG Inhalation Powder Cap Kit of 5 INH SCH (10:31)
[2017-06-25] MEDS: Formoterol/Mometasone 200-5 MCG 8.8 GM Inhaler IH SCH (10:31)
[2017-06-25] MEDS ORDERED: Potassium Chloride 20 MEQ Tab.ER PO ONE (17:00)
[2017-06-25] MEDS: Diltiazem IR 30 MG Tab PO SCH (20:32)
[2017-06-25] MEDS: Simvastatin 20 MG Tab PO SCH (20:33)
[2017-06-26] MEDS: Hydrocortisone Sodium Succinate 100 MG/2 ML SDV IVPUSH SCH ×4 (00:16→20:13)
[2017-06-26] MEDS: Levothyroxine 100 MCG Tab PO SCH (05:37)
[2017-06-26] MEDS: Piperacillin/Tazobactam 4.5 GM in Sodium Chloride 0.9% 100 ML IV SCH ×2 (05:38→18:02)
[2017-06-26] MEDS: Heparin Sodium 5,000 Units/ML Vial SUBCUT SCH ×2 (09:09→20:13)
[2017-06-26] MEDS: Folic Acid 1 MG Tab PO SCH (09:13)
[2017-06-26] MEDS: Diltiazem IR 30 MG Tab PO SCH ×2 (09:13→20:13)
[2017-06-26] MEDS: Aspirin 81 MG Tab.Chew PO SCH (09:13)
[2017-06-26] MEDS: Famotidine 20 MG Tab PO SCH (09:13)
[2017-06-26] MEDS: Saccharomyces Boulardii (Probiotic) 250 MG Cap PO SCH ×2 (09:13→20:13)
[2017-06-26] MEDS: Metoprolol Succinate 50 MG Tab.ER PO SCH ×2 (09:14→20:17)
[2017-06-26] MEDS: Magnesium Oxide 400 MG Tab PO SCH ×2 (09:15→20:13)
[2017-06-26] MEDS: Multivitamins,Therapeutic Tab PO SCH (09:15)
--- NOTE | 2017-06-26 09:36 | PCM.PN ---
- General Info Date of Service: 06/26/17 Admission Dx/Problem (Free Text): Hyperkalemia, NSTEMI, PNA Analy "Ana Rosa" is seen this morning, resting comfortably in chair. She denies c/o pain, no SOB "just usual", no cough. She feels "tired" and "didn' t sleep well" last night. Otherwise no CP, abd pain, n/v/d, back pain or other concerns. Bowels are moving now after being constipated. She is voiding without difficulty. Appetite is good. Functional Status: Reports: Pain Controlled, Tolerating Diet, Ambulating, Urinating, Incentive Spirometry. Denies: New Symptoms - Review of Systems General: Reports: Weakness (slowly improving) HEENT: Reports: No Symptoms Pulmonary: Reports: Shortness of Breath (chronic). Denies: Cough Cardiovascular: Reports: Dyspnea on Exertion (chronic). Denies: Chest Pain, Palpitations, Lightheadedness Gastrointestinal: Reports: No Symptoms, Constipation (now moving bowels without difficulty) Genitourinary: Reports: No Symptoms Musculoskeletal: Reports: No Symptoms Skin: Reports: No Symptoms Neurological: Reports: No Symptoms Psychiatric: Reports: No Symptoms - Patient Data Vitals - Most Recent: Last Vital Signs Temp 98.6 F 06/26/17 07:25 Pulse 87 06/26/17 09:14 Resp 18 06/26/17 07:25 BP 119/81 06/26/17 09:14 Pulse Ox 97 06/26/17 07:25 Weight - Most Recent: 176 lb 3.2 oz I&O - Last 24 Hours: Intake & Output 06/25/17 06/26/17 06/26/17 22:59 06:59 14:59 Intake Total 1150 400 Output Total 550 400 Balance 600 0 Lab Results Last 24 Hours: Laboratory Results - last 24 hr 06/24/17 06/26/17 06/26/17 Range/Units 00:05 06:20 06:20 WBC 5.46 (3.98-10.04) K/mm3 RBC 2.96 L (3.98-5.22) M/mm3 Hgb 9.9 L (11.2-15.7) gm/L Hct 30.6 L (34.1-44.9) % MCV 103.4 H (79.4-94.8) fl MCH 33.4 H (25.6-32.2) pg MCHC 32.4 (32.2-35.5) g/dl RDW Std Deviation 68.8 H (36.4-46.3) fL Plt Count 150 L (182-369) K/mm3 MPV 11.6 (9.4-12.3) fl Neut % (Auto) 86.1 H (34.0-71.1) % Lymph % (Auto) 5.3 L (19.3-51.7) % [place] % (Auto) 7.9 (4.7-12.5) % Eos % (Auto) 0 L (0.7-5.8) Baso % (Auto) 0.2 (0.1-1.2) % Neut # (Auto) 4.70 (1.56-6.13) K/mm3 Lymph # (Auto) 0.29 L (1.18-3.74) K/mm3 [place] # (Auto) 0.43 H (0.24-0.36) K/mm3 Eos # (Auto) 0.00 L (0.04-0.36) K/mm3 Baso # (Auto) 0.01 (0.01-0.08) K/mm3 Manual Slide Review Abnormal smear Sodium 142 (136-145) mEq/L Potassium 4.6 (3.5-5.1) mEq/L Chloride 107 (98-107) mEq/L Carbon Dioxide 23 (21-32) mEq/L Anion Gap 16.6 H (5-15) BUN 68 H (7-18) mg/dL Creatinine 2.9 H (0.55-1.02) mg/dL Est Cr Clr Drug Dosing 11.36 mL/min Estimated GFR (MDRD) 15 (>60) mL/min BUN/Creatinine Ratio 23.4 H (14-18) Glucose 203 H (83-115) mg/dL Calcium 9.2 (8.5-10.1) mg/dL Magnesium 2.1 (1.8-2.4) mg/dl C-Reactive Protein 5.7 H* (<1.0) mg/dL Cortisol 5.5 ug/dL [place] Results Last 24 Hours: Microbiology 06/22/17 17:55 Streptococcus pneumoniae Antigen (M - Final Urine - Unspecified 06/22/17 17:45 Aerobic Blood Culture - Preliminary Blood - Venous - Lab Draw NO GROWTH AFTER 3 DAYS Anaerobic Blood Culture - Preliminary NO GROWTH AFTER 3 DAYS 06/22/17 17:25 Aerobic Blood Culture - Preliminary Blood - Venous NO GROWTH AFTER 3 DAYS Anaerobic Blood Culture - Preliminary NO GROWTH AFTER 3 DAYS 06/23/17 11:00 Gram Stain - Final Sputum - Expectorated Sputum Culture - Preliminary Med Orders - Current: Current Medications Acetaminophen (Tylenol) 650 mg PO Q4H PRN PRN Reason: Pain (Mild 1-3)/fever Hydrocodone Bitart/Acetaminophen ([place] 325-5 Mg) 1 tab PO Q4H PRN PRN Reason: Pain (moderate 4-6) Albuterol (Proventil Hfa) 0 gm INH ASDIRECTED PRN PRN Reason: Shortness of Breath Albuterol/Ipratropium (Duoneb 3.0-0.5 Mg/3 Ml) 3 ml NEB Q4H PRN PRN Reason: Shortness Of Breath/wheezing Last Admin: 06/22/17 01:23 Dose: 3 ml Aspirin (Aspirin) 81 mg PO DAILY [facility] Last Admin: 06/26/17 09:13 Dose: 81 mg Bisacodyl (Dulcolax) 5 mg PO DAILY PRN PRN Reason: Constipation Last Admin: 06/23/17 06:05 Dose: 5 mg Bisacodyl (Dulcolax) 10 mg RECTAL DAILY PRN PRN Reason: Constipation Diltiazem HCl (Cardizem) 30 mg PO BID [facility] Last Admin: 06/26/17 09:13 Dose: 30 mg Docusate Sodium (Colace) 100 mg PO BID PRN PRN Reason: Constipation Last Admin: 06/23/17 09:47 Dose: 100 mg Famotidine (Pepcid) 20 mg PO DAILY [facility] Last Admin: 06/26/17 09:13 Dose: 20 mg Folic Acid (Folic Acid) 1 mg PO DAILY [facility] Last Admin: 06/26/17 09:13 Dose: 1 mg Guaifenesin/Phenylephrine HCl (Robitussin Dm) 10 ml PO Q6H PRN PRN Reason: Cough Last Admin: 06/23/17 09:41 Dose: 10 ml Heparin Sodium (Porcine) (Heparin Sodium) 5,000 units SUBCUT Q12HR [facility] Last Admin: 06/26/17 09:09 Dose: 5,000 units Hydralazine HCl (Apresoline) 10 mg IVPUSH Q4H PRN PRN Reason: Hypertension Hydrocortisone Sodium Succinate (Solu-Cortef) 50 mg IVPUSH Q12H [facility] Promethazine HCl 6.25 mg/ (Sodium Chloride) 50.25 mls @ 100 mls/hr IV Q6H PRN PRN Reason: Nausea/Vomiting Piperacillin Sod/Tazobactam (Sod 4.5 gm/ Sodium Chloride) 100 mls @ 25 mls/hr IV Q12H [facility] Last Admin: 06/26/17 05:38 Dose: 25 mls/hr Vancomycin HCl 1 gm/ Sodium (Chloride) 250 mls @ 250 mls/hr IV Q48H [facility] Last Admin: 06/25/17 12:40 Dose: 250 mls/hr Levothyroxine Sodium (Synthroid) 100 mcg PO ACBREAKFAST [facility] Last Admin: 06/26/17 05:37 Dose: 100 mcg Lorazepam (Ativan) 0.25 mg IV Q6H PRN PRN Reason: Anxiety Magnesium Hydroxide (Milk Of Magnesia) 30 ml PO Q12H PRN PRN Reason: Constipation Magnesium Oxide (Magnesium Oxide) 400 mg PO BID [facility] Last Admin: 06/26/17 09:15 Dose: 400 mg Magnesium Sulfate (Pharmacy To Dose - Magnesium Replacement) 1 dose .XX ASDIRECTED [facility] Methotrexate (Methotrexate) 5 mg PO Mo@0900 [facility] Last Admin: 06/24/17 08:34 Dose: 5 mg Metoprolol Succinate (Toprol Xl) 25 mg PO BID [facility] Last Admin: 06/26/17 09:14 Dose: 25 mg Metoprolol Tartrate (Lopressor) 5 mg IVPUSH Q4H PRN PRN Reason: Tachycardia Last Admin: 06/22/17 03:22 Dose: 5 mg Midodrine (Midodrine) 5 mg PO Q6H PRN PRN Reason: Hypotension Last Admin: 06/24/17 00:16 Dose: 5 mg Mometasone Furoate/Formoterol Fumar (Dulera 200-5 Mcg) 2 puff IH DAILY [facility] Last Admin: 06/25/17 10:31 Dose: 2 puff Multivitamins (Thera) 1 each PO DAILY [facility] Last Admin: 06/26/17 09:15 Dose: 1 each Ondansetron HCl (Zofran) 4 mg IV Q6H PRN PRN Reason: Nausea/Vomiting Polyethylene Glycol (Miralax) 17 gm PO DAILY PRN PRN Reason: Constipation Last Admin: 06/23/17 09:47 Dose: 17 gm Potassium Chloride (Pharmacy To Dose - Potassium Replacement) 1 dose .XX ASDIRECTED [facility] Saccharomyces Boulardii (Florastor) 250 mg PO BID [facility] Last Admin: 06/26/17 09:13 Dose: 250 mg Senna/Docusate Sodium (Senna Plus) 1 tab PO BID PRN PRN Reason: Constipation Simvastatin (Zocor) 20 mg PO BEDTIME [facility] Last Admin: 06/25/17 20:33 Dose: 20 mg Sodium Chloride (Saline Flush) 10 ml FLUSH ASDIRECTED PRN PRN Reason: Keep Vein Open Last Admin: 06/19/17 22:01 Dose: 10 ml Temazepam (Restoril) 7.5 mg PO BEDTIME PRN PRN Reason: Sleep Tiotropium [place] (Spiriva Handihaler) 18 mcg INH DAILY [facility] Last Admin: 06/25/17 10:31 Dose: 1 ampule Tramadol HCl (Ultram) 50 mg PO BID PRN PRN Reason: Pain Vancomycin HCl (Pharmacy To Dose - Vancomycin) 0 dose .XX ASDIRECTED PRN PRN Reason: RX TO DOSE VANCOMYCIN Discontinued Medications Albuterol (Proventil Neb Soln) 2.5 mg NEB ONETIME ONE Stop: 06/19/17 22:54 Last Admin: 06/19/17 23:10 Dose: 2.5 mg Albuterol (Proventil Neb Soln) 2.5 mg NEB ONETIME ONE Stop: 06/19/17 22:55 Last Admin: 06/19/17 23:10 Dose: 2.5 mg Albuterol (Proventil Neb Soln) 2.5 mg NEB ONETIME ONE Stop: 06/19/17 22:56 Last Admin: 06/19/17 23:11 Dose: 2.5 mg Albuterol/Ipratropium (Duoneb 3.0-0.5 Mg/3 Ml) 3 ml INH Q4H PRN PRN Reason: Shortness of Breath Aspirin (Ecotrin) 325 mg PO ONETIME ONE Stop: 06/20/17 12:37 Last Admin: 06/20/17 14:32 Dose: Not Given Aspirin (Ecotrin) 325 mg PO ONETIME ONE Stop: 06/20/17 14:32 Last Admin: 06/20/17 14:38 Dose: 325 mg Bumetanide (Bumex) 1.5 mg IVPUSH ONETIME ONE Stop: 06/22/17 01:45 Last Admin: 06/22/17 01:53 Dose: 1.5 mg Calcium Gluconate (Calcium Gluconate) 1 gm IVPUSH ONETIME ONE Stop: 06/19/17 22:56 Last Admin: 06/19/17 23:06 Dose: 1 gm Diltiazem HCl (Cardizem) 60 mg PO BID [facility] Last Admin: 06/25/17 09:18 Dose: Not Given Fluconazole (Diflucan) 100 mg PO DAILY [facility] Stop: 06/22/17 09:01 Last Admin: 06/22/17 08:48 Dose: 100 mg Furosemide (Lasix) 10 mg IVPUSH NOW ONE Stop: 06/23/17 10:16 Last Admin: 06/23/17 10:52 Dose: 10 mg Heparin Sodium (Porcine) (Heparin Sodium) 4,000 units IVPUSH .BOLUS ONE Stop: 06/20/17 10:51 Last Admin: 06/20/17 11:45 Dose: Not Given Heparin Sodium (Porcine) (Heparin Sodium) 4,000 units IVPUSH .BOLUS ONE Stop: 06/20/17 11:16 Last Admin: 06/20/17 11:45 Dose: 4,000 units Heparin Sodium (Porcine) (Heparin Sodium) 2,000 units IVPUSH .BOLUS ONE Stop: 06/20/17 20:58 Last Admin: 06/20/17 21:18 Dose: Not Given Heparin Sodium (Porcine) (Heparin Sodium) Confirm Administered Dose 5,000 units .ROUTE .STK-MED ONE Stop: 06/20/17 21:07 Last Admin: 06/20/17 21:17 Dose: 2,000 units Heparin Sodium (Porcine) (Heparin Sodium) 1,000 units IVPUSH .BOLUS ONE Stop: 06/21/17 15:12 Last Admin: 06/21/17 15:34 Dose: 1,000 units Heparin Sodium (Porcine) (Heparin Sodium) 1,000 units IVPUSH ONETIME ONE Stop: 06/21/17 22:23 Last Admin: 06/21/17 22:56 Dose: 1,000 units Hydrocortisone Sodium Succinate (Solu-Cortef) 100 mg IVPUSH Q6H [facility] Last Admin: 06/26/17 05:38 Dose: 100 mg Sodium Chloride (Normal Saline) 1,000 mls @ 999 mls/hr IV ONETIME ONE Stop: 06/19/17 22:55 Last Admin: 06/19/17 22:02 Dose: 999 mls/hr Sodium Chloride (Normal Saline) 1,000 mls @ 50 mls/hr IV ASDIRECTED [facility] Stop: 06/20/17 06:00 Last Admin: 06/20/17 01:20 Dose: 50 mls/hr Sodium Chloride (Normal Saline) 1,000 mls @ 25 mls/hr IV ASDIRECTED [facility] Heparin Sodium/Dextrose (Heparin 25,000 Units In D5w 500 Ml) 25,000 units in 500 mls @ 9 mls/hr IV TITRATE [facility]; 6 UNITS/KG/HR PRN Reason: Protocol Last Admin: 06/20/17 14:35 Dose: 9 mls/hr Azithromycin 500 mg/ Sodium (Chloride) 250 mls @ 250 mls/hr IV Q24H [facility] Last Admin: 06/23/17 06:04 Dose: 250 mls/hr Ceftriaxone Sodium 1 gm/ (Sodium Chloride) 100 mls @ 200 mls/hr IV Q24H [facility] Last Admin: 06/23/17 13:51 Dose: Not Given Magnesium Sulfate/Dextrose 1 (gm/ Premix) 100 mls @ 100 mls/hr IV ONETIME ONE Stop: 06/22/17 10:23 Last Admin: 06/22/17 10:17 Dose: 100 mls/hr Piperacillin Sod/Tazobactam (Sod 4.5 gm/ Sodium Chloride) 100 mls @ 200 mls/hr IV ONETIME ONE Stop: 06/23/17 09:29 Last Admin: 06/23/17 09:33 Dose: 200 mls/hr Vancomycin HCl 1 gm/ Sodium (Chloride) 250 mls @ 250 mls/hr IV ONETIME ONE Stop: 06/23/17 10:29 Last Admin: 06/23/17 11:51 Dose: 250 mls/hr Vancomycin HCl 500 mg/ Sodium (Chloride) 100 mls @ 100 mls/hr IV ONETIME ONE Stop: 06/23/17 13:14 Last Admin: 06/23/17 13:35 Dose: 100 mls/hr Magnesium Sulfate/Dextrose 1 (gm/ Premix) 100 mls @ 50 mls/hr IV ONETIME ONE Stop: 06/24/17 11:29 Last Admin: 06/24/17 09:41 Dose: 50 mls/hr Magnesium Oxide (Magnesium Oxide) 400 mg PO ONETIME ONE Stop: 06/21/17 10:01 Last Admin: 06/21/17 09:56 Dose: 400 mg Magnesium Oxide (Magnesium Oxide) 400 mg PO ONETIME ONE Stop: 06/23/17 11:01 Last Admin: 06/23/17 11:51 Dose: 400 mg Metoprolol Succinate (Toprol Xl) 25 mg PO DAILY [facility] Last Admin: 06/20/17 08:53 Dose: 25 mg Metoprolol Succinate (Toprol Xl) 50 mg PO DAILY [facility] Last Admin: 06/25/17 09:18 Dose: Not Given Midodrine (Midodrine) 5 mg PO TID [facility] Stop: 06/22/17 21:01 Last Admin: 06/22/17 21:22 Dose: 5 mg Midodrine (Midodrine) 5 mg PO TIDAC [facility] Last Admin: 06/23/17 16:23 Dose: 5 mg Midodrine (Midodrine) 5 mg PO NOW STA Stop: 06/23/17 13:50 Last Admin: 06/23/17 14:20 Dose: 5 mg Morphine Sulfate (Morphine) 0.25 mg IVPUSH ONETIME ONE Stop: 06/22/17 11:13 Last Admin: 06/22/17 12:15 Dose: 0.25 mg Non-Formulary Medication (Fluticasone/Salmeterol) 1 puff INH ASDIRECTED PRN PRN Reason: Shortness of Breath Potassium Chloride (Klor-Con M20) 20 meq PO ONETIME ONE Stop: 06/25/17 17:01 Last Admin: 06/25/17 18:35 Dose: 20 meq Prednisone (Prednisone) 10 mg PO DAILY [facility] Last Admin: 06/20/17 08:51 Dose: 10 mg Prednisone (Prednisone) 20 mg PO WITHBREAKFAST [facility] Last Admin: 06/23/17 06:05 Dose: 20 mg Simvastatin (Zocor) 10 mg PO BEDTIME [facility] Sodium Bicarbonate (Sodium Bicarbonate 8.4%) 50 meq IVPUSH ONETIME ONE Stop: 06/19/17 22:58 Last Admin: 06/19/17 23:06 Dose: 50 meq Sodium Polystyrene Sulfonate (Kayexalate) 15 gm PO ONETIME ONE Stop: 06/19/17 22:57 Last Admin: 06/19/17 23:06 Dose: 15 gm Sodium Polystyrene Sulfonate (Kayexalate) 45 gm RECTAL NOW ONE Stop: 06/20/17 00:46 Last Admin: 06/20/17 01:34 Dose: 45 gm Sodium Polystyrene Sulfonate (Kayexalate) 30 gm PO NOW ONE Stop: 06/21/17 11:31 Last Admin: 06/21/17 12:31 Dose: 30 gm - Exam Quality Assessment: Supplemental Oxygen, DVT Prophylaxis General: Alert, Oriented, Cooperative, No Acute Distress HEENT: Pupils Equal, EOMI, Mucous Membr. Moist/[place] Neck: Supple Lungs: Normal Respiratory Effort, Decreased Breath Sounds, Rales (bilateral bases with inspiration---minimal) Cardiovascular: Regular Rate, Regular Rhythm GI/Abdominal Exam: Normal Bowel Sounds, Soft, Non-Tender (Female) Exam: Deferred Extremities: Normal Inspection, Normal Capillary Refill, Pedal Edema (trace to minimal at ankles) Peripheral Pulses: 1+: Dorsalis Pedis (L), Dorsalis Pedis (R) Skin: Warm, Dry, Intact Neurological: No New Focal Deficit Psy/Mental Status: Alert, Normal Affect, Normal Mood - Problem List & Annotations (1) NSTEMI (non-ST elevated myocardial infarction) SNOMED Code(s): 708796313 Code(s): I21.4 - NON-ST ELEVATION (NSTEMI) MYOCARDIAL INFARCTION Status: Acute Priority: High Current Visit: Yes (2) MIMI (acute kidney injury) SNOMED Code(s): 94866994 Code(s): N17.9 - ACUTE KIDNEY FAILURE, UNSPECIFIED Status: Acute Priority : High Current Visit: Yes (3) CKD (chronic kidney disease) stage 5, GFR less than 15 ml/min SNOMED Code(s): 698157390 Code(s): N18.5 - CHRONIC KIDNEY DISEASE, STAGE 5 Status: Chronic Priority : High Current Visit: Yes (4) Hyperkalemia SNOMED Code(s): 10488051 Code(s): E87.5 - HYPERKALEMIA Status: Resolved Priority: High Current Visit: Yes (5) Leukocytosis SNOMED Code(s): 598856225 Code(s): D72.829 - ELEVATED WHITE BLOOD CELL COUNT, UNSPECIFIED Status: Resolved Priority: Medium Current Visit: Yes Qualifiers: Leukocytosis type: unspecified Qualified Code(s): D72.829 - Elevated white blood cell count, unspecified - Problem List Review Problem List Initiated/Reviewed/Updated: Yes - My Orders Last 24 Hours: My Active Orders 07/01/17 07:00 CBC W/O DIFF,HEMOGRAM [HEME] MOTH@0700 07/04/17 07:00 CBC W/O DIFF,HEMOGRAM [HEME] MOTH@00 07/08/17 07:00 CBC W/O DIFF,HEMOGRAM [HEME] MOTH@00 07/11/17 07:00 CBC W/O DIFF,HEMOGRAM [HEME] MOTH@0700 06/26/17 07:45 Chest 2V [CR] Routine 06/26/17 07:46 RT Flutter Valve Therapy [RT Acapella] [RESPCARE] Routine 06/26/17 09:00 Famotidine [Pepcid] 20 mg PO DAILY Hydrocortisone Sod Succinate [Solu-CORTEF] 50 mg IVPUSH Q12H Saccharomyces Boulardii [Florastor] 250 mg PO BID 06/27/17 07:00 CBC W/O DIFF,HEMOGRAM [HEME] MOTH@0700 - Plan Plan:: Assessment/Plan: Acute: Pneumonia-HCAP, continues to improve - Continue IV Zosyn for pharmacy to renally dose-- DC vanco today as doing better - Sputum, Blood Cultures and Mycoplasma Antigen test all negative - CRP 20.9--> 19.8--> 15.7--> 8.3-->5.7 - She is now at 4L NC on supplemental O2--2 is home baseline - Continue Bronchodilators, Decongestant, IS as directed and Ez PEP Theraphy to help with respiration - Repeat CXR this morning- chronic changes to lung base, no new changes- reviewed with Dr. Alvarenga Relative Hypotension, resolving -- b/p this am 100/72 - Cannot r/o adrenal insufficiency--cortisol level wnl at 5.5 for am draw - Hold BP meds - On Midodrine 5 mg po TID PRN for BP < 90/60 mmHg - Continue scheduled solucortef--taper dose and see how she responds with plan to restart PO prednisone MIMI on CKD, Stable - Baseline Cr is 2.2-2.7; 4.7 on admission; 4.3--> 3.4-->3.3-->3.1 today; Follows with Nephrology, Dr. Perez - eGFR is 15 today; Stable to improving- at Stage 5 currently - Abnormal e-lytes: CO2 19, AG 18.5, BUN 109, Ca 10.6, Na 135 on admit-- resolved - Gentle hydration - Renal U/S r/o Obstructive Uropathy 1. Echogenic renal cortices. Slightly elevated resistivity indices. Findings felt compatible with nonspecific medical renal disease. 2. Minimal postvoid residual which is incidental 3. No additional findings seen on renal ultrasound study Anemia--- chronic - likely acute on chronic due to CKD/ARF - Hgb 10.7 -->12.2 --> 9.9--> 10.6-->9.9 today - No active bleed Hypokalemia--resolved-- 4.6 today - K 3.4 - Likely 2/2 inadequate intake - Replete and monitor HLD - Triglycerides 73, Total cholesterol 231, LDL 105, HDL 96 - On Statin and AHA diet Hoarseness - Likely 2/2 PNA/URI - Monitor Resolved: NSTEMI--- CKMB and Troponin both elevated x 2 readings - Received heparin gtt IV for treatment - EKG without ST segment changes, consistent with NSTEMI - Recommend medical management only since she is DNR/DNI--Discussed with patient possibility of transfer to [place] for Cardiology eval if repeat enzymes higher. She wishes to think this over until 1300, next cardiac markers due and readdress, she will speak to her family and decide. -she decided against - Core measures: ASA started - patient refused due to prior visits with Dr. Perez; Metoprolol dose increased; ACEI- contraindicated d/t CKD/ARF; start statin and check lipid panel Hyperkalemia--resolved - K 6.5--> 5.1 - Likely 2/2 MIMI - Received NaHCOS, Albuterol, Ca+ Gluconate and Kayexalate in ED; repeat kayexalate yesterday. More Kayexalate today. - Telemetry S/p Respiratory Distress--resolved - She is now much better respiratory jacome - CT scan report reads pneumonia at the left lung base. Emphysema and chronic interstitial lung disease - Routine RT care, Diuresis and IV Antibiotics Leukocytosis, improved to 14.56 -->12.78--> 14.98--> 11.16--> 8.90 - She is on oral steroid - Continue to monitor Hypomagnesemia --resolved - Mg 1.7-->1.7--> 2.1 - Pharmacy to monitor and replete Chronic: HTN- now with hypotension HLD COPD- oxygen dependent at home at 2L/N; ex smoker- quit in 1993 CKD Stage 4 --stage 5 here but slowly improving OA Hypothyroidism- TSH WNL at 3.261 Psoriasis-on MTX and prednisone Hx tobacco use- quit in 1993 Plan: She remains clinically stable Continue current treatment Routine AM labs Continue PT/OT/RT Encourage to ambulate as tolerated Additional orders as above SW/CM for d/c planning--- see how patient tolerates decrease of solucortef with b/p readings, repeat CXR to follow LLL pna today. DC likely in 24-48 hrs Pharmacy provided information that medications started at last discharge: spironolactone, lisinopril, metoprolol succinate (all rx'd for 20 days) were filled, but not refilled after that---- this noncompliance may have contributed to admission problem. Code status: DNR/DNI Prognosis is guarded. LOS > 96 hrs due to slow response to treatment and unresolved relative hypotension
[2017-06-26] MEDS: Tiotropium Inhaler 18 MCG Inhalation Powder Cap Kit of 5 INH SCH (10:10)
[2017-06-26] MEDS: Formoterol/Mometasone 200-5 MCG 8.8 GM Inhaler IH SCH (10:10)
--- NOTE | 2017-06-26 11:24 | CR ---
Chest: Two views of the chest were obtained. Comparison: Prior chest x-ray of 06/22/17. Chronic elevated right hemidiaphragm with pleural thickening is noted. Lung markings are questionably increased from prior exam raising the possibility of mild pulmonary vascular congestion or fluid overload. Slight density within the left base shows improvement from prior exam. Bony structures are unremarkable for the patient's age. Previous right lung surgery is noted. Impression: 1. Questionable increased lung markings from prior study raising the possibility of pulmonary vascular congestion or fluid overload. Please correlate. 2. Improved density within the left lung base from prior exam. 3. Stable changes of previous right lung surgery. Diagnostic code #3
[2017-06-26] MEDS: Simvastatin 20 MG Tab PO SCH (20:13)
[2017-06-27] MEDS: Midodrine 5 MG Tab PO PRN (03:39)
[2017-06-27] MEDS: Piperacillin/Tazobactam 4.5 GM in Sodium Chloride 0.9% 100 ML IV SCH (05:15)
[2017-06-27] MEDS: Levothyroxine 100 MCG Tab PO SCH (05:15)
[2017-06-27] MEDS ORDERED: Furosemide 40 MG/4 ML VIAL IVPUSH ONE (06:26)
--- NOTE | 2017-06-27 07:18 | PCM.DCSUM1 ---
Discharge Summary - Hospital Course Free Text/Narrative:: This is an 82-year-old pleasant white female with past medical history of impaired vision, hyperlipidemia, hypertension, COPD, chronic kidney disease stage 4, osteoarthritis, hypothyroidism, and psoriasis who was initially seen at her primary care's office and was found to have abnormal levels of potassium. She was referred to the emergency department for further management. She denies any symptoms except for dyspnea on exertion which is chronic to her; she wears supplemental oxygen chronically at 2L/NC. Her initial workup in the emergency department shows a CBC remarkable for WBC of 16.64, RBC of 3.54, MCV of 100.8, MCH of 34.5, RDW of 16 6.4, neutrophils of 92% and lymphocytes of 3%. Chemistry is remarkable for sodium of 135, potassium of 6.5, carbon dioxide of 19, anion gap of 18.5, BUN of 109, creatinine of 4.7 ( baseline is around 2.2 by chart review, she is a Nephrology patient of Dr. Perez), glucose of 216, calcium 10.6, CK-MB of 4.8, troponin of 0.148, proBNP of 6,549, and total protein of 6.2. Patient is being admitted for medical management of hyperkalemia likely secondary to acute kidney injury. She is DNR/DNI. - Discharge Data Discharge Date: 06/27/17 (admit date 06/19/17) Discharge Disposition: DC/Tfer to [facility] 03 Condition: Fair - Discharge Diagnosis/Problem(s) (1) NSTEMI (non-ST elevated myocardial infarction) SNOMED Code(s): 767241904 ICD Code: I21.4 - NON-ST ELEVATION (NSTEMI) MYOCARDIAL INFARCTION Status: Acute Priority: High Current Visit: Yes (2) MIMI (acute kidney injury) SNOMED Code(s): 19517612 ICD Code: N17.9 - ACUTE KIDNEY FAILURE, UNSPECIFIED Status: Acute Priority: High Current Visit: Yes (3) CKD (chronic kidney disease) stage 5, GFR less than 15 ml/min SNOMED Code(s): 529640471 ICD Code: N18.5 - CHRONIC KIDNEY DISEASE, STAGE 5 Status: Chronic Priority: High Current Visit: Yes (4) Hyperkalemia SNOMED Code(s): 58913237 ICD Code: E87.5 - HYPERKALEMIA Status: Resolved Priority: High Current Visit: Yes (5) Leukocytosis SNOMED Code(s): 786859519 ICD Code: D72.829 - ELEVATED WHITE BLOOD CELL COUNT, UNSPECIFIED Status: Resolved Priority: Medium Current Visit: Yes Qualifiers: Leukocytosis type: unspecified Qualified Code(s): D72.829 - Elevated white blood cell count, unspecified (6) CHF exacerbation SNOMED Code(s): 68052056 ICD Code: I50.9 - HEART FAILURE, UNSPECIFIED Status: Acute Priority: High Current Visit: Yes Qualifiers: Congestive heart failure type: diastolic Qualified Code(s): I50.33 - Acute on chronic diastolic (congestive) heart failure (7) Pneumonia SNOMED Code(s): 391957388 ICD Code: J18.9 - PNEUMONIA, UNSPECIFIED ORGANISM Status: Acute Priority : High Current Visit: Yes Qualifiers: Pneumonia type: due to other aerobic Gram-negative bacteria Laterality: left Lung location: lower lobe of lung Qualified Code(s): J15.6 - Pneumonia due to other Gram-negative bacteria - Patient Summary/Data Operative Procedure(s) Performed: None Complications: None Consults: Consultations 06/20/17 00:49 Consult to Case Management [CONS] Routine Consult to Towel Rolling Machine Operator [CONS] Routine Consult to Spiritual Care [CONS] Routine OT Evaluation and Treatment [CONS] Routine PT Evaluation and Treatment [CONS] Routine Labs Pending at D/C: None Recommended Follow-up Testing/Procedures: Patient DC instructions: Labs to be done Mon or Tu next week: CBC, BMP, Magnesium levels Your diuretic and b/p medications may need to be adjusted -- very important to follow up with your PCP within 5-6 days of discharge. Monitory your b/p daily and record, take record with to all provider visits Daily weight, same time of day, same routine- record and take with to all provider visits- call if >2lb weight gain in 24 hours as this can be a sign of heart failure. Supplemental oxygen 2-4L via nasal cannula at all times Follow up with Dr. Perez, Routing Equipment Tender as soon as you are able to get in for recheck of kidneys -- with recent renal failure this is very important to follow. Ambulate/walk 4+ times daily with supplemental oxygen. PT/OT to continue at [facility] for rehab stay. Planned Operative Procedure(s) after DC: None Hospital Course: Assessment/Plan: Acute: Pneumonia-HCAP, continues to improve - Continue IV Zosyn for pharmacy to renally dose-- DC vanco as doing better both clinically and with lab improvements---SC report this morning is with rare enterobacter colacae and rare stenotrophomonas maltophilia---research shows both likely sensitive to bactrim-- will be DC'd home with 10 days of bactrim DS BID today. - Blood Cultures and Mycoplasma and strep pneumo Antigen tests all negative - CRP 20.9--> 19.8--> 15.7--> 8.3-->5.7--> - She is now at 4L NC on supplemental O2--2 is home baseline - Continue Bronchodilators, Decongestant, IS as directed and Ez PEP Theraphy to help with respiration - Repeat CXR this morning- chronic changes to lung base, no new changes- reviewed with Dr. Alvarenga Relative Hypotension, resolving - Cannot r/o adrenal insufficiency--cortisol level wnl at 5.5 for am draw - Hold BP meds, reduced metoprolol dose back to 25mg daily - On Midodrine 5 mg po TID PRN for BP < 90/60 mmHg-- has not needed. - Continue scheduled solucortef--taper dose and see how she responds with plan to restart PO prednisone MIMI on CKD, Stable - Baseline Cr is 2.2-2.7; 4.7 on admission; 4.3--> 3.4-->3.3-->3.1--> 2.9--> 2.8 today; Follows with Nephrology, Dr. Perez - eGFR is 15 today; Stable to improving- at Stage 5 currently - Abnormal e-lytes: CO2 19, AG 18.5, BUN 109, Ca 10.6, Na 135 on admit-- resolved - Gentle hydration - Renal U/S r/o Obstructive Uropathy 1. Echogenic renal cortices. Slightly elevated resistivity indices. Findings felt compatible with nonspecific medical renal disease. 2. Minimal postvoid residual which is incidental 3. No additional findings seen on renal ultrasound study CHF exacerbation -Caution with diuresis due to b/p and renal status -Home dose of lasix is 80mg, also recently rx'd spironolactone -Will give 40 IVP lasix today, DC dose of 40mg PO lasix----cautioned patient that this may need to be increased/adjusted after discharge. Anemia--- chronic and stable - likely acute on chronic due to CKD/ARF - Hgb 10.7 -->12.2 --> 9.9--> 10.6-->9.9 today - No active bleed Hypokalemia--resolved-- 4.6 today - K 3.4 - Likely 2/2 inadequate intake - Replete and monitor HLD - Triglycerides 73, Total cholesterol 231, LDL 105, HDL 96 - On Statin and AHA diet Hoarseness - Likely 2/2 PNA/URI - Monitor Resolved: NSTEMI--- CKMB and Troponin both elevated x 2 readings - Received heparin gtt IV for treatment - EKG without ST segment changes, consistent with NSTEMI - Recommend medical management only since she is DNR/DNI--Discussed with patient possibility of transfer to [place] for Cardiology eval if repeat enzymes higher. She wishes to think this over until 1300, next cardiac markers due and readdress, she will speak to her family and decide. -she decided against - Core measures: ASA started - patient refused due to prior visits with Dr. Perez; Metoprolol-- dose was increased to 25mg BID but patient became hypotensive, switched back to 25mg QD; ACEI- contraindicated d/t CKD/ARF; start statin and check lipid panel Hyperkalemia--resolved - K 6.5--> 5.1 - Likely 2/2 MIMI - Received NaHCOS, Albuterol, Ca+ Gluconate and Kayexalate in ED; repeat kayexalate yesterday. More Kayexalate today. - Telemetry S/p Respiratory Distress--resolved - She is now much better respiratory jacome - CT scan report reads pneumonia at the left lung base. Emphysema and chronic interstitial lung disease - Routine RT care, Diuresis and IV Antibiotics Leukocytosis, improved to 14.56 -->12.78--> 14.98--> 11.16--> 8.90 --> 5.46--> 4.98 - Continue to monitor - Solucortef DC'd today, transition to PO prednisone Hypomagnesemia --resolved - Mg 1.7-->1.7--> 2.1 - Pharmacy to monitor and replete Chronic: HTN- now with hypotension HLD COPD- oxygen dependent at home at 2L/N; ex smoker- quit in 1993 CKD Stage 4 --stage 5 here but slowly improving OA Hypothyroidism- TSH WNL at 3.261 Psoriasis-on MTX and prednisone Hx tobacco use- quit in 1993 Plan: She remains clinically stable Continue PT/OT/RT-- will cont with OP PT Encourage to ambulate as tolerated-- doing well with this, motivated to walk Additional orders as above SW/CM for d/c planning--- DC to [facility] today with quick f/up with PCP early next week for recheck and recheck of labs. Code status: DNR/DNI LOS > 96 hrs due to slow response to treatment; multiple ongoing problems including NSTEMI, PNA, relative hypotension, electrolyte abnormalities, CHF exacerbation, Acute on CKD. PCP is Dr. Rosas, she also sees Lisa Piedra BOTTOM HOOP DRIVER and Shreya in [facility] as she lives in [place]. - Patient Instructions Diet: Usual Diet as Tolerated, Renal Diet Activity: As Tolerated, No Strenuous Activities, Rest and Relax Today Driving: Do Not Drive Showering/Bathing: May Shower Notify Provider of: Fever, Increased Pain, Swelling and Redness, Nausea and/or Vomiting - Discharge Plan Prescriptions/Med Rec: Aspirin 81 mg PO DAILY #30 tab.chew Bifidobacter. Bifidum/B.Longum [Florajen Bifidoblend] 460 mg PO DAILY #30 capsule Docusate Sodium [Colace] 100 mg PO BID PRN #30 cap PRN Reason: Constipation Famotidine [Pepcid] 20 mg PO DAILY #30 tablet Furosemide [Lasix] 40 mg PO DAILY #30 tablet Magnesium Oxide 400 mg PO BID #30 tablet Prednisone [IJD: Prednisone] 10 mg PO DAILY #30 tab Simvastatin [Zocor] 20 mg PO BEDTIME #30 tablet Sulfamethoxazole/Trimethoprim [IJD: Sulfamethoxazole/Trimethoprim DS] 1 tab PO BID #20 tablet Home Medications: Home Meds Albuterol/Ipratropium [DuoNeb 3.0-0.5 MG/3 ML] 1 dose INH QID PRN 05/20/17 [ History] Allopurinol [Zyloprim] 200 mg PO DAILY 05/20/17 [History] Diltiazem HCl [Cardizem] 60 mg PO BID 05/20/17 [History] Fluticasone/Salmeterol [Advair 250-50 Diskus] 1 puff INH BID PRN 05/20/17 [ History] Methotrexate 2 tab PO WEEKLY 05/20/17 [History] Folic Acid 1 mg PO DAILY #20 tablet 05/24/17 [Rx] Levothyroxine [Synthroid] 100 mcg PO ACBREAKFAST #20 tablet 05/24/17 [Rx] Metoprolol Succinate [Toprol XL] 25 mg PO DAILY #20 tab.er 05/24/17 [Rx] Tiotropium [Spiriva HandiHaler] 18 mcg INH DAILY #20 cap 05/24/17 [Rx] Cinnamon Bark [Cinnamon] 500 mg PO DAILY 06/19/17 [History] Garlic 1 tab PO DAILY 06/19/17 [History] Multivitamin [Multivitamins] 1 tab PO DAILY 06/19/17 [History] Niacin [Niacin ER] 1,000 mg PO DAILY 06/20/17 [History] Latanoprost 1 drop EYEBOTH DAILY 06/26/17 [History] Aspirin 81 mg PO DAILY #30 tab.chew 06/27/17 [Rx] Bifidobacter. Bifidum/B.Longum [Florajen Bifidoblend] 460 mg PO DAILY #30 capsule 06/27/17 [Rx] Docusate Sodium [Colace] 100 mg PO BID PRN #30 cap 06/27/17 [Rx] Famotidine [Pepcid] 20 mg PO DAILY #30 tablet 06/27/17 [Rx] Furosemide [Lasix] 40 mg PO DAILY #30 tablet 06/27/17 [Rx] Magnesium Oxide 400 mg PO BID #30 tablet 06/27/17 [Rx] Prednisone [IJD: Prednisone] 10 mg PO DAILY #30 tab 06/27/17 [Rx] Simvastatin [Zocor] 20 mg PO BEDTIME #30 tablet 06/27/17 [Rx] Sulfamethoxazole/Trimethoprim [IJD: Sulfamethoxazole/Trimethoprim DS] 1 tab PO BID #20 tablet 06/27/17 [Rx] Patient Handouts: Acute Kidney Injury, Hyperkalemia, [id number], Heart Attack , [id number], Chronic Kidney Disease, [id number]-eb-[id number], Heart Failure, Easy-to- Read, Community-Acquired Pneumonia, Adult, [id number] Forms: ED Department Discharge Referrals: Eduardo Rosas MD [Primary Care Provider] - (saturday- alberto mace) Alberto Piedra [employer] TESTER [Nurse Practitioner] - - Discharge Summary/Plan Comment DC Time >30 min.: Yes (40 min) - General Info Date of Service: 06/27/17 Admission Dx/Problem (Free Text: Hyperkalemia, NSTEMI, PNA Analy "Ana Rosa" is seen this morning, resting comfortably in chair. She denies c/o pain, no SOB "just usual", no cough. Otherwise no CP, abd pain, n /v/d, back pain or other concerns. Bowels are moving now after being constipated. She is voiding without difficulty. Appetite is good. She is anxious for discharge home to [facility] today. Functional Status: Reports: Pain Controlled, Tolerating Diet, Urinating, Incentive Spirometry. Denies: New Symptoms - Review of Systems General: Reports: No Symptoms, Weakness (improving day-to-day) HEENT: Reports: No Symptoms Pulmonary: Reports: No Symptoms, Shortness of Breath (chronic). Denies: Cough, Sputum Cardiovascular: Reports: No Symptoms, Dyspnea on Exertion (chronic). Denies: Chest Pain, Palpitations, Lightheadedness Gastrointestinal: Reports: No Symptoms. Denies: Abdominal Pain, Nausea, Vomiting Genitourinary: Reports: No Symptoms Musculoskeletal: Reports: No Symptoms Skin: Reports: No Symptoms Neurological: Reports: No Symptoms Psychiatric: Reports: No Symptoms - Patient Data Vitals - Most Recent: Last Vital Signs Temp 98.4 F 06/26/17 20:14 Pulse 67 06/27/17 03:33 Resp 16 06/27/17 03:33 BP 89/64 L 06/27/17 03:33 Pulse Ox 92 L 06/27/17 06:24 Weight - Most Recent: 177 lb 3.2 oz I&O - Last 24 hours: Intake & Output 06/26/17 06/27/17 06/27/17 22:59 06:59 14:59 Intake Total 600 250 Output Total 28 650 Balance 572 -400 Lab Results - Last 24 hrs: Laboratory Results - last 24 hr 06/26/17 06/26/17 06/27/17 Range/Units 06:20 11:37 05:08 WBC 5.46 4.98 (3.98-10.04) K/mm3 RBC 2.96 L 2.73 L (3.98-5.22) M/mm3 Hgb 9.9 L 9.2 L (11.2-15.7) gm/L Hct 30.6 L 28.3 L (34.1-44.9) % MCV 103.4 H 103.7 H (79.4-94.8) fl MCH 33.4 H 33.7 H (25.6-32.2) pg MCHC 32.4 32.5 (32.2-35.5) g/dl RDW Std Deviation 68.8 H 67.1 H (36.4-46.3) fL Plt Count 150 L 132 L (182-369) K/mm3 MPV 11.6 11.3 (9.4-12.3) fl Neut % (Auto) 86.1 H (34.0-71.1) % Lymph % (Auto) 5.3 L (19.3-51.7) % Lawrence % (Auto) 7.9 (4.7-12.5) % Eos % (Auto) 0 L (0.7-5.8) Baso % (Auto) 0.2 (0.1-1.2) % Neut # (Auto) 4.70 (1.56-6.13) K/mm3 Lymph # (Auto) 0.29 L (1.18-3.74) K/mm3 Lawrence # (Auto) 0.43 H (0.24-0.36) K/mm3 Eos # (Auto) 0.00 L (0.04-0.36) K/mm3 Baso # (Auto) 0.01 (0.01-0.08) K/mm3 Manual Slide Review Abnormal smear Sodium (136-145) mEq/L Potassium (3.5-5.1) mEq/L Chloride (98-107) mEq/L Carbon Dioxide (21-32) mEq/L Anion Gap (5-15) BUN (7-18) mg/dL Creatinine (0.55-1.02) mg/dL Est Cr Clr Drug Dosing mL/min Estimated GFR (MDRD) (>60) mL/min BUN/Creatinine Ratio (14-18) Glucose (83-115) mg/dL Calcium (8.5-10.1) mg/dL Magnesium (1.8-2.4) mg/dl NT-Pro-B Natriuret Pep > 08620 H (0-450) pg/mL 06/27/17 Range/Units 05:08 WBC (3.98-10.04) K/mm3 RBC (3.98-5.22) M/mm3 Hgb (11.2-15.7) gm/L Hct (34.1-44.9) % MCV (79.4-94.8) fl MCH (25.6-32.2) pg MCHC (32.2-35.5) g/dl RDW Std Deviation (36.4-46.3) fL Plt Count (182-369) K/mm3 MPV (9.4-12.3) fl Neut % (Auto) (34.0-71.1) % Lymph % (Auto) (19.3-51.7) % Lawrence % (Auto) (4.7-12.5) % Eos % (Auto) (0.7-5.8) Baso % (Auto) (0.1-1.2) % Neut # (Auto) (1.56-6.13) K/mm3 Lymph # (Auto) (1.18-3.74) K/mm3 Lawrence # (Auto) (0.24-0.36) K/mm3 Eos # (Auto) (0.04-0.36) K/mm3 Baso # (Auto) (0.01-0.08) K/mm3 Manual Slide Review Sodium 140 (136-145) mEq/L Potassium 4.2 (3.5-5.1) mEq/L Chloride 108 H (98-107) mEq/L Carbon Dioxide 25 (21-32) mEq/L Anion Gap 11.2 (5-15) BUN 67 H (7-18) mg/dL Creatinine 2.8 H (0.55-1.02) mg/dL Est Cr Clr Drug Dosing 11.76 mL/min Estimated GFR (MDRD) 16 (>60) mL/min BUN/Creatinine Ratio 23.9 H (14-18) Glucose 188 H (83-115) mg/dL Calcium 9.1 (8.5-10.1) mg/dL Magnesium 2.3 (1.8-2.4) mg/dl NT-Pro-B Natriuret Pep (0-450) pg/mL SISSY Results - Last 24 hrs: Microbiology 06/22/17 17:45 Aerobic Blood Culture - Preliminary Blood - Venous - Lab Draw NO GROWTH AFTER 4 DAYS Anaerobic Blood Culture - Preliminary NO GROWTH AFTER 4 DAYS 06/22/17 17:25 Aerobic Blood Culture - Preliminary Blood - Venous NO GROWTH AFTER 4 DAYS Anaerobic Blood Culture - Preliminary NO GROWTH AFTER 4 DAYS 06/23/17 11:00 Gram Stain - Final Sputum - Expectorated Sputum Culture - Final 06/22/17 17:55 Streptococcus pneumoniae Antigen (M - Final Urine - Unspecified Med Orders - Current: Current Medications Acetaminophen (Tylenol) 650 mg PO Q4H PRN PRN Reason: Pain (Mild 1-3)/fever Hydrocodone Bitart/Acetaminophen ([place] 325-5 Mg) 1 tab PO Q4H PRN PRN Reason: Pain (moderate 4-6) Albuterol (Proventil Hfa) 0 gm INH ASDIRECTED PRN PRN Reason: Shortness of Breath Albuterol/Ipratropium (Duoneb 3.0-0.5 Mg/3 Ml) 3 ml NEB Q4H PRN PRN Reason: Shortness Of Breath/wheezing Last Admin: 06/22/17 01:23 Dose: 3 ml Aspirin (Aspirin) 81 mg PO DAILY [facility] Last Admin: 06/26/17 09:13 Dose: 81 mg Bisacodyl (Dulcolax) 5 mg PO DAILY PRN PRN Reason: Constipation Last Admin: 06/23/17 06:05 Dose: 5 mg Bisacodyl (Dulcolax) 10 mg RECTAL DAILY PRN PRN Reason: Constipation Diltiazem HCl (Cardizem) 30 mg PO BID [facility] Last Admin: 06/26/17 20:13 Dose: 30 mg Docusate Sodium (Colace) 100 mg PO BID PRN PRN Reason: Constipation Last Admin: 06/23/17 09:47 Dose: 100 mg Famotidine (Pepcid) 20 mg PO DAILY [facility] Last Admin: 06/26/17 09:13 Dose: 20 mg Folic Acid (Folic Acid) 1 mg PO DAILY [facility] Last Admin: 06/26/17 09:13 Dose: 1 mg Guaifenesin/Phenylephrine HCl (Robitussin Dm) 10 ml PO Q6H PRN PRN Reason: Cough Last Admin: 06/23/17 09:41 Dose: 10 ml Heparin Sodium (Porcine) (Heparin Sodium) 5,000 units SUBCUT Q12HR [facility] Last Admin: 06/26/17 20:13 Dose: 5,000 units Hydralazine HCl (Apresoline) 10 mg IVPUSH Q4H PRN PRN Reason: Hypertension Hydrocortisone Sodium Succinate (Solu-Cortef) 50 mg IVPUSH Q12H [facility] Last Admin: 06/26/17 20:13 Dose: 50 mg Promethazine HCl 6.25 mg/ (Sodium Chloride) 50.25 mls @ 100 mls/hr IV Q6H PRN PRN Reason: Nausea/Vomiting Levothyroxine Sodium (Synthroid) 100 mcg PO ACBREAKFAST [facility] Last Admin: 06/27/17 05:15 Dose: 100 mcg Lorazepam (Ativan) 0.25 mg IV Q6H PRN PRN Reason: Anxiety Magnesium Hydroxide (Milk Of Magnesia) 30 ml PO Q12H PRN PRN Reason: Constipation Magnesium Oxide (Magnesium Oxide) 400 mg PO BID [facility] Last Admin: 06/26/17 20:13 Dose: 400 mg Magnesium Sulfate (Pharmacy To Dose - Magnesium Replacement) 1 dose .XX ASDIRECTED [facility] Methotrexate (Methotrexate) 5 mg PO Mo@0900 [facility] Last Admin: 06/24/17 08:34 Dose: 5 mg Metoprolol Succinate (Toprol Xl) 25 mg PO BID [facility] Last Admin: 06/26/17 20:17 Dose: 25 mg Metoprolol Tartrate (Lopressor) 5 mg IVPUSH Q4H PRN PRN Reason: Tachycardia Last Admin: 06/22/17 03:22 Dose: 5 mg Midodrine (Midodrine) 5 mg PO Q6H PRN PRN Reason: Hypotension Last Admin: 06/27/17 03:39 Dose: 5 mg Mometasone Furoate/Formoterol Fumar (Dulera 200-5 Mcg) 2 puff IH DAILY [facility] Last Admin: 06/26/17 10:10 Dose: 2 puff Multivitamins (Thera) 1 each PO DAILY [facility] Last Admin: 06/26/17 09:15 Dose: 1 each Ondansetron HCl (Zofran) 4 mg IV Q6H PRN PRN Reason: Nausea/Vomiting Polyethylene Glycol (Miralax) 17 gm PO DAILY PRN PRN Reason: Constipation Last Admin: 06/23/17 09:47 Dose: 17 gm Potassium Chloride (Pharmacy To Dose - Potassium Replacement) 1 dose .XX ASDIRECTED DANIEL Saccharomyces Boulardii (Florastor) 250 mg PO BID [facility] Last Admin: 06/26/17 20:13 Dose: 250 mg Senna/Docusate Sodium (Senna Plus) 1 tab PO BID PRN PRN Reason: Constipation Simvastatin (Zocor) 20 mg PO BEDTIME [facility] Last Admin: 06/26/17 20:13 Dose: 20 mg Sodium Chloride (Saline Flush) 10 ml FLUSH ASDIRECTED PRN PRN Reason: Keep Vein Open Last Admin: 06/19/17 22:01 Dose: 10 ml Temazepam (Restoril) 7.5 mg PO BEDTIME PRN PRN Reason: Sleep Tiotropium [place] (Spiriva Handihaler) 18 mcg INH DAILY [facility] Last Admin: 06/26/17 10:10 Dose: 1 ampule Tramadol HCl (Ultram) 50 mg PO BID PRN PRN Reason: Pain Trimethoprim/Sulfamethoxazole (Septra Ds) 1 tab PO BID [facility] Discontinued Medications Albuterol (Proventil Neb Soln) 2.5 mg NEB ONETIME ONE Stop: 06/19/17 22:54 Last Admin: 06/19/17 23:10 Dose: 2.5 mg Albuterol (Proventil Neb Soln) 2.5 mg NEB ONETIME ONE Stop: 06/19/17 22:55 Last Admin: 06/19/17 23:10 Dose: 2.5 mg Albuterol (Proventil Neb Soln) 2.5 mg NEB ONETIME ONE Stop: 06/19/17 22:56 Last Admin: 06/19/17 23:11 Dose: 2.5 mg Albuterol/Ipratropium (Duoneb 3.0-0.5 Mg/3 Ml) 3 ml INH Q4H PRN PRN Reason: Shortness of Breath Aspirin (Ecotrin) 325 mg PO ONETIME ONE Stop: 06/20/17 12:37 Last Admin: 06/20/17 14:32 Dose: Not Given Aspirin (Ecotrin) 325 mg PO ONETIME ONE Stop: 06/20/17 14:32 Last Admin: 06/20/17 14:38 Dose: 325 mg Bumetanide (Bumex) 1.5 mg IVPUSH ONETIME ONE Stop: 06/22/17 01:45 Last Admin: 06/22/17 01:53 Dose: 1.5 mg Calcium Gluconate (Calcium Gluconate) 1 gm IVPUSH ONETIME ONE Stop: 06/19/17 22:56 Last Admin: 06/19/17 23:06 Dose: 1 gm Diltiazem HCl (Cardizem) 60 mg PO BID [facility] Last Admin: 06/25/17 09:18 Dose: Not Given Fluconazole (Diflucan) 100 mg PO DAILY [facility] Stop: 06/22/17 09:01 Last Admin: 06/22/17 08:48 Dose: 100 mg Furosemide (Lasix) 10 mg IVPUSH NOW ONE Stop: 06/23/17 10:16 Last Admin: 06/23/17 10:52 Dose: 10 mg Furosemide (Lasix) 40 mg IVPUSH NOW ONE Stop: 06/27/17 06:27 Last Admin: 06/27/17 07:04 Dose: 40 mg Heparin Sodium (Porcine) (Heparin Sodium) 4,000 units IVPUSH .BOLUS ONE Stop: 06/20/17 10:51 Last Admin: 06/20/17 11:45 Dose: Not Given Heparin Sodium (Porcine) (Heparin Sodium) 4,000 units IVPUSH .BOLUS ONE Stop: 06/20/17 11:16 Last Admin: 06/20/17 11:45 Dose: 4,000 units Heparin Sodium (Porcine) (Heparin Sodium) 2,000 units IVPUSH .BOLUS ONE Stop: 06/20/17 20:58 Last Admin: 06/20/17 21:18 Dose: Not Given Heparin Sodium (Porcine) (Heparin Sodium) Confirm Administered Dose 5,000 units .ROUTE .STK-MED ONE Stop: 06/20/17 21:07 Last Admin: 06/20/17 21:17 Dose: 2,000 units Heparin Sodium (Porcine) (Heparin Sodium) 1,000 units IVPUSH .BOLUS ONE Stop: 06/21/17 15:12 Last Admin: 06/21/17 15:34 Dose: 1,000 units Heparin Sodium (Porcine) (Heparin Sodium) 1,000 units IVPUSH ONETIME ONE Stop: 06/21/17 22:23 Last Admin: 06/21/17 22:56 Dose: 1,000 units Hydrocortisone Sodium Succinate (Solu-Cortef) 100 mg IVPUSH Q6H [facility] Last Admin: 06/26/17 05:38 Dose: 100 mg Sodium Chloride (Normal Saline) 1,000 mls @ 999 mls/hr IV ONETIME ONE Stop: 06/19/17 22:55 Last Admin: 06/19/17 22:02 Dose: 999 mls/hr Sodium Chloride (Normal Saline) 1,000 mls @ 50 mls/hr IV ASDIRECTED DANIEL Stop: 06/20/17 06:00 Last Admin: 06/20/17 01:20 Dose: 50 mls/hr Sodium Chloride (Normal Saline) 1,000 mls @ 25 mls/hr IV ASDIRECTED [facility] Heparin Sodium/Dextrose (Heparin 25,000 Units In D5w 500 Ml) 25,000 units in 500 mls @ 9 mls/hr IV TITRATE DANIEL; 6 UNITS/KG/HR PRN Reason: Protocol Last Admin: 06/20/17 14:35 Dose: 9 mls/hr Azithromycin 500 mg/ Sodium (Chloride) 250 mls @ 250 mls/hr IV Q24H [facility] Last Admin: 06/23/17 06:04 Dose: 250 mls/hr Ceftriaxone Sodium 1 gm/ (Sodium Chloride) 100 mls @ 200 mls/hr IV Q24H [facility] Last Admin: 06/23/17 13:51 Dose: Not Given Magnesium Sulfate/Dextrose 1 (gm/ Premix) 100 mls @ 100 mls/hr IV ONETIME ONE Stop: 06/22/17 10:23 Last Admin: 06/22/17 10:17 Dose: 100 mls/hr Piperacillin Sod/Tazobactam (Sod 4.5 gm/ Sodium Chloride) 100 mls @ 25 mls/hr IV Q12H [facility] Last Admin: 06/27/17 05:15 Dose: 25 mls/hr Piperacillin Sod/Tazobactam (Sod 4.5 gm/ Sodium Chloride) 100 mls @ 200 mls/hr IV ONETIME ONE Stop: 06/23/17 09:29 Last Admin: 06/23/17 09:33 Dose: 200 mls/hr Vancomycin HCl 1 gm/ Sodium (Chloride) 250 mls @ 250 mls/hr IV ONETIME ONE Stop: 06/23/17 10:29 Last Admin: 06/23/17 11:51 Dose: 250 mls/hr Vancomycin HCl 500 mg/ Sodium (Chloride) 100 mls @ 100 mls/hr IV ONETIME ONE Stop: 06/23/17 13:14 Last Admin: 06/23/17 13:35 Dose: 100 mls/hr Magnesium Sulfate/Dextrose 1 (gm/ Premix) 100 mls @ 50 mls/hr IV ONETIME ONE Stop: 06/24/17 11:29 Last Admin: 06/24/17 09:41 Dose: 50 mls/hr Vancomycin HCl 1 gm/ Sodium (Chloride) 250 mls @ 250 mls/hr IV Q48H [facility] Last Admin: 06/25/17 12:40 Dose: 250 mls/hr Magnesium Oxide (Magnesium Oxide) 400 mg PO ONETIME ONE Stop: 06/21/17 10:01 Last Admin: 06/21/17 09:56 Dose: 400 mg Magnesium Oxide (Magnesium Oxide) 400 mg PO ONETIME ONE Stop: 06/23/17 11:01 Last Admin: 06/23/17 11:51 Dose: 400 mg Metoprolol Succinate (Toprol Xl) 25 mg PO DAILY [facility] Last Admin: 06/20/17 08:53 Dose: 25 mg Metoprolol Succinate (Toprol Xl) 50 mg PO DAILY [facility] Last Admin: 06/25/17 09:18 Dose: Not Given Midodrine (Midodrine) 5 mg PO TID DANIEL Stop: 06/22/17 21:01 Last Admin: 06/22/17 21:22 Dose: 5 mg Midodrine (Midodrine) 5 mg PO TIDAC DANIEL Last Admin: 06/23/17 16:23 Dose: 5 mg Midodrine (Midodrine) 5 mg PO NOW STA Stop: 06/23/17 13:50 Last Admin: 06/23/17 14:20 Dose: 5 mg Morphine Sulfate (Morphine) 0.25 mg IVPUSH ONETIME ONE Stop: 06/22/17 11:13 Last Admin: 06/22/17 12:15 Dose: 0.25 mg Non-Formulary Medication (Fluticasone/Salmeterol) 1 puff INH ASDIRECTED PRN PRN Reason: Shortness of Breath Potassium Chloride (Klor-Con M20) 20 meq PO ONETIME ONE Stop: 06/25/17 17:01 Last Admin: 06/25/17 18:35 Dose: 20 meq Prednisone (Prednisone) 10 mg PO DAILY [facility] Last Admin: 06/20/17 08:51 Dose: 10 mg Prednisone (Prednisone) 20 mg PO WITHBREAKFAST [facility] Last Admin: 06/23/17 06:05 Dose: 20 mg Simvastatin (Zocor) 10 mg PO BEDTIME [facility] Sodium Bicarbonate (Sodium Bicarbonate 8.4%) 50 meq IVPUSH ONETIME ONE Stop: 06/19/17 22:58 Last Admin: 06/19/17 23:06 Dose: 50 meq Sodium Polystyrene Sulfonate (Kayexalate) 15 gm PO ONETIME ONE Stop: 06/19/17 22:57 Last Admin: 06/19/17 23:06 Dose: 15 gm Sodium Polystyrene Sulfonate (Kayexalate) 45 gm RECTAL NOW ONE Stop: 06/20/17 00:46 Last Admin: 06/20/17 01:34 Dose: 45 gm Sodium Polystyrene Sulfonate (Kayexalate) 30 gm PO NOW ONE Stop: 06/21/17 11:31 Last Admin: 06/21/17 12:31 Dose: 30 gm Vancomycin HCl (Pharmacy To Dose - Vancomycin) 0 dose .XX ASDIRECTED PRN PRN Reason: RX TO DOSE VANCOMYCIN - Exam Quality Assessment: Reports: Supplemental Oxygen, DVT Prophylaxis General: Reports: Alert, Oriented, Cooperative, No Acute Distress HEENT: Reports: Pupils Equal, EOMI, Mucous Membr. Moist/[place] Neck: Reports: Supple Lungs: Reports: Normal Respiratory Effort, Decreased Breath Sounds Cardiovascular: Reports: Regular Rate, Regular Rhythm, No Murmurs GI/Abdominal Exam: Normal Bowel Sounds, Soft, Non-Tender, No Organomegaly (Female) Exam: Deferred Rectal (Female) Exam: Deferred Back Exam: Reports: Normal Inspection Extremities: Normal Inspection, No Pedal Edema, Normal Capillary Refill Neurological: Reports: No New Focal Deficit Psy/Mental Status: Reports: Alert, Normal Affect, Normal Mood *Q Meaningful Use (DIS) - VTE *Q VTE Criteria *Q: - Stroke *Q Stroke Criteria *Q: - AMI *Q AMI Criteria *Q:
[2017-06-27] MEDS: Tiotropium Inhaler 18 MCG Inhalation Powder Cap Kit of 5 INH SCH (08:57)
[2017-06-27] MEDS: Formoterol/Mometasone 200-5 MCG 8.8 GM Inhaler IH SCH (08:57)
[2017-06-27] MEDS ORDERED: Sulfamethoxazole/Trimethoprim 800-160 MG Tab PO SCH (09:00)
[2017-06-27] MEDS: Hydrocortisone Sodium Succinate 100 MG/2 ML SDV IVPUSH SCH (09:14)
[2017-06-27] MEDS: Saccharomyces Boulardii (Probiotic) 250 MG Cap PO SCH (09:16)
[2017-06-27] MEDS: Heparin Sodium 5,000 Units/ML Vial SUBCUT SCH (09:16)
[2017-06-27] MEDS: Metoprolol Succinate 50 MG Tab.ER PO SCH (09:17)
[2017-06-27] MEDS: Aspirin 81 MG Tab.Chew PO SCH (09:17)
[2017-06-27] MEDS: Multivitamins,Therapeutic Tab PO SCH (09:19)
[2017-06-27] MEDS: Famotidine 20 MG Tab PO SCH (09:19)
[2017-06-27] MEDS: Diltiazem IR 30 MG Tab PO SCH (09:19)
[2017-06-27] MEDS: Magnesium Oxide 400 MG Tab PO SCH (09:19)
[2017-06-27] MEDS: Folic Acid 1 MG Tab PO SCH (09:19)
[2017-06-27] MEDS ORDERED: Fluconazole 100 MG Tab PO ONE (12:21)
[2017-06-27] MEDS ORDERED: Clotrimazole 10 MG Troche PO ONE (12:21)
[2017-06-27] MEDS ORDERED: Witch Hazel Medicated Pads 100/Jar TOP PRN (12:41)
== END 2017-06-27 13:20 | DRG 640 ==
LOC: JD.ED 20:41 → JD.MS 23:42
PROVIDERS: ADMIT Internal Medicine; ATTEND Internal Medicine
DX: E87.5 Hyperkalemia (principal); I21.4 Non-ST elevation (NSTEMI) myocardial infarction; J18.9 Pneumonia, unspecified organism; N18.4 Chronic kidney disease, stage 4 (severe); N17.9 Acute kidney failure, unspecified; E78.00 Pure hypercholesterolemia, unspecified; I12.9 Hypertensive chronic kidney disease with stage 1 through stage 4 chronic kidney disease, or unspecified chronic kidney disease; Z87.891 Personal history of nicotine dependence; R74.8 Abnormal levels of other serum enzymes; J44.9 Chronic obstructive pulmonary disease, unspecified; E03.9 Hypothyroidism, unspecified; E66.9 Obesity, unspecified; M19.90 Unspecified osteoarthritis, unspecified site; L40.9 Psoriasis, unspecified; R06.09 Other forms of dyspnea; H54.7 Unspecified visual loss; Z85.118 Personal history of other malignant neoplasm of bronchus and lung; Z66 Do not resuscitate; Z88.1 Allergy status to other antibiotic agents; Z99.81 Dependence on supplemental oxygen; Z79.52 Long term (current) use of systemic steroids; Z79.899 Other long term (current) drug therapy; E83.42 Hypomagnesemia; R06.03 Acute respiratory distress; Y95 Nosocomial condition; I95.9 Hypotension, unspecified; R49.0 Dysphonia; Z68.30 Body mass index [BMI] 30.0-30.9, adult; N28.9 Disorder of kidney and ureter, unspecified
CPT/HCPCS: 36415; 71010; 80053; 82553; 83735; 83880; 84484; 85025; 93005; 94640 ×6; 96361; 96374; 96375; 99285; A9270; J0610; J7040; J7050; 71020; 71020-26; 71250; 71250-26; 76770; 76770-26; 80048; 80061; 80069; 80202; 82533; 84443; 85027; 85730; 86140; 86738; 87040; 87070; 87205; 87641; 87899; 93010; 94664; 94667; 94668; 94760; 94761; 97110-GO; 97110-GP; 97116-GP; 97162-GP; 97165-GO; 97530-GO; 97530-GP; 99223; 99231; 99232; 99233; 99239; 99284-25; J0456; J0696; J1644; J1720; J1940; J2270; J2543; J3370; J3475; J3490; J7030; J8610

== ENCOUNTER 2017-07-04 15:40 | Emergency (ER) | payer MEDICARE, BC ==
[2017-07-04] MEDS ORDERED: Albuterol 0.083% 2.5 MG/3 ML Neb Soln NEB ONE ×3 (15:58→18:28)
--- NOTE | 2017-07-04 16:03 | EDM.PDOC ---
ED HPI GENERAL MEDICAL PROBLEM - General Chief Complaint: Respiratory Problem Stated Complaint: [facility] Time Seen by Provider: 07/04/17 15:49 Source of Information: Reports: Patient History Limitations: Reports: Respiratory Distress - History of Present Illness INITIAL COMMENTS - FREE TEXT/NARRATIVE: Patient is a 82-year-old female with history of hypertension, COPD, chronic kidney disease stage IV, congestive heart failure, and coronary artery disease with history of an STEMI who was recently discharged from the hospital 2016. She was admitted to the hospital for hyperkalemia and acute on chronic kidney failure. Creatinine at that time was 4.7. Potassium was 6.5 with EKG changes and with a elevated troponin. Patient was diagnosed with having an STEMI. In addition proBNP was elevated along with findings on chest x-ray and examination concerning for fluid overload. Upon discharge patient's creatinine was 2.8. She is following Dr. Perez Dietitian at [facility]. Initial home dose of Lasix was 80 mg by mouth. She was also recently prescribed spironolactone prior to admission. She was discharged on 40 mg of by mouth Lasix. She was found to be anemic with 9.9 hemoglobin upon discharge. Potassium was 3.4 on discharge. Patient takes prednisone 10mg daily as well. She complains of worsening shortness of breath, poor appetite, and fatigue. This all progressively got worse today. She denies any chest pain, fever, abdominal pain, dysuria, pain to her lower extremities, or any additional complaints. - Related Data Allergies Allergy/AdvReac Type Severity Reaction Status Date / Time [facility] Allergy Hives Verified 07/04/17 15:59 Home Meds: Home Meds Albuterol/Ipratropium [DuoNeb 3.0-0.5 MG/3 ML] 1 dose INH QID PRN 05/20/17 [ History] Allopurinol [Zyloprim] 200 mg PO DAILY 05/20/17 [History] Diltiazem HCl [Cardizem] 60 mg PO BID 05/20/17 [History] Fluticasone/Salmeterol [Advair 250-50 Diskus] 1 puff INH BID PRN 05/20/17 [ History] Methotrexate 5 mg PO WEEKLY 05/20/17 [History] Folic Acid 1 mg PO DAILY #20 tablet 05/24/17 [Rx] Levothyroxine [Synthroid] 100 mcg PO ACBREAKFAST #20 tablet 05/24/17 [Rx] Metoprolol Succinate [Toprol XL] 25 mg PO DAILY #20 tab.er 05/24/17 [Rx] Tiotropium [Spiriva HandiHaler] 18 mcg INH DAILY #20 cap 05/24/17 [Rx] Cinnamon Bark [Cinnamon] 500 mg PO DAILY 06/19/17 [History] Garlic 1 tab PO DAILY 06/19/17 [History] Multivitamin [Multivitamins] 1 tab PO DAILY 06/19/17 [History] Niacin [Niacin ER] 1,000 mg PO DAILY 06/20/17 [History] Latanoprost 1 drop EYEBOTH DAILY 06/26/17 [History] Aspirin 81 mg PO DAILY #30 tab.chew 06/27/17 [Rx] Bifidobacter. Bifidum/B.Longum [Florajen Bifidoblend] 460 mg PO DAILY #30 capsule 06/27/17 [Rx] Clotrimazole [Mycelex] 10 mg PO 5XDAY #30 rhonda 06/27/17 [Rx] Docusate Sodium [Colace] 100 mg PO BID PRN #30 cap 06/27/17 [Rx] Famotidine [Pepcid] 20 mg PO DAILY #30 tablet 06/27/17 [Rx] Fluconazole [Diflucan] 100 mg PO DAILY #5 tablet 06/27/17 [Rx] Furosemide [Lasix] 40 mg PO DAILY #30 tablet 06/27/17 [Rx] Magnesium Oxide 400 mg PO BID #30 tablet 06/27/17 [Rx] Prednisone [IJD: Prednisone] 10 mg PO DAILY #30 tab 06/27/17 [Rx] Simvastatin [Zocor] 20 mg PO BEDTIME #30 tablet 06/27/17 [Rx] Sulfamethoxazole/Trimethoprim [IJD: Sulfamethoxazole/Trimethoprim DS] 1 tab PO BID #20 tablet 06/27/17 [Rx] Past Medical History HEENT History: Reports: Impaired Vision Other HEENT History: glasses Cardiovascular History: Reports: High Cholesterol, Hypertension Respiratory History: Reports: COPD Genitourinary History: Reports: Other (See Below) Other Genitourinary History: low kidney function [employer] History: Reports: Other OB/BYN History: 5 kids Musculoskeletal History: Reports: Arthritis Endocrine/Metabolic History: Reports: Hypothyroidism, Obesity/BMI 30+ Oncologic (Cancer) History: Reports: Lung Dermatologic History: Reports: Psoriasis - Past Surgical History HEENT Surgical History: Reports: Adenoidectomy, Cataract Surgery, Tonsillectomy Other Respiratory Surgeries/Procedures: hx lung CA - Patient stated she had 2 of the 3 lobes on the right side removed. Use oxygen at home 1-3L/NC. GI Surgical History: Reports: Cholecystectomy Oncologic Surgical History: Reports: Lobectomy Social & Family History - Family History Family Medical History: Noncontributory - Tobacco Use Smoking Status *Q: Former Smoker Years of Tobacco use: 40 Packs/Tins Daily: 1 Used Tobacco, but Quit: Yes Month Tobacco Last Used: 1993 Second Hand Smoke Exposure: No - Caffeine Use Caffeine Use: Reports: Coffee Other Caffeine Use: couple cups in the morning - Recreational Drug Use Recreational Drug Use: No ED ROS GENERAL - Review of Systems Review Of Systems: See Below Constitutional: Reports: Malaise, Decreased Appetite. Denies: Fever, Chills HEENT: Reports: No Symptoms Respiratory: Reports: Shortness of Breath, Wheezing, Cough. Denies: Pleuritic Chest Pain, Sputum Cardiovascular: Reports: Dyspnea on Exertion, Edema. Denies: Chest Pain, Orthopnea, Palpitations, PND GI/Abdominal: Reports: Decreased Appetite. Denies: Abdominal Pain, Constipation , Diarrhea, Nausea, Vomiting Musculoskeletal: Reports: No Symptoms Skin: Reports: Bruising (to arms from previous blood draws/iv sites. ) Neurological: Reports: No Symptoms ED EXAM, GENERAL - Physical Exam Exam: See Below Exam Limited By: Respiratory Distress (Able to speak in 3-5 word sentences.) General Appearance: Alert, WD/WN, Mild Distress Ears: Hearing Grossly Normal Nose: Normal Inspection Throat/Mouth: Normal Voice, No Airway Compromise, Other (dry mouth) Neck: Normal Inspection, Supple Respiratory/Chest: No Accessory Muscle Use, Chest Non-Tender, Respiratory Distress, Rhonchi (Right lower base/minimal), Wheezing Cardiovascular: Normal Peripheral Pulses, Regular Rate, Rhythm, Systolic Murmur (3/6, left sternal border) Peripheral Pulses: 3+: Radial (L), Radial (R) GI/Abdominal: Normal Bowel Sounds, Soft, Non-Tender, No Organomegaly, No Distention Rectal (Female) Exam: Heme + Stool, Hemorrhoids Back Exam: Normal Inspection Extremities: Normal Inspection, Non-Tender, Pedal Edema (trace to 1+ bilaterally ) Neurological: Alert, Oriented, CN II-XII Intact, Normal Cognition, No Motor/ Sensory Deficits Psychiatric: Normal Affect, Normal Mood Skin Exam: Warm, Dry, Intact Course - Vital Signs Last Recorded V/S: Last Vital Signs Temp 96.9 F 07/04/17 18:44 Pulse 66 07/04/17 18:44 Resp 20 07/04/17 18:44 BP 71/62 L 07/04/17 18:44 Pulse Ox 100 07/04/17 18:44 - Orders/Labs/Meds Orders: Active Orders 24 hr Category Date Time Status EKG Documentation Completion [RC] STAT Care 07/04/17 15:57 Active Glucose [Blood Glucose Check, Bedside] [RC] ASDIRECTED Care 07/04/17 17:56 Active RT Aerosol Therapy [RC] ASDIRECTED Care 07/04/17 15:58 Active RT Aerosol Therapy [RC] ASDIRECTED Care 07/04/17 17:44 Active Chest 2V [CR] Stat Exams 07/04/17 15:56 Taken CULTURE BLOOD [BC] Stat Lab 07/04/17 16:42 Received CULTURE BLOOD [BC] Stat Lab 07/04/17 16:50 Received Blood Culture x2 Reflex Set [OM.PC] Stat Oth 07/04/17 15:56 Ordered Labs: Laboratory Tests 07/04/17 07/04/17 07/04/17 Range/Units 16:38 16:42 16:42 WBC 8.84 (3.98-10.04) K/mm3 RBC 2.59 L (3.98-5.22) M/mm3 Hgb 8.6 L (11.2-15.7) gm/L Hct 25.8 L (34.1-44.9) % MCV 99.6 H (79.4-94.8) fl MCH 33.2 H (25.6-32.2) pg MCHC 33.3 (32.2-35.5) g/dl RDW Std Deviation 60.5 H (36.4-46.3) fL Plt Count 77 L (182-369) K/mm3 MPV 11.1 (9.4-12.3) fl Neut % (Auto) 96.5 H (34.0-71.1) % Lymph % (Auto) 3.3 L (19.3-51.7) % [place] % (Auto) 0.1 L (4.7-12.5) % Eos % (Auto) 0 L (0.7-5.8) Baso % (Auto) 0.0 L (0.1-1.2) % Neut # (Auto) 8.53 H (1.56-6.13) K/mm3 Lymph # (Auto) 0.29 L (1.18-3.74) K/mm3 [place] # (Auto) 0.01 L (0.24-0.36) K/mm3 Eos # (Auto) 0.00 L (0.04-0.36) K/mm3 Baso # (Auto) 0.00 L (0.01-0.08) K/mm3 Manual Slide Review Abnormal smear PT (8.0-13.0) SECONDS INR APTT (22-36) SECONDS Puncture Site Lt radial ABG pH 7.45 (7.35-7.45) ABG pCO2 33.7 L (35.0-45.0) mmHg ABG pO2 70.0 L (80.0-100.0) mmHg ABG HCO3 23.0 (22.0-26.0) meq/L ABG O2 Saturation 97.6 H (96.0-97.0) % ABG Base Excess -0.3 (-2-2.0) Sunil Test Positive A-a Gradient 67 mmHg O2 Delivery Device Nasal cannula Oxygen Flow Rate 2.0 FiO2 28.00 (21.00-100.00) % Sodium 125 L (136-145) mEq/L Potassium 7.6 H* (3.5-5.1) mEq/L Chloride 93 L (98-107) mEq/L Carbon Dioxide 23 (21-32) mEq/L Anion Gap 16.6 H (5-15) BUN 129 H (7-18) mg/dL Creatinine 5.3 H (0.55-1.02) mg/dL Est Cr Clr Drug Dosing 6.07 mL/min Estimated GFR (MDRD) 8 (>60) mL/min BUN/Creatinine Ratio 24.3 H (14-18) Glucose 389 H (83-115) mg/dL Lactic Acid (0.4-2.0) mmol/L Calcium 9.4 (8.5-10.1) mg/dL Magnesium (1.8-2.4) mg/dl Total Bilirubin 0.5 (0.2-1.0) mg/dL AST 24 (15-37) U/L ALT 54 (14-59) U/L Alkaline Phosphatase 63 (46-116) U/L Troponin I (0.00-0.056) ng/mL C-Reactive Protein 1.4 H* (<1.0) mg/dL NT-Pro-B Natriuret Pep (0-450) pg/mL Total Protein 5.3 L (6.4-8.2) g/dl Albumin 2.8 L (3.4-5.0) g/dl Globulin 2.5 gm/dL Albumin/Globulin Ratio 1.1 (1-2) 07/04/17 07/04/17 07/04/17 Range/Units 16:42 16:42 17:10 WBC (3.98-10.04) K/mm3 RBC (3.98-5.22) M/mm3 Hgb (11.2-15.7) gm/L Hct (34.1-44.9) % MCV (79.4-94.8) fl MCH (25.6-32.2) pg MCHC (32.2-35.5) g/dl RDW Std Deviation (36.4-46.3) fL Plt Count (182-369) K/mm3 MPV (9.4-12.3) fl Neut % (Auto) (34.0-71.1) % Lymph % (Auto) (19.3-51.7) % [place] % (Auto) (4.7-12.5) % Eos % (Auto) (0.7-5.8) Baso % (Auto) (0.1-1.2) % Neut # (Auto) (1.56-6.13) K/mm3 Lymph # (Auto) (1.18-3.74) K/mm3 [place] # (Auto) (0.24-0.36) K/mm3 Eos # (Auto) (0.04-0.36) K/mm3 Baso # (Auto) (0.01-0.08) K/mm3 Manual Slide Review PT 12.5 (8.0-13.0) SECONDS INR 1.14 APTT 22 (22-36) SECONDS Puncture Site ABG pH (7.35-7.45) ABG pCO2 (35.0-45.0) mmHg ABG pO2 (80.0-100.0) mmHg ABG HCO3 (22.0-26.0) meq/L ABG O2 Saturation (96.0-97.0) % ABG Base Excess (-2-2.0) Sunil Test A-a Gradient mmHg O2 Delivery Device Oxygen Flow Rate FiO2 (21.00-100.00) % Sodium (136-145) mEq/L Potassium (3.5-5.1) mEq/L Chloride (98-107) mEq/L Carbon Dioxide (21-32) mEq/L Anion Gap (5-15) BUN (7-18) mg/dL Creatinine (0.55-1.02) mg/dL Est Cr Clr Drug Dosing mL/min Estimated GFR (MDRD) (>60) mL/min BUN/Creatinine Ratio (14-18) Glucose (83-115) mg/dL Lactic Acid 1.8 (0.4-2.0) mmol/L Calcium (8.5-10.1) mg/dL Magnesium 4.2 H (1.8-2.4) mg/dl Total Bilirubin (0.2-1.0) mg/dL AST (15-37) U/L ALT (14-59) U/L Alkaline Phosphatase (46-116) U/L Troponin I 0.210 H* (0.00-0.056) ng/mL C-Reactive Protein (<1.0) mg/dL NT-Pro-B Natriuret Pep (0-450) pg/mL Total Protein (6.4-8.2) g/dl Albumin (3.4-5.0) g/dl Globulin gm/dL Albumin/Globulin Ratio (1-2) 07/04/17 07/04/17 Range/Units 18:45 18:45 WBC (3.98-10.04) K/mm3 RBC (3.98-5.22) M/mm3 Hgb (11.2-15.7) gm/L Hct (34.1-44.9) % MCV (79.4-94.8) fl MCH (25.6-32.2) pg MCHC (32.2-35.5) g/dl RDW Std Deviation (36.4-46.3) fL Plt Count (182-369) K/mm3 MPV (9.4-12.3) fl Neut % (Auto) (34.0-71.1) % Lymph % (Auto) (19.3-51.7) % [place] % (Auto) (4.7-12.5) % Eos % (Auto) (0.7-5.8) Baso % (Auto) (0.1-1.2) % Neut # (Auto) (1.56-6.13) K/mm3 Lymph # (Auto) (1.18-3.74) K/mm3 [place] # (Auto) (0.24-0.36) K/mm3 Eos # (Auto) (0.04-0.36) K/mm3 Baso # (Auto) (0.01-0.08) K/mm3 Manual Slide Review PT (8.0-13.0) SECONDS INR APTT (22-36) SECONDS Puncture Site ABG pH (7.35-7.45) ABG pCO2 (35.0-45.0) mmHg ABG pO2 (80.0-100.0) mmHg ABG HCO3 (22.0-26.0) meq/L ABG O2 Saturation (96.0-97.0) % ABG Base Excess (-2-2.0) Sunil Test A-a Gradient mmHg O2 Delivery Device Oxygen Flow Rate FiO2 (21.00-100.00) % Sodium (136-145) mEq/L Potassium 7.3 H* (3.5-5.1) mEq/L Chloride (98-107) mEq/L Carbon Dioxide (21-32) mEq/L Anion Gap (5-15) BUN (7-18) mg/dL Creatinine (0.55-1.02) mg/dL Est Cr Clr Drug Dosing mL/min Estimated GFR (MDRD) (>60) mL/min BUN/Creatinine Ratio (14-18) Glucose (83-115) mg/dL Lactic Acid (0.4-2.0) mmol/L Calcium (8.5-10.1) mg/dL Magnesium (1.8-2.4) mg/dl Total Bilirubin (0.2-1.0) mg/dL AST (15-37) U/L ALT (14-59) U/L Alkaline Phosphatase (46-116) U/L Troponin I (0.00-0.056) ng/mL C-Reactive Protein (<1.0) mg/dL NT-Pro-B Natriuret Pep 2781 H (0-450) pg/mL Total Protein (6.4-8.2) g/dl Albumin (3.4-5.0) g/dl Globulin gm/dL Albumin/Globulin Ratio (1-2) Meds: Medications Discontinued Medications Generic Name Dose Route Start Last Admin Trade Name Freq PRN Reason Stop Dose Admin Albuterol 2.5 mg 07/04/17 15:58 07/04/17 16:19 Proventil Neb Soln NEB 07/04/17 15:59 2.5 mg ONETIME ONE Administration Albuterol 2.5 mg 07/04/17 17:44 07/04/17 18:32 Proventil Neb Soln NEB 07/04/17 17:45 2.5 mg ASDIRECTED ONE Administration Albuterol 7.5 mg 07/04/17 18:28 07/04/17 18:31 Proventil Neb Soln NEB 07/04/17 18:29 7.5 mg ONETIME ONE Administration Albuterol Confirm 07/04/17 18:31 07/04/17 18:31 Proventil Neb Soln Administered 07/04/17 18:32 Not Given Dose 7.5 mg .ROUTE .STK-MED ONE Calcium Gluconate 1 gm 07/04/17 18:07 07/04/17 18:18 Calcium Gluconate IV 07/04/17 18:08 1 gm ONETIME ONE Administration Dextrose/Water 50 ml 07/04/17 17:49 07/04/17 18:12 Dextrose 50% In Water IVPUSH 07/04/17 17:50 50 ml ASDIRECTED ONE Administration Sodium Chloride 500 mls @ 999 mls/hr 07/04/17 18:05 07/04/17 18:19 Normal Saline IV 07/04/17 18:35 999 mls/hr .BOLUS ONE Administration Insulin Human Regular 10 unit 07/04/17 17:44 07/04/17 18:08 Humulin R IVPUSH 07/04/17 17:45 10 units ONETIME ONE Administration Insulin Human Regular 10 unit 07/04/17 18:51 07/04/17 18:52 Humulin R IVPUSH 07/04/17 18:52 10 units ONETIME ONE Administration Protocol Sodium Polystyrene Sulfonate 45 gm 07/04/17 17:45 07/04/17 18:08 Kayexalate PO 07/04/17 17:46 45 gm NOW ONE Administration - Re-Assessments/Exams Free Text/Narrative Re-Assessment/Exam: Reviewed discharge summary dated 06/27/2017. IV established. Ordered albuterol neb treatment 2.5 mg 1. Initial labs and studies include CBC, chemistry panel, blood cultures 2, coag studies, lactic acid, abg, troponin, UA, chest x-ray two-view, and EKG After administration of neb treatment patients work of breathing improved. She appeared to be more comfortable with no change in mentation noted. 07/04/17 16:38 Chest x-ray two-view: No acute findings. Left lower lobe infiltrate improved in comparison to prior study. Stable elevated right hemidiaphragm and compressive atelectasis right lung base. EKG sinus rhythm at a rate of 62 with flattened t waves, flipped T waves in lead 3, MA interval 183, QTC 436, normal P axis. 07/04/17 16:51 07/04/17 17:19 Stool hemoccult test obtained due to hgb 8.6 trending downward from 9.9 L. 1720 Stool Hemoccult was positive for blood. 07/04/17 17:51 Labs reviewed: Sodium 125, potassium 7.6, chloride 93, AG 16.6, BUN 129, creatinine 5.3, glucose 389, magnesium 4.2, troponin 0.210, CRP 1.4, white blood cell count 8.84, hemoglobin 8.6, platelet count 77, neutrophil percentage is 96.5, neutrophil number is 8.53. Magnesium is 4.2. Blood gas ABG PCO2 33.7, ABG PO2 70.0, HCO3 23, ABG O2 saturation 97.6 Ordered albuterol neb treatment continuous, 10 units of insulin IV, and 1 amp of D50, and kayexalate 45 g po 07/04/17 17:55 Called lab no hemolysis. This was retested already with same results. Ordered bedside glucose now and q 07/02. [address] [facility] and spoke with Dr. Goldman. Discussed patient with him. I asked for current vital signs and nursing stated patient BP was 75/47, hr 60's, SPO2 100% on NC 2lpm, Mental status unchanged with no signs of respiratory distress. Ordered bolus of NS 500mls. Instructed to administer additional bolus of NS 500mls if BP unchanged. I was transferred to the E.D with current vital signs. Spoke with Dr. Sunil Meier provider. Requested redraw potassium with notification of results. Agreed with current plan. Ambulance notified for transport. All transfer paperwork completed. 184 Bedside glucose >400 ordered additional 10 units of insulin IV. Blood pressure trending upward. Mentation unchanged. Patient refused 800 mls of NS prior to discharge. Remainder 200mls will be bolused. Instructed ambulance crew to maintain BP above >90 systolic. Patient may require additional IV boluses with continued reassessment of respiratory status with h. 1920 Patient transferred. New potassium level 7.[address] Jay[facility] Meier BNP elevated at 2781. Departure - Departure Time of Disposition: 19:20 Disposition: DC/Tfer to Acute Hospital 02 Condition: Poor Clinical Impression: Hyperkalemia, Elevated troponin GI bleed Qualifiers: GI bleed type/associated pathology: unspecified gastrointestinal hemorrhage type Qualified Code(s): K92.2 - Gastrointestinal hemorrhage, unspecified Renal failure (ARF), acute on chronic Qualifiers: Acute renal failure type: unspecified Chronic kidney disease stage: stage 5, not on chronic dialysis Qualified Code(s): N17.9 - Acute kidney failure, unspecified - Discharge Information Referrals: Eduardo Rosas MD [Primary Care Provider] - Forms: ED Department Discharge - My Orders Last 24 Hours: My Active Orders 07/04/17 15:56 Chest 2V [CR] Stat Blood Culture x2 Reflex Set [OM.PC] Stat 07/04/17 15:57 EKG Documentation Completion [RC] STAT 07/04/17 15:58 RT Aerosol Therapy [RC] ASDIRECTED 07/04/17 16:42 CULTURE BLOOD [BC] Stat 07/04/17 16:50 CULTURE BLOOD [BC] Stat 07/04/17 17:44 RT Aerosol Therapy [RC] ASDIRECTED 07/04/17 17:56 Glucose [Blood Glucose Check, Bedside] [RC] ASDIRECTED - Assessment/Plan Last 24 Hours: My Active Orders 07/04/17 15:56 Chest 2V [CR] Stat Blood Culture x2 Reflex Set [OM.PC] Stat 07/04/17 15:57 EKG Documentation Completion [RC] STAT 07/04/17 15:58 RT Aerosol Therapy [RC] ASDIRECTED 07/04/17 16:42 CULTURE BLOOD [BC] Stat 07/04/17 16:50 CULTURE BLOOD [BC] Stat 07/04/17 17:44 RT Aerosol Therapy [RC] ASDIRECTED 07/04/17 17:56 Glucose [Blood Glucose Check, Bedside] [RC] ASDIRECTED
[2017-07-04] MEDS ORDERED: Insulin Regular, Human 100 Units/ML 3 ML Vial IVPUSH ONE ×2 (17:44→18:51)
[2017-07-04] MEDS ORDERED: Sodium Polystyrene Sulfonate 15 GM/60 ML Susp 60 ML Bot PO ONE (17:45)
[2017-07-04] MEDS ORDERED: 50% Dextrose in Water 50 ML Syringe IVPUSH ONE (17:49)
[2017-07-04] MEDS ORDERED: Sodium Chloride 0.9% 500 ML IV ONE (18:05)
[2017-07-04] MEDS ORDERED: Calcium Gluconate 10% 1 GM/10 ML SDV IV ONE (18:07)
[2017-07-04] MEDS ORDERED: Albuterol 0.083% 2.5 MG/3 ML Neb Soln ONE (18:31)
--- NOTE | 2017-07-05 09:06 | CR ---
Chest: Two views of the chest were obtained. Comparison: Prior chest CT of 06/22/17 and chest x-ray of 06/22/17. Findings: Elevated right hemidiaphragm is seen. Findings are stable from previous exam. Mild atelectasis is seen within the left base. Minimal atelectasis is also seen within the right lung base. Lungs otherwise are clear. Heart size and mediastinum are normal. Bony structures are grossly intact. Surgical clips are seen from prior cholecystectomy. Impression: 1. Mild bibasilar atelectasis as well as elevated right hemidiaphragm which is a stable finding. 2. Nothing acute is otherwise seen on portable chest x-ray. Diagnostic code #2 I agree with preliminary report issued by [facility] ([facility] report finalized on 07/04/17, 5:31 PM Central Time)
== END 2017-07-04 19:20 ==
LOC: JD.ED 15:40
DX: I12.0 Hypertensive chronic kidney disease with stage 5 chronic kidney disease or end stage renal disease (principal); N18.5 Chronic kidney disease, stage 5; N17.9 Acute kidney failure, unspecified; K92.2 Gastrointestinal hemorrhage, unspecified; I25.10 Atherosclerotic heart disease of native coronary artery without angina pectoris; E87.5 Hyperkalemia; R79.89 Other specified abnormal findings of blood chemistry; Z87.891 Personal history of nicotine dependence; E78.00 Pure hypercholesterolemia, unspecified; J44.9 Chronic obstructive pulmonary disease, unspecified; E03.9 Hypothyroidism, unspecified; Z79.82 Long term (current) use of aspirin; Z79.899 Other long term (current) drug therapy; Z88.1 Allergy status to other antibiotic agents
CPT/HCPCS: 36415; 36600; 71046; 80053; 82803; 83605; 83735; 83880; 84132; 84484; 85025; 85610; 85730; 86140; 87040; 93005; 94640; 96361; 96374; 96375; 96376; 99285; A9270; J0610; J1817; J7040; J7060